=== PATIENT | female | born 1970 | race Caucasian/White ===

== ENCOUNTER → 2019-09-22 10:37 | Outpatient (BNVA) | payer MEDICARE, MEDICAID, SELFPAY | PROVIDERS: Family Provider Nurse Practitioner Family; Visit Provider Psychiatry & Neurology Psychiatry | DX: F33.42 Major depressive disorder, recurrent, in full remission (principal); F71 Moderate intellectual disabilities | CPT/HCPCS: 99213 ==

== ENCOUNTER → 2020-01-30 09:30 | Outpatient (BNVA) | payer MEDICARE, MEDICAID, SELFPAY | PROVIDERS: Visit Provider Nurse Practitioner Family | DX: Z00.00 Encounter for general adult medical examination without abnormal findings (principal); F33.42 Major depressive disorder, recurrent, in full remission; Z11.3 Encounter for screening for infections with a predominantly sexual mode of transmission; R19.7 Diarrhea, unspecified; F71 Moderate intellectual disabilities; Z11.1 Encounter for screening for respiratory tuberculosis; Z12.39 Encounter for other screening for malignant neoplasm of breast; Z13.220 Encounter for screening for lipoid disorders; Z23 Encounter for immunization | CPT/HCPCS: 80053; 80061; 81000; 85025; 86580; 86592; 87491; 87591; 87661 ==

== ENCOUNTER → 2020-02-02 10:46 | Outpatient (BNVA) | payer MEDICARE, MEDICAID, SELFPAY | PROVIDERS: Visit Provider Nurse Practitioner Family | DX: Z11.3 Encounter for screening for infections with a predominantly sexual mode of transmission (principal) | CPT/HCPCS: 87491; 87591; 87661 ==

== ENCOUNTER 2020-02-12 13:39 | Outpatient (CLI) | payer MEDICARE, MEDICAID, SELFPAY ==
--- NOTE | 2020-02-12 13:59 | MM_ITS ---
WS: [id number] BILATERAL DIGITAL SCREENING MAMMOGRAPHY WITH CAD CLINICAL INFORMATION: SCREENING HISTORY: Screening mammogram. No current complaints. COMPARISON: November 04, 2018 TECHNIQUE: Bilateral CC and MLO views. FINDINGS: The breasts are composed of heterogeneous fibroglandular density tissue, which can limit the detectio n of small underlying mass lesions. No suspicious mass, asymmetry, calcifications, or architectural d istortion. No evidence of malignancy. MM/[place] [id number] IMPRESSION: BI-RADS: 2-Benign FOLLOW UP: 1 Year Follow-up Recommend return to annual screening mammography.
== END 2020-02-12 13:40 | disposition home or self-care (01) ==
LOC: RADSHAW 13:55
PROVIDERS: PCP Nurse Practitioner Family; Visit Provider Nurse Practitioner Family
DX: Z12.31 Encounter for screening mammogram for malignant neoplasm of breast (principal)
CPT/HCPCS: 77067; 99213

== ENCOUNTER → 2020-02-23 11:45 | Outpatient (BNVA) | payer MEDICARE, MEDICAID, SELFPAY | PROVIDERS: PCP Nurse Practitioner Family; Visit Provider Nurse Practitioner Family | DX: R79.89 Other specified abnormal findings of blood chemistry (principal) | CPT/HCPCS: 80076 ==

== ENCOUNTER → 2020-03-05 10:49 | Outpatient (BNVA) | payer MEDICARE, MEDICAID, SELFPAY | PROVIDERS: PCP Nurse Practitioner Family; Visit Provider Nurse Practitioner Family | DX: R74.8 Abnormal levels of other serum enzymes (principal) | CPT/HCPCS: 80076; 86803 ==

== ENCOUNTER → 2020-03-06 07:28 | Outpatient (BNVA) | payer MEDICARE, MEDICAID, SELFPAY | PROVIDERS: PCP Nurse Practitioner Family; Visit Provider Psychiatry & Neurology Psychiatry | DX: F33.42 Major depressive disorder, recurrent, in full remission (principal); F71 Moderate intellectual disabilities | CPT/HCPCS: 99213 ==

== ENCOUNTER 2020-03-22 07:53 | Outpatient (CLI) | payer MEDICARE, MEDICAID, SELFPAY ==
--- NOTE | 2020-03-22 08:00 | US_ITS ---
WS: [id number] RIGHT UPPER QUADRANT ULTRASOUND HISTORY: elevated liver enzymes COMPARISON: CT 09/08/2018 Liver: 14.7 cm in length. Normal size and echogenicity with no intrahepatic dilatation. No mass. Port al vein is top normal size. Gallbladder: Prior cholecystectomy. CBD: 0.7 cm Pancreas: Normal size and echogenicity. Right kidney: 9.2 cm in length. Normal size kidney. There are multiple cysts within the kidney. The l argest in the mid kidney measures 2.2 x 1.9 x 2.0 cm. No solid mass. Cysts have been present on multi ple prior examinations with only mild increase in size. Aorta and IVC: Unremarkable. No ascites. US/US liver [id number] IMPRESSION: 1. Prior cholecystectomy. 2. Multiple simple RIGHT renal cysts. 3. No intrahepatic duct dilatation.
== END 2020-03-22 07:54 | disposition home or self-care (01) ==
LOC: RAD 07:57
PROVIDERS: PCP Nurse Practitioner Family; Visit Provider Nurse Practitioner Family
DX: R74.8 Abnormal levels of other serum enzymes (principal); N28.1 Cyst of kidney, acquired
CPT/HCPCS: 76705

== ENCOUNTER → 2020-05-20 16:43 | Outpatient (BNVA) | payer MEDICARE, MEDICAID, SELFPAY | PROVIDERS: PCP Nurse Practitioner Family; Visit Provider Nurse Practitioner Family | DX: Z11.59 Encounter for screening for other viral diseases (principal); J06.9 Acute upper respiratory infection, unspecified | CPT/HCPCS: 87635 ==

== ENCOUNTER → 2020-07-22 08:35 | Outpatient (BNVA) | payer MEDICARE, MEDICAID, SELFPAY | PROVIDERS: PCP Nurse Practitioner Family; Visit Provider Nurse Practitioner | DX: I10 Essential (primary) hypertension (principal); Z00.00 Encounter for general adult medical examination without abnormal findings | CPT/HCPCS: 80053; 80061 ==

== ENCOUNTER → 2020-08-06 07:28 | Outpatient (BNVA) | payer MEDICARE, MEDICAID, SELFPAY | PROVIDERS: PCP Nurse Practitioner Family; Visit Provider Psychiatry & Neurology Psychiatry | DX: F33.42 Major depressive disorder, recurrent, in full remission (principal); F71 Moderate intellectual disabilities | CPT/HCPCS: 99213 ==

== ENCOUNTER → 2020-09-10 09:18 | Outpatient (BNVA) | payer MEDICARE, MEDICAID, SELFPAY | PROVIDERS: PCP Nurse Practitioner Family; Visit Provider Nurse Practitioner Family | DX: E83.51 Hypocalcemia (principal) | CPT/HCPCS: 80048 ==

== ENCOUNTER → 2021-01-28 07:22 | Outpatient (BNVA) | payer MEDICARE, MEDICAID, SELFPAY | PROVIDERS: PCP Nurse Practitioner Family; Visit Provider Psychiatry & Neurology Psychiatry | DX: F33.42 Major depressive disorder, recurrent, in full remission (principal); F71 Moderate intellectual disabilities; G47.00 Insomnia, unspecified | CPT/HCPCS: 99214 ==

== ENCOUNTER → 2021-02-04 09:28 | Outpatient (BNVA) | payer MEDICARE, MEDICAID, SELFPAY | PROVIDERS: PCP Nurse Practitioner Family; Visit Provider Nurse Practitioner Family | DX: Z00.00 Encounter for general adult medical examination without abnormal findings (principal); F33.42 Major depressive disorder, recurrent, in full remission; I10 Essential (primary) hypertension; Z11.1 Encounter for screening for respiratory tuberculosis; Z68.32 Body mass index [BMI] 32.0-32.9, adult; Z71.82 Exercise counseling; Z12.31 Encounter for screening mammogram for malignant neoplasm of breast; F71 Moderate intellectual disabilities; Z71.3 Dietary counseling and surveillance | CPT/HCPCS: 80053; 80061; 81003; 84443; 85025 ==

== ENCOUNTER → 2021-02-06 09:53 | Outpatient (BNVA) | payer MEDICARE, MEDICAID, SELFPAY | PROVIDERS: PCP Nurse Practitioner Family; Visit Provider Nurse Practitioner Family | DX: N39.0 Urinary tract infection, site not specified (principal); E83.51 Hypocalcemia | CPT/HCPCS: 81000 ==

== ENCOUNTER → 2021-02-12 14:21 | Outpatient (BNVA) | payer MEDICARE, MEDICAID, SELFPAY | PROVIDERS: PCP Nurse Practitioner Family; Visit Provider Nurse Practitioner Family | DX: N39.0 Urinary tract infection, site not specified (principal) | CPT/HCPCS: 81000 ==

== ENCOUNTER 2021-02-18 14:43 | Emergency (ER) | payer MEDICARE, MEDICAID, SELFPAY ==
[2021-02-18 14:49] VITALS: BMI 31.8
[2021-02-18 15:01] VITALS: BP 156/71; PULSE 70; RESP 18; TEMP 36.9; O2SAT 98
--- NOTE | 2021-02-18 15:20 | ECG_ITS ---
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
--- NOTE | 2021-02-18 15:27 | W.ED.PSYCH ---
HPI - Psych General: Chief Complaint: Psychiatric Symptoms Stated Complaint: PSYCH EVAL Time Seen by Provider: 02/18/21 15:12 History of Present Illness: HPI Narrative: This patient is a 50-year-old female who presents to the emergency department for agitation. Patient has a history of mental retardation and mood disorder. Lives in a local care facility. Patient has had issues with aggression increasing over the past several weeks. Recently had an increase in her Seroquel to 300 mg a day with the patient's aggression still continues. Patient does have as needed Ativan ordered and did take Ativan about 2 hours ago but the medications only for short caregivers brought to the emergency department. Will do medical evaluation treat as needed Associated symptoms: Deny depression Review of Systems General: Reports: 10 or more systems reviewed and unremarkable except in HPI and below Const: Denies: fever(s), chills, body aches or fatigue Eyes: Denies: change in vision or blurry vision ENMT: Denies: throat pain, hoarseness or mouth pain Card: Denies: chest pain, palpitations, irregular heart rhythm, edema, swelling of feet/ankles or lightheadedness Resp: Denies: dyspnea, productive cough, non-productive cough, wheezing or pain on inspiration GI: Denies: abdominal pain, nausea or vomiting : Denies: flank pain, difficulty voiding, dysuria, urinary frequency, urinary urgency or urinary hesitancy Musc: Denies: neck pain, back pain, extremity pain, extremity swelling, joint pain, joint swelling, joint redness, joint warmth or limited range of motion Skin/Breast: Denies: rash, pruritus, erythema or skin tenderness Neuro: Denies: headache(s), numbness in extremities or weakness in extremities Psych: Reports: irritability; Denies: anxiety or depression [facility] ED PFSH: Medical History CKD (chronic kidney disease) Depression, major, recurrent, in complete remission Drug induced akathisia Hypertension Moderate intellectual disabilities PTTD (posterior tibial tendon dysfunction) Social History Second hand smoke exposure: No Alcohol intake: never Lives independently: No Housing: Other Details: skilled nursing Marital status: Single Current occupational status: disabled History of recent travel: No Current gender identity: Female Physical Exam Const: COMMON NORMALS: no acute distress, average body habitus, patient oriented x3, no limitations, healthy appearing, alert and well nourished HENMT: COMMON NORMALS: normocephalic, atraumatic, hearing grossly normal bilaterally, external ears normal, EAC's normal, TM's normal bilaterally, Normal external nose present, Normal nasal mucous membranes and turbinates present, moist oral mucous membranes, oropharynx normal, dentition normal and gingiva normal HEAD & SCALP: normocephalic and atraumatic NOSE: Normal external nose present and Normal nasal mucous membranes and turbinates present EXTERNAL EAR: Yes external ears normal EXTERNAL AUDITORY CANAL: EAC's normal TYMPANIC MEMBRANE: TM's normal bilaterally Neck/C-Spine: COMMON NORMALS: full ROM, no lymphadenopathy, supple, no meningeal signs, no JVD, Thyroid normal and No carotid bruits THYROID: Thyroid normal Chest: COMMONS NORMALS: normal inspection of the chest, normal palpation of entire chest wall, normal inspection of the breasts and normal palpation of the breasts Breast/axilla inspection: Yes normal inspection of the breasts BREAST/AXILLA PALPATION: Yes normal palpation of the breasts Resp: COMMON NORMALS: normal respiratory effort, No retractions, No use of accessory muscles, clear to auscultation bilaterally and percussion normal AUSCULTATION: clear to auscultation bilaterally PERCUSSION: percussion normal Cardio: COMMON NORMALS: no JVD, regular rate, regular rhythm, S1 normal heart sound present, S2 normal heart sound present, No gallops present (Cardio), No clicks present (Cardio), No murmurs present (Cardio), No rub (Cardio) and Peripheral pulses 2+ throughout RATE: regular rate RHYTHM: regular rhythm HEART SOUNDS: S1 normal heart sound present and S2 normal heart sound present PERIPHERAL PULSES: Peripheral pulses 2+ throughout GI: COMMON NORMALS: Normal to inspection, nondistended, normoactive bowel sounds present, Soft to palpation, non-tender, No hepatosplenomegaly present, no masses and no bruits PALPATION: Yes Soft to palpation and Yes No hepatosplenomegaly present : COMMON NORMALS: Yes no CVA tenderness, Yes normal external appearance, Yes normal appearance of the vagina, Yes normal appearance of the cervix, Yes normal bimanual exam, Yes No adnexal tenderness and Yes no masses BLADDER/KIDNEY EXAM: Yes no CVA tenderness BIMANUAL EXAM - VAGINA & UTERUS: Yes normal bimanual exam Back/Pelvis: COMMON NORMALS: no CVA tenderness, thoracic and lumbar spine normal to inspection, no thoracic nor lumbar tenderness, thoraco-lumbar ROM normal and straight leg raise negative bilaterally Extremity: COMMON NORMALS: normal to inspection, full ROM, capillary refill normal, no joint enlargement, no clubbing, cyanosis or edema, no calf tenderness and no pedal edema Neuro: COMMON NORMALS: patient oriented x3 SENSORIUM/ORIENTATION: Yes alert MENINGEAL SIGNS: Yes no meningeal signs Course Reevaluation(s): Reevaluation #1: Patient is at her mental baseline. Has a history of MR. Patient be stable for discharge. Advised nursing staff from her facility to do redirection and follow-up with Dr. Perez for any further medication adjustments. Time: 16:43 Consultations: Consultation #1: I did discuss at length with Dr. Narvaez psychiatry. We did review the patient's history and medications. He is agreeable for patient given Zyprexa in the emergency department and then discharged home recommends nursing staff at the facility to redirection exercises and protocols. And follow-up with Dr. Kemp for any further medication adjustments. States it is okay to go back to 300 of Seroquel for the time being. Until Dr. Perez evaluates Time: 16:44 Vital Signs: Vital signs: Vital Signs Temperature 98.4 F 02/18/21 15:01 Pulse Rate 70 02/18/21 15:01 Respiratory Rate 18 02/18/21 15:01 Blood Pressure 156/71 02/18/21 15:01 Pulse Oximetry 98 02/18/21 15:01 MDM - Psych MDM Narrative: Medical decision making narrative: This patient is a 50-year-old female who presents to the emergency department for agitation. Patient has a history of mental retardation and mood disorder. Lives in a local care facility. Patient has had issues with aggression increasing over the past several weeks. Recently had an increase in her Seroquel to 300 mg a day with the patient's aggression still continues. Patient does have as needed Ativan ordered and did take Ativan about 2 hours ago but the medications only for short caregivers brought to the emergency department. Patient is at her mental baseline. Has a history of MR. Patient be stable for discharge. Advised nursing staff from her facility to do redirection and follow-up with Dr. Perez for any further medication adjustments. I did discuss at length with Dr. Narvaez psychiatry. We did review the patient's history and medications. He is agreeable for patient given Zyprexa in the emergency department and then discharged home recommends nursing staff at the facility to redirection exercises and protocols. And follow-up with Dr. Kemp for any further medication adjustments. States it is okay to go back to 300 of Seroquel for the time being. Until Dr. Perez evaluates Lab Data: Labs: Lab Results 02/18/21 02/18/21 Range/Units 15:30 15:30 WBC 10.1 H (4.0-10.0) 10^3/ uL RBC 4.12 (4.1-5.3) 10^6/u L Hgb 12.8 (11.5-15.3) g/dL Hct 40.1 (37.0-47.0) % MCV 97.3 (81-99) fL MCH 31.1 (28.0-34.0) pg MCHC 31.9 (30.0-36.0) g/dL RDW 13.6 (12.1-15.1) % Plt Count 227 (130-400) 10^3/c mm MPV 11.4 H (7.4-10.4) fL Neut % (Auto) 75.5 % Lymph % (Auto) 17.2 % Maries % (Auto) 5.6 % Eos % (Auto) 0.7 % Baso % (Auto) 0.6 % Neut # (Auto) 7.61 (1.8-7.7) 10^3/u L Lymph # (Auto) 1.7 (0.8-4.8) 10^3/u L Maries # (Auto) 0.6 (0.2-0.9) 10^3/u L Eos # (Auto) 0.1 (0.0-0.8) 10^3/u L Baso # (Auto) 0.1 (0.0-0.1) 10^3/u L Nucleated RBC % (a uto) 0 % Nucleated RBCs # 0.0 /100WBC Sodium 137 (136-145) mmol/L Potassium 4.1 (3.5-5.1) mmol/L Chloride 103 (98-107) mmol/L Carbon Dioxide 23 (22-29) mmol/L Anion Gap 15.1 (5-19) BUN 12 (6-20) mg/dL Creatinine 0.8 (0.5-0.9) mg/dL GFR Calculation 76.6 L (90-130) mL/min Glucose 95 (65-115) mg/dL Calculated Osmolal ity 284 L (285-295) mOsm/k g Calcium 8.9 (8.5-10.5) mg/dL Total Bilirubin 0.2 (0.15-1.2) mg/dL AST 17 (0-32) U/L ALT 14 (0-33) U/L Alkaline Phosphata se 73 (35-105) IU/L Total Protein 6.9 (6.6-8.7) g/dL Albumin 3.9 (3.5-5.2) g/dL Globulin 3.0 (1.3-4.6) g/dL Salicylates < 0.3 L (3-10) mg/dL Acetaminophen < 5.0 L (10-30) ug/mL EKG Data^: EKG 1: Attestation: I personally reviewed and interpreted this EKG as follows: EKG interpretation date: 02/18/21 EKG interpretation time: 15:36 Prior EKG tracings: not available for review Interpretation: Sinus rhythm heart rate 65 normal EKG Discharge Plan Discharge Patient Disposition: Home Clinical Impression: Moderate intellectual disabilities, Aggression aggravated Condition: Stable Prescriptions: No Action polyethylene glycol 3350 [Miralax] 17 gram/dose powder 17 g PO DAILY PRN (Reason: constipation) 30 Days Qty: 119 RF: 5 Dimetapp Cold-Allergy (PE) 1-2.5 mg/5 mL solution 5 ml PO Q6H PRN (Reason: cough) 30 Days Qty: 237 RF: 0 Mylanta Maximum Strength 400-400-40 mg/5 mL suspension 30 ml PO TID PRN (Reason: indigestion) 30 Days Qty: 355 RF: 11 magnesium hydroxide [Milk of Magnesia] 400 mg/5 mL suspension 30 ml PO BID PRN (Reason: indigestion) 30 Days Qty: 3000 RF: 11 L norgest/e.estradiol-e.estrad [Daysee] 0.15 mg-30 mcg (84)/10 mcg (7) tablets,dose pack,3 month See Rx Instructions .ROUTE .COMPLEX 84 Days Qty: 84 RF: 11 acetaminophen [Tylenol] 325 mg tablet 650 mg PO Q6H PRN (Reason: fever of 100.4F or pain) 30 Days Qty: 120 RF: 11 olopatadine 0.2 % drops 1 drp ophthalmic (eye) DAILY@1900 RF: 0 Fish Oil Concentrate 1,000 mg capsule 1,000 mg PO BID@0800,1900 RF: 0 Zoloft 100 mg tablet 200 mg PO DAILY@1900 RF: 0 Seroquel 200 mg tablet 200 mg PO BEDTIME@0700 RF: 0 calcium carbonate-vitamin D3 600 mg(1,500mg) -200 unit tablet 1 tab PO DAILY@0800 RF: 0 Fiber Laxative (ca polycarbo) 625 mg tablet 625 mg PO DAILY@0800 RF: 0 Colace 100 mg capsule 100 mg PO BID@0800,1900 RF: 0 mirtazapine 45 mg tablet 45 mg PO DAILY@1900 RF: 0 lorazepam 1 mg tablet 1 mg PO TID@08,13,19 RF: 0 Flonase Allergy Relief 50 mcg/actuation spray,suspension 2 spray intranasal DAILY@0800 RF: 0 metoprolol tartrate 25 mg tablet 25 mg PO BID@0800,1900 RF: 0 Seroquel 50 mg tablet 50 mg PO BEDTIME@0700 RF: 0 levocetirizine 5 mg tablet 5 mg PO DAILY@1900 RF: 0 Discharge Orders: Discharge ED (Routine); Ordered 02/18/21 Ordered By: Usman Acuña Referrals: Tameka Saucedo FNP-C [Primary Care Provider] - Discharge Diet: Advance as tolerated Patient Instructions: Opioid Safety Activity Restrictions/Additional Instructions: Continue all home medications. May increase back to 300 of Seroquel. Follow-up with Dr. Perez as instructed for any medication adjustments for your chronic conditions Coding Level of Care Code ED Manager Location for Elder Fwd Exam Comprehensive
[2021-02-18 15:52] LABS: Basophils # 0.1 10^3/uL (0.0-0.1); Basophils % 0.6 %; Eosinophils # 0.1 10^3/uL (0.0-0.8); Eosinophils % 0.7 %; Hematocrit 40.1 % (37.0-47.0); Hemoglobin 12.8 g/dL (11.5-15.3); Lymphocytes # 1.7 10^3/uL (0.8-4.8); Lymphocytes % 17.2 %; Mean Corpuscular HGB Conc 31.9 g/dL (30.0-36.0); Mean Corpuscular Hemoglobin 31.1 pg (28.0-34.0); Mean Corpuscular Volume 97.3 fL (81-99); Mean Platelet Volume 11.4 fL (7.4-10.4); Monocytes # 0.6 10^3/uL (0.2-0.9); Monocytes % 5.6 %; Neutrophils # 7.61 10^3/uL (1.8-7.7); Neutrophils % 75.5 %; Nucleated Red Blood Cells % 0 %; Platelet Count 227 10^3/cmm (130-400); Red Blood Count 4.12 10^6/uL (4.1-5.3); Red Cell Distribution Width 13.6 % (12.1-15.1); White Blood Count 10.1 10^3/uL (4.0-10.0)
--- NOTE | 2021-02-18 16:07 | PC.NURSE ---
pt refusing to give urine specimen at this time. offered drink, popcicle, tv... pt states she wants to go home and she will walk out the door.
[2021-02-18 16:09] LABS: Alanine Aminotransferase 14 U/L (0-33); Albumin Level 3.9 g/dL (3.5-5.2); Alkaline Phosphatase 73 IU/L (35-105); Anion Gap 15.1 (5-19); Aspartate Amino Transferase 17 U/L (0-32); Blood Urea Nitrogen 12 mg/dL (6-20); Calcium 8.9 mg/dL (8.5-10.5); Carbon Dioxide 23 mmol/L (22-29); Chloride 103 mmol/L (98-107); Glomerular Filtration Rate 76.6 mL/min (90-130); Glucose 95 mg/dL (65-115); Osmolality Calculated 284 mOsm/kg (285-295); Potassium 4.1 mmol/L (3.5-5.1); Sodium 137 mmol/L (136-145); Total Bilirubin 0.2 mg/dL (0.15-1.2); Total Protein 6.9 g/dL (6.6-8.7)
[2021-02-18 16:12] LABS: Acetaminophen < 5.0 ug/mL (10-30); Salicylate < 0.3 mg/dL (3-10)
[2021-02-18] MEDS: OLANZapine 10 mg TABLET PO (16:54)
== END 2021-02-18 17:01 | disposition home or self-care (01) ==
PROVIDERS: Emergency Provider Emergency Medicine; PCP Nurse Practitioner Family
DX: R45.1 Restlessness and agitation (principal); F71 Moderate intellectual disabilities; I10 Essential (primary) hypertension; Z79.899 Other long term (current) drug therapy
CPT/HCPCS: 80053; 80307; 85025; 93005; 99284

== ENCOUNTER 2021-03-07 13:51 | Outpatient (CLI) | payer MEDICARE, MEDICAID, SELFPAY ==
--- NOTE | 2021-03-07 14:04 | MM_ITS ---
WS: [id number] BILATERAL DIGITAL SCREENING MAMMOGRAPHY WITH CAD CLINICAL INFORMATION: SCREENING HISTORY: Screening mammogram. No current complaints. COMPARISON: February 12, 2020 TECHNIQUE: Bilateral CC and MLO views. FINDINGS: The breasts are composed of heterogeneous fibroglandular density tissue, which can limit the detectio n of small underlying mass lesions. No suspicious mass, asymmetry, calcifications, or architectural d istortion. No evidence of malignancy. MM/[place] [id number] IMPRESSION: BI-RADS: 1-Negative FOLLOW UP: 1 Year Follow-up Recommend return to annual screening mammography.
== END 2021-03-07 13:52 | disposition home or self-care (01) ==
PROVIDERS: PCP Nurse Practitioner Family; Visit Provider Nurse Practitioner Family
DX: F33.42 Major depressive disorder, recurrent, in full remission (principal); Z12.31 Encounter for screening mammogram for malignant neoplasm of breast; G47.00 Insomnia, unspecified; F71 Moderate intellectual disabilities
CPT/HCPCS: 77067; 99214

== ENCOUNTER → 2021-03-13 13:18 | Outpatient (BNVA) | payer MEDICARE, MEDICAID, SELFPAY | PROVIDERS: PCP Nurse Practitioner Family; Visit Provider Nurse Practitioner Family | DX: N39.0 Urinary tract infection, site not specified (principal) | CPT/HCPCS: 81000 ==

== ENCOUNTER → 2021-05-27 13:32 | Outpatient (BNVA) | payer MEDICARE, MEDICAID, SELFPAY | PROVIDERS: PCP Nurse Practitioner Family; Visit Provider Nurse Practitioner Family | DX: N39.0 Urinary tract infection, site not specified (principal); R31.21 Asymptomatic microscopic hematuria | CPT/HCPCS: 81000 ==

== ENCOUNTER → 2021-06-09 08:19 | Outpatient (BNVA) | payer MEDICARE, MEDICAID, SELFPAY | PROVIDERS: PCP Nurse Practitioner Family; Visit Provider Psychiatry & Neurology Psychiatry | DX: F33.42 Major depressive disorder, recurrent, in full remission (principal); F71 Moderate intellectual disabilities; G47.00 Insomnia, unspecified | CPT/HCPCS: 99213 ==

== ENCOUNTER → 2021-06-24 14:23 | Outpatient (BNVA) | payer MEDICARE, MEDICAID, SELFPAY | PROVIDERS: PCP Nurse Practitioner Family; Visit Provider Nurse Practitioner Family | DX: N39.0 Urinary tract infection, site not specified (principal) | CPT/HCPCS: 81000 ==

== ENCOUNTER → 2021-07-22 08:23 | Outpatient (BNVA) | payer MEDICARE, MEDICAID, SELFPAY | PROVIDERS: PCP Nurse Practitioner Family; Visit Provider Nurse Practitioner Family | DX: Z00.00 Encounter for general adult medical examination without abnormal findings (principal); I10 Essential (primary) hypertension | CPT/HCPCS: 80053; 80061; 81000; 85025 ==

== ENCOUNTER 2021-08-27 13:43 | Outpatient (CLI) | payer MEDICARE, MEDICAID, SELFPAY ==
--- NOTE | 2021-08-27 14:15 | US_ITS ---
WS: [id number] ULTRASOUND RENAL TECHNIQUE: Ultrasound examination of both kidneys. CLINICAL INFORMATION: R31.9 - Hematuria, unspecified COMPARISON: None. FINDINGS: Bilateral renal cysts measuring 2.1 x 1.9 x 2.3 cm right mid kidney with one or 2 septation s 1.4 x 1.3 x 1.5 cm left mid kidney with a simple appearance. RIGHT: Right kidney is normal in size and appearance. Echogenicity: Normal. Cortical thickness: 1.3 cm; Normal. Hydronephrosis: None. Perinephric fluid: None. Right kidney measures: 9.1 cm x 4.2 cm x 4.0 cm. LEFT: Left kidney is normal in size and appearance. Echogenicity: Normal. Cortical thickness: 1.3 cm; Normal. Hydronephrosis: None. Perinephric fluid: None. Left kidney measures: 10.1 cm x 4.8 cm x 5.2 cm. Normal visualized aorta. US/US renal BI* [id number] IMPRESSION: 1. Bilateral renal cysts measuring 2.1 x 1.9 x 2.3 cm right mid kidney with on e or 2 septations and 1.4 x 1.3 x 1.5 cm left mid kidney with a simple appearan ce. 2. No hydronephrosis in either kidney. 3. Normal bladder.
== END 2021-08-27 13:44 | disposition home or self-care (01) ==
LOC: RAD 13:50
PROVIDERS: PCP Nurse Practitioner Family; Visit Provider Nurse Practitioner Family
DX: R31.9 Hematuria, unspecified (principal); Q61.02 Congenital multiple renal cysts
CPT/HCPCS: 76770

== ENCOUNTER → 2021-09-16 14:28 | Outpatient (BNVA) | payer MEDICARE, MEDICAID, SELFPAY | PROVIDERS: PCP Nurse Practitioner Family; Visit Provider Nurse Practitioner Family | DX: R39.9 Unspecified symptoms and signs involving the genitourinary system (principal) | CPT/HCPCS: 81000 ==

== ENCOUNTER → 2021-09-22 07:27 | Outpatient (BNVA) | payer MEDICARE, MEDICAID, SELFPAY | PROVIDERS: PCP Nurse Practitioner Family; Visit Provider Psychiatry & Neurology Psychiatry | DX: F33.42 Major depressive disorder, recurrent, in full remission (principal); F71 Moderate intellectual disabilities; G47.00 Insomnia, unspecified | CPT/HCPCS: 99214 ==

== ENCOUNTER → 2021-09-30 13:14 | Outpatient (BNVA) | payer MEDICARE, MEDICAID, SELFPAY | PROVIDERS: PCP Nurse Practitioner Family; Visit Provider Nurse Practitioner Family | DX: N39.0 Urinary tract infection, site not specified (principal); N28.1 Cyst of kidney, acquired | CPT/HCPCS: 81000 ==

== ENCOUNTER → 2021-10-22 10:49 | Outpatient (BNVA) | payer MEDICARE, MEDICAID, SELFPAY | PROVIDERS: PCP Nurse Practitioner Family; Visit Provider Nurse Practitioner Family | DX: N39.0 Urinary tract infection, site not specified (principal); N28.1 Cyst of kidney, acquired | CPT/HCPCS: 81003 ==

== ENCOUNTER 2021-11-14 08:58 | Outpatient (CLI) | payer MEDICARE, MEDICAID, SELFPAY ==
--- NOTE | 2021-11-14 11:00 | CT_ITS ---
WS: [id number] Exam: CT abdomen pelvis wo/w [id number] Date/Time of Exam: 11/14/2021 9:24 AM Reason For Exam: BILATERAL RENAL CYST DLP: 3320.[address] scans at [facility] use at least one of these dose optimization techniques: automated e xposure control; mA and/or kV adjustment per patient size (includes targeted exams where dose is matc hed to clinical indication); or iterative reconstruction. Comparison 09/08/2018. Lower lung zones are clear. The liver, stomach, spleen and pancreas appear normal. Normal adrenal gla nds. The gallbladder surgically absent. Abdominal aorta and IVC are unremarkable in appearance. Multi ple bilateral renal cysts are noted. No sign of renal obstruction. No lymphadenopathy. No free air. S mall bowel loops are normal in caliber. No significant large bowel abnormality seen. No sign of acute appendix. 10 mm cyst in the right ovary, 12 mm cyst in the left ovary. No pelvic lymphadenopathy or free fluid. The uterus is unremarkable as visualized. Intact urinary bladder. The abdominal wall is i ntact. No destructive bone lesions are seen. CT/CT abdomen pelvis wo/w [id number] IMPRESSION: 1. Multiple bilateral renal cysts are noted. No renal obstruction. 2. 10 mm cyst in the right ovary, 12 mm cyst in the left ovary. 3. No mass, lymphadenopathy or acute process in the abdomen or pelvis.
== END 2021-11-14 08:59 | disposition home or self-care (01) ==
LOC: RAD 09:08
PROVIDERS: PCP Nurse Practitioner Family; Visit Provider Urology
DX: N28.1 Cyst of kidney, acquired (principal); N83.201 Unspecified ovarian cyst, right side; N83.202 Unspecified ovarian cyst, left side
CPT/HCPCS: 74178

== ENCOUNTER → 2021-11-17 14:30 | Outpatient (BNVA) | payer MEDICARE, MEDICAID, SELFPAY | PROVIDERS: PCP Nurse Practitioner Family; Visit Provider Urology | DX: N28.1 Cyst of kidney, acquired (principal) | CPT/HCPCS: 81003 ==

== ENCOUNTER → 2021-12-08 11:06 | Outpatient (BNVA) | payer MEDICARE, MEDICAID, SELFPAY | PROVIDERS: PCP Nurse Practitioner Family; Visit Provider Nurse Practitioner Family | DX: I10 Essential (primary) hypertension (principal); E55.9 Vitamin D deficiency, unspecified; N18.9 Chronic kidney disease, unspecified; H61.23 Impacted cerumen, bilateral; K59.00 Constipation, unspecified; F71 Moderate intellectual disabilities | CPT/HCPCS: 80053; 80061; 81000; 82306; 82607; 83735; 84443; 85025 ==

== ENCOUNTER → 2021-12-19 07:02 | Outpatient (BNVA) | payer MEDICARE, MEDICAID, SELFPAY | PROVIDERS: PCP Nurse Practitioner Family; Visit Provider Psychiatry & Neurology Psychiatry | DX: F33.42 Major depressive disorder, recurrent, in full remission (principal); F71 Moderate intellectual disabilities; G47.00 Insomnia, unspecified | CPT/HCPCS: 81000; 99213 ==

== ENCOUNTER → 2022-02-02 11:52 | Outpatient (BNVA) | payer MEDICARE, MEDICAID, SELFPAY | PROVIDERS: PCP Nurse Practitioner Family; Visit Provider Family Medicine | DX: N18.9 Chronic kidney disease, unspecified (principal); I10 Essential (primary) hypertension; E53.8 Deficiency of other specified B group vitamins; G47.00 Insomnia, unspecified; R87.619 Unspecified abnormal cytological findings in specimens from cervix uteri; Z12.31 Encounter for screening mammogram for malignant neoplasm of breast; Z01.419 Encounter for gynecological examination (general) (routine) without abnormal findings | CPT/HCPCS: 80053; 80061; 82607; 84443; 85025; 87624 ==

== ENCOUNTER 2022-02-06 09:25 | Emergency (ER) | payer MEDICARE, MEDICAID, SELFPAY ==
[2022-02-06 10:44] VITALS: BP 156/96; PULSE 67; RESP 15; TEMP 36.2; O2SAT 98; BMI 32.1
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
--- NOTE | 2022-02-06 11:17 | XR_ITS ---
WS: [id number] Exam: XR femur LT min 2V* [id number] Date/Time of Exam: 02/06/2022 11:21 AM Reason For Exam: pain No fractures, soft tissue swelling, or calcifications are noted. The femur is in adequate position. No periosteal reaction is noted. XR/XR femur LT min 2V* [id number] IMPRESSION: Negative left femur.
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
[2022-02-06] MEDS: acetaminophen 500 mg Tablet PO (12:19)
[2022-02-06 13:24] VITALS: BP 146/89; PULSE 96; RESP 18; O2SAT 99
== END 2022-02-06 13:29 ==
PROVIDERS: Emergency Provider Emergency Medicine; PCP Nurse Practitioner Family
DX: S02.609A Fracture of mandible, unspecified, initial encounter for closed fracture (principal); S06.5X9A Traumatic subdural hemorrhage with loss of consciousness of unspecified duration, initial encounter; M25.511 Pain in right shoulder; M79.652 Pain in left thigh; S40.011A Contusion of right shoulder, initial encounter; S70.12XA Contusion of left thigh, initial encounter; Y04.2XXA Assault by strike against or bumped into by another person, initial encounter; I10 Essential (primary) hypertension
CPT/HCPCS: 70450; 70486; 73030; 73552; 99285

== ENCOUNTER 2022-03-27 10:21 | Outpatient (CLI) | payer MEDICARE, OTHER, SELFPAY ==
--- NOTE | 2022-03-27 10:28 | MM_ITS ---
WS: [id number] BILATERAL SCREENING DIGITAL TOMOSYNTHESIS MAMMOGRAM WITH CAD HISTORY: SCREENING COMPARISON: 03/07/2021, 11/04/2018 Bilateral CC and MLO views with tomosynthesis and synthetic mammography submitted. Computer aided det ection analyzed. Breast composition: The breasts are heterogeneously dense, which may obscure small masses. No suspici ous masses, microcalcifications or architectural distortion. MM/[place] [id number] IMPRESSION: BI-RADS: 1-Negative FOLLOW UP: 1 Year Follow-up
== END 2022-03-27 10:22 | disposition home or self-care (01) ==
LOC: RAD 10:21
PROVIDERS: PCP Nurse Practitioner Family; Visit Provider Nurse Practitioner Family
DX: Z12.31 Encounter for screening mammogram for malignant neoplasm of breast (principal)
CPT/HCPCS: 77063; 77067

== ENCOUNTER → 2022-04-22 10:36 | Outpatient (BNVA) | payer MEDICARE, OTHER, SELFPAY | PROVIDERS: PCP Nurse Practitioner Family; Visit Provider Nurse Practitioner Family | DX: N39.0 Urinary tract infection, site not specified (principal) | CPT/HCPCS: 81000 ==

== ENCOUNTER → 2022-06-05 10:15 | Outpatient (BNVA) | payer MEDICARE, MEDICAID, SELFPAY | PROVIDERS: PCP Nurse Practitioner Family; Visit Provider Family Medicine | DX: E53.8 Deficiency of other specified B group vitamins (principal) | CPT/HCPCS: 82607 ==

== ENCOUNTER → 2022-07-17 09:21 | Outpatient (BNVA) | payer MEDICARE, MEDICAID, SELFPAY | PROVIDERS: PCP Nurse Practitioner Family; Visit Provider Nurse Practitioner Family | DX: R30.9 Painful micturition, unspecified (principal); K30 Functional dyspepsia; N39.0 Urinary tract infection, site not specified; K21.9 Gastro-esophageal reflux disease without esophagitis | CPT/HCPCS: 81003; 87077; 87086; 87184 ==

== ENCOUNTER → 2022-07-21 10:41 | Outpatient (BNVA) | payer MEDICARE, MEDICAID, SELFPAY | PROVIDERS: PCP Nurse Practitioner Family; Visit Provider Nurse Practitioner Family | DX: I10 Essential (primary) hypertension (principal); E53.8 Deficiency of other specified B group vitamins | CPT/HCPCS: 80053; 80061; 85025 ==

== ENCOUNTER 2022-09-28 13:20 | Emergency (ER) | payer MEDICARE, MEDICAID, SELFPAY ==
[2022-09-28] VITALS (37 sets, daily range): BP systolic 126–150; BP diastolic 84–95; PULSE 75–94; RESP 10–31; TEMP 36.8; O2SAT 95–99; BMI 32.1
--- NOTE | 2022-09-28 13:53 | ED_ITS ---
HPI - Seizure General: Chief Complaint: Seizure Stated Complaint: SEIZURE Time Seen by Provider: 09/28/22 13:26 History of Present Illness: HPI Narrative: Patient is brought in by EMS after having 2 seizures today. Per the caregiver the patient had 2 seizures within about 10 minutes. States that each 1 lasted a couple of minutes. States that after the second seizure she is back to her baseline mental status. They deny any cold symptoms including no fever, cough, congestion, vomiting, or diarrhea in the last few days. They state that a year ago she suffered a head injury after which she developed seizures. She was on Keppra and doing well until about a month ago when they elected to take her off the Keppra secondary to aggressive behavior. Caregiver states that she has been doing well until today. She is on Ativan 1 mg 3 times a day until a few days ago when they changed it to 2 mg twice a day. Seizure History: Yes Place: Home Associated symptoms: Deny chest pain or fever(s) Review of Systems Const: Reports: body aches; Denies: fever(s) Eyes: Reports: blurry vision; Denies: change in vision ENMT: Denies: throat pain or odynophagia Card: Reports: palpitations; Denies: chest pain Resp: Denies: dyspnea or productive cough GI: Denies: abdominal pain, nausea or vomiting : Denies: flank pain or dysuria Musc: Denies: neck pain or back pain Skin/Breast: Denies: rash or pruritus Neuro: Denies: headache(s) or numbness in extremities Endo: Reports: excessive sweating; Denies: polyuria PFSH ED PFSH: Medical History Bilateral renal cysts CKD (chronic kidney disease) Depression, major, recurrent, in complete remission Drug induced akathisia Hypertension Moderate intellectual disabilities Psychiatric care PTTD (posterior tibial tendon dysfunction) Social History Smoking and tobacco status: never smoked Second hand smoke exposure: No Alcohol intake: never Lives independently: No Housing: Other Details: nursing home Marital status: Single Current occupational status: disabled History of recent travel: No Current gender identity: Female Physical Exam Const: COMMON NORMALS: no acute distress, healthy appearing and alert HENMT: COMMON NORMALS: normocephalic and atraumatic HEAD & SCALP: normocephalic and atraumatic Eye: COMMON NORMALS: Equal, round and reactive pupils present and EOMs intact bilaterally PUPIL: Yes Equal, round and reactive pupils present Neck/C-Spine: COMMON NORMALS: full ROM and supple Resp: COMMON NORMALS: normal respiratory effort, No retractions and No use of accessory muscles Cardio: COMMON NORMALS: regular rate and regular rhythm RATE: regular rate RHYTHM: regular rhythm GI: COMMON NORMALS: Normal to inspection, nondistended, normoactive bowel sounds present, Soft to palpation and non-tender PALPATION: Yes Soft to palpation Back/Pelvis: COMMON NORMALS: thoracic and lumbar spine normal to inspection and no thoracic nor lumbar tenderness Extremity: COMMON NORMALS: normal to inspection and full ROM Neuro: SENSORIUM/ORIENTATION: Yes alert Psych: COMMON NORMALS: mental status grossly normal and cooperative Skin: COMMON NORMALS: no rashes or lesions noted and no wounds GENERAL SKIN EXAM: no rashes or lesions noted Course Vital Signs: Vital signs: Vital Signs Temperature 98.3 F 09/28/22 13:21 Pulse Rate 89 09/28/22 14:55 Respiratory Rate 23 H 09/28/22 14:55 Blood Pressure 140/84 09/28/22 14:55 Pulse Oximetry 97 09/28/22 14:55 Oxygen Delivery Me thod 09/28/22 13:35 MDM - Seizure MDM Narrative Medical decision making narrative: Patient is brought in by EMS after having 2 seizures today. Per the caregiver the patient had 2 seizures within about 10 minutes. States that each 1 lasted a couple of minutes. States that after the second seizure she is back to her baseline mental status. They deny any cold symptoms including no fever, cough, congestion, vomiting, or diarrhea in the last few days. They state that a year ago she suffered a head injury after which she developed seizures. She was on Keppra and doing well until about a month ago when they elected to take her off the Keppra secondary to aggressive behavior. Caregiver states that she has been doing well until today. She is on Ativan 1 mg 3 times a day until a few days ago when they changed it to 2 mg twice a day. Physical exam is unremarkable. Will check labs, and reassess. On reassessment I talked to the patient and caregiver about the test results. Will discharge home at this time with precautions to return for worsening or changing symptoms. Lab Data 09/28/22 14:37 09/28/22 14:37 Labs: Laboratory Results WBC 9.2 10^3/uL (4.0-10.0) 09/28/22 14:37 RBC 4.16 10^6/uL (4.1-5.3) 09/28/22 14:37 Hgb 12.9 g/dL (11.5-15.3) 09/28/22 14:37 Hct 39.9 % (37.0-47.0) 09/28/22 14:37 MCV 95.9 fl (81-99) 09/28/22 14:37 MCH 31.0 pg (28.0-34.0) 09/28/22 14:37 MCHC 32.3 g/dL (30.0-36.0) 09/28/22 14:37 RDW 13.2 % (12.1-15.1) 09/28/22 14:37 Plt Count 218 10^3/cmm (130-400) 09/28/22 14:37 MPV 10.7 fL (7.4-10.4) H 09/28/22 14:37 Neut % (Auto) 73.3 % 09/28/22 14:37 Lymph % (Auto) 18.0 % 09/28/22 14:37 [place] % (Auto) 6.6 % 09/28/22 14:37 Eos % (Auto) 1.3 % 09/28/22 14:37 Baso % (Auto) 0.5 % 09/28/22 14:37 Neut # (Auto) 6.71 10^3/uL (1.8-7.7) 09/28/22 14:37 Lymph # (Auto) 1.7 10^3/uL (0.8-4.8) 09/28/22 14:37 [place] # (Auto) 0.6 10^3/uL (0.2-0.9) 09/28/22 14:37 Eos # (Auto) 0.1 10^3/uL (0.0-0.8) 09/28/22 14:37 Baso # (Auto) 0.1 10^3/uL (0.0-0.1) 09/28/22 14:37 Nucleated RBC % (auto) 0 % 09/28/22 14:37 Nucleated RBCs # 0.0 /100WBC 09/28/22 14:37 Sodium 140 mmol/L (136-145) 09/28/22 14:37 Potassium 4.1 mmol/L (3.5-5.1) 09/28/22 14:37 Chloride 105 mmol/L (98-107) 09/28/22 14:37 Carbon Dioxide 25 mmol/L (22-29) 09/28/22 14:37 Anion Gap 14.1 (5-19) 09/28/22 14:37 BUN 20 mg/dL (6-20) 09/28/22 14:37 Creatinine 0.8 mg/dL (0.5-0.9) 09/28/22 14:37 GFR Calculation 75.9 mL/min (90-130) L 09/28/22 14:37 Glucose 104 mg/dL (65-115) 09/28/22 14:37 Calculated Osmolality 293 mOsm/kg (285-295) 09/28/22 14:37 Calcium 9.2 mg/dL (8.5-10.5) 09/28/22 14:37 Total Bilirubin 0.2 mg/dL (0.15-1.2) 09/28/22 14:37 AST 15 U/L (0-32) 09/28/22 14:37 ALT 18 U/L (0-33) 09/28/22 14:37 Alkaline Phosphatase 67 U/L (35-105) 09/28/22 14:37 Total Protein 6.7 g/dL (6.6-8.7) 09/28/22 14:37 Albumin 4.0 g/dL (3.5-5.2) 09/28/22 14:37 Globulin 2.7 g/dL (1.3-4.6) 09/28/22 14:37 Urine Color Light yellow (Yellow) 09/28/22 15:03 Urine Appearance Hazy (CLEAR) A 09/28/22 15:03 Urine pH 6.5 (5-7) 09/28/22 15:03 Ur Specific [place] 1.010 (1.005-1.030) 09/28/22 15:03 Urine Protein Neg (Negative) 09/28/22 15:03 Urine Glucose (UA) Norm (Normal) 09/28/22 15:03 Urine Ketones Negative (Negative) 09/28/22 15:03 Urine Blood Neg (Negative) 09/28/22 15:03 Urine Nitrate Negative (Negative) 09/28/22 15:03 Urine Bilirubin Neg (Negative) 09/28/22 15:03 Prot Sulfosalicylic Acd Negative (Negative) 09/28/22 15:03 Urine Urobilinogen Norm mg/dL (Negative) 09/28/22 15:03 Ur Leukocyte Esterase Negative (Negative) 09/28/22 15:03 Urine RBC 0-4 /hpf (0-2) H 09/28/22 15:03 Urine WBC 5-10 /hpf (0-5) H 09/28/22 15:03 Ur Squamous Epith Cells 0-4 /hpf (0-5) H 09/28/22 15:03 Amorphous Sediment 2+ /hpf 09/28/22 15:03 Urine Bacteria 3+ /hpf (NONE) H 09/28/22 15:03 Discharge Plan Discharge Patient Disposition: Home Clinical Impression: Seizure Condition: Stable Prescriptions: No Action Mylanta Maximum Strength 400-400-40 mg/5 mL suspension 30 ml PO TID PRN (Reason: indigestion) 30 Days Qty: 355 11RF calcium carbonate-vitamin D3 600 mg-5 mcg (200 unit) tablet 1 tab PO DAILY@0800 Qty: 100 4RF Fish Oil Concentrate 1,000 mg capsule 1,000 mg PO BID@0800,1900 Qty: 180 4RF L norgest/e.estradiol-e.estrad [Daysee] 0.15 mg-30 mcg (84)/10 mcg (7) tablets,dose pack,3 month 1 tab PO DAILY Qty: 182 3RF Rx Instructions: skip placebo week sertraline [Zoloft] 100 mg tablet 200 mg PO DAILY@1900 Qty: 60 11RF cyanocobalamin (vitamin B-12) 1,000 mcg capsule 1,000 mcg PO DAILY Qty: 90 1RF levocetirizine 5 mg tablet 5 mg PO DAILY Qty: 30 11RF Fiber Laxative (ca polycarbo) 625 mg tablet 625 mg PO DAILY Qty: 30 11RF acetaminophen [Tylenol] 325 mg tablet 650 mg PO Q6H PRN (Reason: fever of 100.4F or pain) 30 Days Qty: 120 11RF Rx Instructions: not to exceed 8 tabs in 24 hours melatonin 10 mg tablet extended release 10 mg PO .qhs Qty: 30 11RF Dimetapp DM Cold-Cough (PE) 1-2.5-5 mg/5 mL solution 20 ml PO Q4H PRN (Reason: cough) 30 Days Qty: 118 5RF metoprolol tartrate 25 mg tablet See Rx Instructions .ROUTE .COMPLEX Qty: 180 3RF Dose Instruction: TAKE ONE TABLET BY MOUTH TWICE DAILY AT 8:00AM AND AT 7:00PM - CALL CLINIC WITH BLOOD PRESSURE GREATER THAN 160 / 100 OR LOWER THAN 100/60 Rx Instructions: TAKE ONE TABLET BY MOUTH TWICE DAILY AT 8:00AM AND AT 7:00PM - CALL CLINIC WITH BLOOD PRESSURE GREATER THAN 160 / 100 OR LOWER THAN 100/60 magnesium hydroxide [Milk of Magnesia] 400 mg/5 mL suspension See Rx Instructions .ROUTE .COMPLEX Qty: 3000 5RF Dose Instruction: TAKE 2 TABLESPOONFULS ( 30 ML'S ) BY MOUTH TWICE DAILY NEEDED FOR INDIGESTION Rx Instructions: TAKE 2 TABLESPOONFULS ( 30 ML'S ) BY MOUTH TWICE DAILY NEEDED FOR INDIGESTION polyethylene glycol 3350 [Miralax] 17 gram/dose powder 17 g PO DAILY PRN (Reason: constipation) 30 Days Qty: 119 5RF olopatadine 0.2 % drops 1 drp ophthalmic (eye) DAILY@1900 quetiapine 300 mg tablet 300 mg PO QPM lorazepam 2 mg tablet 2 mg PO BID Colace 100 mg capsule 100 mg PO BID@0800,1900 mirtazapine 45 mg tablet 45 mg PO QPM fluticasone propionate 50 mcg/actuation spray,suspension 2 spray intranasal DAILY Discharge Orders: Discharge ED (Routine); Ordered 09/28/22 Ordered By: Deejay Coffey Referrals: Petty Brewer FNP [Primary Care Provider] - Patient Instructions: Seizures Coding Level of Care Code ED [facility] for [facility]
--- NOTE | 2022-09-28 14:24 | PC.PHAR ---
Addendum entered by Tri Wilson 09/28/22 14:27: PTS LAST DOSE OF KEPPRA 09/16/22 Original Note: PT HERE FROM [facility] - MEDS VERIFIED USING MAR FROM FACILITY AND TALKING TO PTS [employer] INTERN FROM [facility]
[2022-09-28 14:44] LABS: Basophils # 0.1 10^3/uL (0.0-0.1); Basophils % 0.5 %; Eosinophils # 0.1 10^3/uL (0.0-0.8); Eosinophils % 1.3 %; Hematocrit 39.9 % (37.0-47.0); Hemoglobin 12.9 g/dL (11.5-15.3); Lymphocytes # 1.7 10^3/uL (0.8-4.8); Mean Corpuscular HGB Conc 32.3 g/dL (30.0-36.0); Mean Corpuscular Volume 95.9 fl (81-99); Mean Platelet Volume 10.7 fL (7.4-10.4); Monocytes # 0.6 10^3/uL (0.2-0.9); Monocytes % 6.6 %; Neutrophils # 6.71 10^3/uL (1.8-7.7); Neutrophils % 73.3 %; Nucleated Red Blood Cells % 0 %; Platelet Count 218 10^3/cmm (130-400); Red Blood Count 4.16 10^6/uL (4.1-5.3); Red Cell Distribution Width 13.2 % (12.1-15.1); White Blood Count 9.2 10^3/uL (4.0-10.0)
[2022-09-28 15:05] LABS: Alanine Aminotransferase 18 U/L (0-33); Alkaline Phosphatase 67 U/L (35-105); Anion Gap 14.1 (5-19); Aspartate Amino Transferase 15 U/L (0-32); Blood Urea Nitrogen 20 mg/dL (6-20); Calcium 9.2 mg/dL (8.5-10.5); Carbon Dioxide 25 mmol/L (22-29); Chloride 105 mmol/L (98-107); Creatinine Clr Calc Pharmacy 85.3719; Globulin 2.7 g/dL (1.3-4.6); Glomerular Filtration Rate 75.9 mL/min (90-130); Glucose 104 mg/dL (65-115); Osmolality Calculated 293 mOsm/kg (285-295); Potassium 4.1 mmol/L (3.5-5.1); Sodium 140 mmol/L (136-145); Total Bilirubin 0.2 mg/dL (0.15-1.2); Total Protein 6.7 g/dL (6.6-8.7)
[2022-09-28 15:59] LABS: Urine Color Light yellow (Yellow)
[2022-09-28 16:00] LABS: Add Urine Microscopic? YES; Bacteria Urine 3+ /hpf; Bilirubin Urine Neg (Negative); Blood Urine Neg (Negative); Glucose Urine UA Norm (Normal); Ketones Urine Negative (Negative); Leukocyte Esterase Urine Negative (Negative); Nitrate Urine Negative (Negative); Protein Urine Neg (Negative); RBC Urine 0-4 /hpf (0-2); Squamous Epithelial Cell Urine 0-4 /hpf (0-5); Sulfosalicylic Acid Urine Negative (Negative); Urine Appearance Hazy (CLEAR); Urobilinogen Urine Norm (Negative); pH Urine 6.5 (5-7)
[2022-09-28 16:01] LABS: Add Urine Culture? Yes; Amorphous Sediment Urine 2+ /hpf
== END 2022-09-28 16:39 | disposition home or self-care (01) ==
PROVIDERS: Emergency Provider Emergency Medicine; PCP Nurse Practitioner Family
DX: R56.9 Unspecified convulsions (principal); I12.9 Hypertensive chronic kidney disease with stage 1 through stage 4 chronic kidney disease, or unspecified chronic kidney disease; N18.9 Chronic kidney disease, unspecified
CPT/HCPCS: 36415; 80053; 81001; 85025; 87086; 99283

== ENCOUNTER → 2022-11-04 11:53 | Outpatient (BNVA) | payer MEDICARE, MEDICAID, SELFPAY | PROVIDERS: PCP Nurse Practitioner Family; Visit Provider Nurse Practitioner Family | DX: N39.0 Urinary tract infection, site not specified (principal) | CPT/HCPCS: 81000 ==

== ENCOUNTER 2022-12-01 17:17 | Emergency (ER) | payer MEDICARE, MEDICAID, SELFPAY ==
[2022-12-01 17:34] VITALS: BP 142/98; PULSE 86; RESP 18; TEMP 36.8; O2SAT 98; BMI 29.7
--- NOTE | 2022-12-01 19:39 | W.ED.PSYCHS ---
Documented by User: Cody Martínez DO 12/01/22 20:25 HPI - Psych General: Chief Complaint: Psychiatric Symptoms Stated Complaint: PSYCH ISSUES/ KNEE PAIN Time Seen by Provider: 12/01/22 17:36 History of Present Illness: Patient with a history of moderate MR, depression, PTSD who follows with Dr. Perez presents the emergency department by EMS from her [facility] due to escalating aggressive and destructive behavior for the last 2 weeks. History from the patient is severely limited, however the caregiver states that the patient has become increasingly aggressive over the last 2 weeks. She states that the patient cut off her hair with scissors, and tore apart the house. She states that the patient has eloped twice, and repeatedly states that she wants to hurt someone but refuses to say who. She also states that she wants to hurt herself, but refuses to elaborate on a plan. The patient has an extensive history of multiple brief inpatient psychiatric admissions, however per the caregiver per Dr. Perez he is concerned that she needs a longer inpatient psychiatric stay due to her behavior deteriorating. Patient does state that she wants to hurt someone but refuses to elaborate on who or how. She also endorses wanting to hurt herself but refuses to elaborate as well. She denies any medical complaints with the exception of a splinter on the bottom of her right foot. History is limited due to patient's MR. Review of Systems General: Reports: ROS unobtainable due to mental status [facility] ED PFSH: Medical History Bilateral renal cysts CKD (chronic kidney disease) Depression, major, recurrent, in complete remission Drug induced akathisia Hypertension Moderate intellectual disabilities Psychiatric care PTTD (posterior tibial tendon dysfunction) Social History Smoking and tobacco status: never smoked Second hand smoke exposure: No Alcohol intake: never Lives independently: No Housing: Other Details: [facility]p Marital status: Single Current occupational status: disabled Current gender identity: Female Physical Exam Const: COMMON NORMALS: no acute distress, alert and well nourished EXAM LIMITATIONS: behavioral limitations GENERAL APPEARANCE: disheveled and other (Unkempt) ORIENTATION/CONSCIOUSNESS: Yes awake HENMT: COMMON NORMALS: atraumatic, hearing grossly normal bilaterally, external ears normal and Normal external nose present HEAD & SCALP: atraumatic and other (Syndromic facies) FACE & SINUS: normal facial exam NOSE: Normal external nose present EXTERNAL EAR: Yes external ears normal MOUTH: Normal oral and palatal mucosa present THROAT: posterior oropharynx normal Eye: COMMON NORMALS: Equal, round and reactive pupils present and EOMs intact bilaterally PUPIL: Yes Equal, round and reactive pupils present Neck/C-Spine: COMMON NORMALS: supple GENERAL: Yes normal visual inspection CERVICAL SPINE: No Cervical spine tenderness and No step off deformity Chest: COMMONS NORMALS: normal inspection of the chest Resp: COMMON NORMALS: normal respiratory effort, No retractions, No use of accessory muscles and clear to auscultation bilaterally AUSCULTATION: clear to auscultation bilaterally Cardio: COMMON NORMALS: regular rate and Peripheral pulses 2+ throughout RATE: regular rate PERIPHERAL PULSES: Peripheral pulses 2+ throughout GI: COMMON NORMALS: Normal to inspection, nondistended, normoactive bowel sounds present, Soft to palpation and non-tender PALPATION: Yes Soft to palpation : COMMON NORMALS: Yes no CVA tenderness BLADDER/KIDNEY EXAM: Yes no CVA tenderness Back/Pelvis: COMMON NORMALS: no CVA tenderness and thoracic and lumbar spine normal to inspection THORACIC SPINE/UPPER BACK: Yes normal to inspection LUMBAR SPINE/LOWER BACK: Yes normal to inspection Extremity: COMMON NORMALS: normal to inspection and full ROM GENERAL: No clubbing and No cyanosis Neuro: COMMON NORMALS: moves all extremities, no focal motor deficits and no sensory deficits noted SENSORIUM/ORIENTATION: Yes alert Psych: COMMON NORMALS: activity/motor behavior normal; negative for cooperative and negative for normal affect APPEARANCE: Yes unkempt, Yes disheveled and Yes bizarre ATTITUDE: Yes Withdrawn affect present, Yes uncooperative, Yes evasive and Yes Guarded attititude/behavior present ACTIVITY/MOTOR BEHAVIOR: No appropriate eye contact and Yes Avoids eye contact (attititude/behavior) SPEECH: Yes minimal and Yes soft MOOD & AFFECT: Yes depressed mood and Yes Flat affect present THOUGHT PROCESS: Impoverished thought process present THOUGHT CONTENT: Yes Suicidality present and Yes Homicidality present Skin: COMMON NORMALS: no rashes or lesions noted GENERAL SKIN EXAM: no rashes or lesions noted TRAUMA: other (Superficial splinter noted to the plantar surface of the right foot) Course Consultations: Consultation #1: Spoke with psychiatry Dr. Henry who will talk to Dr. Barahona and call me back about admitting the patient. Request that I confirm with the patient's caregiver that she has been admitted to our facility in the past. Time: 19:30 Consultation #2: Spoke with caregiver who stated that the patient has always been admitted to our facility, she request that I call her back with the final plan. Time: 19:35 Consultation #3: Call back from dr. Henry who states that patient is not a good fit for our facility, request that we attempt to find a facility that is better equipped to handle a patient with moderate MR, if we are unable to find placement within a certain number of hours he will come down and further evaluate the patient. Time: 20:25 Vital Signs: Vital signs: Vital Signs Temperature 98.2 F 12/01/22 17:34 Pulse Rate 87 12/02/22 06:50 Respiratory Rate 16 12/02/22 06:50 Blood Pressure 142/98 12/01/22 17:34 Pulse Oximetry 100 12/02/22 06:50 Oxygen Delivery Me thod Room Air 12/02/22 06:50 MDM - Psych Medical Decision Making This patient is likely experiencing acute exacerbation of her chronic mental health issues, given report that Dr. Perez as well as the patient's guardian have recommended inpatient psychiatric admission, will plan for admission. Screening psychiatric laboratory studies have been obtained, will consult psychiatry on-call for admission. Lab Data 12/01/22 19:59 12/01/22 19:59 Laboratory Results WBC 9.0 10^3/uL (4.0-10.0) 12/01/22 19:59 RBC 4.25 10^6/uL (4.1-5.3) 12/01/22 19:59 Hgb 13.2 g/dL (11.5-15.3) 12/01/22 19:59 Hct 40.8 % (37.0-47.0) 12/01/22 19:59 MCV 96.0 fl (81-99) 12/01/22 19:59 MCH 31.1 pg (28.0-34.0) 12/01/22 19:59 MCHC 32.4 g/dL (30.0-36.0) 12/01/22 19:59 RDW 13.2 % (12.1-15.1) 12/01/22 19:59 Plt Count 213 10^3/cmm (130-400) 12/01/22 19:59 MPV 11.1 fL (7.4-10.4) H 12/01/22 19:59 Neut % (Auto) 71.5 % 12/01/22 19:59 Lymph % (Auto) 21.2 % 12/01/22 19:59 [place] % (Auto) 5.8 % 12/01/22 19:59 Eos % (Auto) 0.6 % 12/01/22 19:59 Baso % (Auto) 0.6 % 12/01/22 19:59 Neut # (Auto) 6.44 10^3/uL (1.8-7.7) 12/01/22 19:59 Lymph # (Auto) 1.9 10^3/uL (0.8-4.8) 12/01/22 19:59 [place] # (Auto) 0.5 10^3/uL (0.2-0.9) 12/01/22 19:59 Eos # (Auto) 0.1 10^3/uL (0.0-0.8) 12/01/22 19:59 Baso # (Auto) 0.1 10^3/uL (0.0-0.1) 12/01/22 19:59 Nucleated RBC % (auto) 0 % 12/01/22 19:59 Nucleated RBCs # 0.0 /100WBC 12/01/22 19:59 Sodium 139 mmol/L (136-145) 12/01/22 19:59 Potassium 4.1 mmol/L (3.5-5.1) 12/01/22 19:59 Chloride 104 mmol/L (98-107) 12/01/22 19:59 Carbon Dioxide 25 mmol/L (22-29) 12/01/22 19:59 Anion Gap 14.1 (5-19) 12/01/22 19:59 BUN 14 mg/dL (6-20) 12/01/22 19:59 Creatinine 1.0 mg/dL (0.5-0.9) H 12/01/22 19:59 GFR Calculation 58.7 mL/min (90-130) L 12/01/22 19:59 Glucose 91 mg/dL (65-115) 12/01/22 19:59 Calculated Osmolality 288 mOsm/kg (285-295) 12/01/22 19:59 Calcium 8.7 mg/dL (8.5-10.5) 12/01/22 19:59 Total Bilirubin 0.2 mg/dL (0.15-1.2) 12/01/22 19:59 AST 31 U/L (0-32) 12/01/22 19:59 ALT 50 U/L (0-33) H 12/01/22 19:59 Alkaline Phosphatase 66 U/L (35-105) 12/01/22 19:59 Total Protein 7.3 g/dL (6.6-8.7) 12/01/22 19:59 Albumin 4.3 g/dL (3.5-5.2) 12/01/22 19:59 Globulin 3.0 g/dL (1.3-4.6) 12/01/22 19:59 HCG, Qual Negative (Negative) 12/01/22 21:38 Urine Color Yellow (Yellow) 12/01/22 21:38 Urine Appearance Clear (CLEAR) 12/01/22 21:38 Urine pH 7 (5-7) 12/01/22 21:38 Ur Specific [place] 1.005 (1.005-1.030) 12/01/22 21:38 Urine Protein Neg (Negative) 12/01/22 21:38 Urine Glucose (UA) Norm (Normal) 12/01/22 21:38 Urine Ketones 1+ (Negative) H 12/01/22 21:38 Urine Blood Neg (Negative) 12/01/22 21:38 Urine Nitrate Negative (Negative) 12/01/22 21:38 Urine Bilirubin Neg (Negative) 12/01/22 21:38 Urine Urobilinogen Norm mg/dL (Negative) 12/01/22 21:38 Ur Leukocyte Esterase Negative (Negative) 12/01/22 21:38 Salicylates < 0.3 mg/dL (3-10) L 12/01/22 19:59 Urine Opiates Screen Negative ng/mL (Negative) 12/01/22 21:38 Acetaminophen < 5.0 ug/mL (10-30) L 12/01/22 19:59 Ur Barbiturates Screen Negative ng/mL (Negative) 12/01/22 21:38 Ur Phencyclidine Scrn Negative ng/mL (Negative) 12/01/22 21:38 Ur Amphetamines Screen Negative ng/mL (Negative) 12/01/22 21:38 U Benzodiazepines Scrn Positive ng/mL (Negative) H 12/01/22 21:38 Urine Cocaine Screen Negative ng/mL (Negative) 12/01/22 21:38 U Marijuana (THC) Screen Negative ng/mL (Negative) 12/01/22 21:38 Ethyl Alcohol < 10 mg/dL (0-10) 12/01/22 19:59 SARS-CoV-2 Ag (Rapid) negative (Negative) 12/01/22 20:51 Discharge Plan Discharge Patient Disposition: Home Clinical Impression: Outbursts of explosive behavior, Post traumatic stress disorder Condition: Stable Prescriptions: New prazosin 2 mg capsule 2 mg PO QPM Qty: 30 0RF No Action Mylanta Maximum Strength 400-400-40 mg/5 mL suspension 30 ml PO TID PRN (Reason: indigestion) 30 Days Qty: 355 11RF levetiracetam 500 mg tablet 500 mg PO BID calcium carbonate-vitamin D3 600 mg-5 mcg (200 unit) tablet 1 tab PO DAILY@0800 Qty: 100 4RF Fish Oil Concentrate 1,000 mg capsule 1,000 mg PO BID@0800,1900 Qty: 180 4RF L norgest/e.estradiol-e.estrad [Daysee] 0.15 mg-30 mcg (84)/10 mcg (7) tablets,dose pack,3 month 1 tab PO DAILY Qty: 182 3RF Rx Instructions: skip placebo week sertraline [Zoloft] 100 mg tablet 200 mg PO DAILY@1900 Qty: 60 11RF cyanocobalamin (vitamin B-12) 1,000 mcg capsule 1,000 mcg PO DAILY Qty: 90 1RF acetaminophen [Tylenol] 325 mg tablet 650 mg PO Q6H PRN (Reason: fever of 100.4F or pain) 30 Days Qty: 120 11RF Rx Instructions: not to exceed 8 tabs in 24 hours melatonin 10 mg tablet extended release 10 mg PO .qhs Qty: 30 11RF Dimetapp DM Cold-Cough (PE) 1-2.5-5 mg/5 mL solution 20 ml PO Q4H PRN (Reason: cough) 30 Days Qty: 118 5RF metoprolol tartrate 25 mg tablet See Rx Instructions .ROUTE .COMPLEX Qty: 180 3RF Dose Instruction: TAKE ONE TABLET BY MOUTH TWICE DAILY AT 8:00AM AND AT 7:00PM - CALL CLINIC WITH BLOOD PRESSURE GREATER THAN 160 / 100 OR LOWER THAN 100/60 Rx Instructions: TAKE ONE TABLET BY MOUTH TWICE DAILY AT 8:00AM AND AT 7:00PM - CALL CLINIC WITH BLOOD PRESSURE GREATER THAN 160 / 100 OR LOWER THAN 100/60 magnesium hydroxide [Milk of Magnesia] 400 mg/5 mL suspension See Rx Instructions .ROUTE .COMPLEX Qty: 3000 5RF Dose Instruction: TAKE 2 TABLESPOONFULS ( 30 ML'S ) BY MOUTH TWICE DAILY NEEDED FOR INDIGESTION Rx Instructions: TAKE 2 TABLESPOONFULS ( 30 ML'S ) BY MOUTH TWICE DAILY NEEDED FOR INDIGESTION polyethylene glycol 3350 [Miralax] 17 gram/dose powder 17 g PO DAILY PRN (Reason: constipation) 30 Days Qty: 119 5RF calcium polycarbophil [Fiber-Lax] 625 mg tablet See Rx Instructions .ROUTE .COMPLEX Qty: 30 4RF Dose Instruction: TAKE ONE TABLET BY MOUTH EVERY DAY Rx Instructions: TAKE ONE TABLET BY MOUTH EVERY DAY levocetirizine 5 mg tablet See Rx Instructions .ROUTE .COMPLEX Qty: 30 4RF Dose Instruction: TAKE ONE TABLET BY MOUTH DAILY Rx Instructions: TAKE ONE TABLET BY MOUTH DAILY docusate sodium 100 mg capsule See Rx Instructions .ROUTE .COMPLEX Qty: 180 4RF Dose Instruction: TAKE ONE CAPSULE BY MOUTH TWICE DAILY AT 8:00AM AND 7:00PM FOR CONSTIPATION Rx Instructions: TAKE ONE CAPSULE BY MOUTH TWICE DAILY AT 8:00AM AND 7:00PM FOR CONSTIPATION olopatadine 0.2 % drops 1 drp ophthalmic (eye) DAILY@1900 quetiapine 300 mg tablet 300 mg PO QPM lorazepam 2 mg tablet 2 mg PO BID mirtazapine 45 mg tablet 45 mg PO QPM fluticasone propionate 50 mcg/actuation spray,suspension 2 spray intranasal DAILY Discharge Orders: Discharge ED (Routine); Ordered 12/02/22 Ordered By: David Skelton Referrals: Petty Brewer, [employer] [Primary Care Provider] - Discharge Diet: Usual diet Discharge Activity: Resume usual activity Patient Instructions: Opioid Safety, Pain Management Activity Restrictions/Additional Instructions: You are seen today after a behavioral outburst. Psychiatry seen and evaluated you they are recommending you start on prazosin 2 mg at at bedtime and follow-up on Wednesday with Dr. Perez as scheduled. You can return to the emergency room if further problems. Sign Out Sign Out Data: Patient Sign Out occurred on 12/02/22 at 06:01. Patient's care was discussed, and care was transferred from to David Skelton DO. Coding Level of Care Code ED Coremaker Machine for Chg Fwd Documented by User: David Skelton DO 12/02/22 09:21 HPI - Psych General: Chief Complaint: Psychiatric Symptoms Stated Complaint: PSYCH ISSUES/ KNEE PAIN Time Seen by Provider: 12/01/22 17:36 PFSH ED PFSH: Medical History Bilateral renal cysts CKD (chronic kidney disease) Depression, major, recurrent, in complete remission Drug induced akathisia Hypertension Moderate intellectual disabilities Psychiatric care PTTD (posterior tibial tendon dysfunction) Social History Smoking and tobacco status: never smoked Second hand smoke exposure: No Alcohol intake: never Lives independently: No Housing: Other Details: [facility] Marital status: Single Current occupational status: disabled Current gender identity: Female Course Vital Signs: Vital signs: Vital Signs Temperature 98.2 F 12/01/22 17:34 Pulse Rate 87 12/02/22 06:50 Respiratory Rate 16 12/02/22 06:50 Blood Pressure 142/98 12/01/22 17:34 Pulse Oximetry 100 12/02/22 06:50 Oxygen Delivery Me thod Room Air 12/02/22 06:50 MDM - Psych Medical Decision Making This patient is likely experiencing acute exacerbation of her chronic mental health issues, given report that Dr. Perez as well as the patient's guardian have recommended inpatient psychiatric admission, will plan for admission. Screening psychiatric laboratory studies have been obtained, will consult psychiatry on-call for admission. Discussed with Dr. Hendrix. He reviewed the chart and talked to Dr. Perez. Patient has been well behaved since she arrived. No further outburst. He feels that she has more PTSD. He recommends prazosin 2 at at bedtime she has a follow-up upcoming with Dr. Perez. They concur that she can be discharged home at this time with the prazosin and that he follow-up at [facility] [place] return if she has further problems. Medical Records I reviewed the patient's medical records. Lab Data I reviewed the patient's lab results. 12/01/22 19:59 12/01/22 19:59 Laboratory Results WBC 9.0 10^3/uL (4.0-10.0) 12/01/22 19:59 RBC 4.25 10^6/uL (4.1-5.3) 12/01/22 19:59 Hgb 13.2 g/dL (11.5-15.3) 12/01/22 19:59 Hct 40.8 % (37.0-47.0) 12/01/22 19:59 MCV 96.0 fl (81-99) 12/01/22 19:59 MCH 31.1 pg (28.0-34.0) 12/01/22 19:59 MCHC 32.4 g/dL (30.0-36.0) 12/01/22 19:59 RDW 13.2 % (12.1-15.1) 12/01/22 19:59 Plt Count 213 10^3/cmm (130-400) 12/01/22 19:59 MPV 11.1 fL (7.4-10.4) H 12/01/22 19:59 Neut % (Auto) 71.5 % 12/01/22 19:59 Lymph % (Auto) 21.2 % 12/01/22 19:59 [place] % (Auto) 5.8 % 12/01/22 19:59 Eos % (Auto) 0.6 % 12/01/22 19:59 Baso % (Auto) 0.6 % 12/01/22 19:59 Neut # (Auto) 6.44 10^3/uL (1.8-7.7) 12/01/22 19:59 Lymph # (Auto) 1.9 10^3/uL (0.8-4.8) 12/01/22 19:59 [place] # (Auto) 0.5 10^3/uL (0.2-0.9) 12/01/22 19:59 Eos # (Auto) 0.1 10^3/uL (0.0-0.8) 12/01/22 19:59 Baso # (Auto) 0.1 10^3/uL (0.0-0.1) 12/01/22 19:59 Nucleated RBC % (auto) 0 % 12/01/22 19:59 Nucleated RBCs # 0.0 /100WBC 12/01/22 19:59 Sodium 139 mmol/L (136-145) 12/01/22 19:59 Potassium 4.1 mmol/L (3.5-5.1) 12/01/22 19:59 Chloride 104 mmol/L (98-107) 12/01/22 19:59 Carbon Dioxide 25 mmol/L (22-29) 12/01/22 19:59 Anion Gap 14.1 (5-19) 12/01/22 19:59 BUN 14 mg/dL (6-20) 12/01/22 19:59 Creatinine 1.0 mg/dL (0.5-0.9) H 12/01/22 19:59 GFR Calculation 58.7 mL/min (90-130) L 12/01/22 19:59 Glucose 91 mg/dL (65-115) 12/01/22 19:59 Calculated Osmolality 288 mOsm/kg (285-295) 12/01/22 19:59 Calcium 8.7 mg/dL (8.5-10.5) 12/01/22 19:59 Total Bilirubin 0.2 mg/dL (0.15-1.2) 12/01/22 19:59 AST 31 U/L (0-32) 12/01/22 19:59 ALT 50 U/L (0-33) H 12/01/22 19:59 Alkaline Phosphatase 66 U/L (35-105) 12/01/22 19:59 Total Protein 7.3 g/dL (6.6-8.7) 12/01/22 19:59 Albumin 4.3 g/dL (3.5-5.2) 12/01/22 19:59 Globulin 3.0 g/dL (1.3-4.6) 12/01/22 19:59 HCG, Qual Negative (Negative) 12/01/22 21:38 Urine Color Yellow (Yellow) 12/01/22 21:38 Urine Appearance Clear (CLEAR) 12/01/22 21:38 Urine pH 7 (5-7) 12/01/22 21:38 Ur Specific [place] 1.005 (1.005-1.030) 12/01/22 21:38 Urine Protein Neg (Negative) 12/01/22 21:38 Urine Glucose (UA) Norm (Normal) 12/01/22 21:38 Urine Ketones 1+ (Negative) H 12/01/22 21:38 Urine Blood Neg (Negative) 12/01/22 21:38 Urine Nitrate Negative (Negative) 12/01/22 21:38 Urine Bilirubin Neg (Negative) 12/01/22 21:38 Urine Urobilinogen Norm mg/dL (Negative) 12/01/22 21:38 Ur Leukocyte Esterase Negative (Negative) 12/01/22 21:38 Salicylates < 0.3 mg/dL (3-10) L 12/01/22 19:59 Urine Opiates Screen Negative ng/mL (Negative) 12/01/22 21:38 Acetaminophen < 5.0 ug/mL (10-30) L 12/01/22 19:59 Ur Barbiturates Screen Negative ng/mL (Negative) 12/01/22 21:38 Ur Phencyclidine Scrn Negative ng/mL (Negative) 12/01/22 21:38 Ur Amphetamines Screen Negative ng/mL (Negative) 12/01/22 21:38 U Benzodiazepines Scrn Positive ng/mL (Negative) H 12/01/22 21:38 Urine Cocaine Screen Negative ng/mL (Negative) 12/01/22 21:38 U Marijuana (THC) Screen Negative ng/mL (Negative) 12/01/22 21:38 Ethyl Alcohol < 10 mg/dL (0-10) 12/01/22 19:59 SARS-CoV-2 Ag (Rapid) negative (Negative) 12/01/22 20:51 Discharge Plan Discharge Patient Disposition: Home Clinical Impression: Outbursts of explosive behavior, Post traumatic stress disorder Condition: Stable Prescriptions: New prazosin 2 mg capsule 2 mg PO QPM Qty: 30 0RF No Action Mylanta Maximum Strength 400-400-40 mg/5 mL suspension 30 ml PO TID PRN (Reason: indigestion) 30 Days Qty: 355 11RF levetiracetam 500 mg tablet 500 mg PO BID calcium carbonate-vitamin D3 600 mg-5 mcg (200 unit) tablet 1 tab PO DAILY@0800 Qty: 100 4RF Fish Oil Concentrate 1,000 mg capsule 1,000 mg PO BID@0800,1900 Qty: 180 4RF L norgest/e.estradiol-e.estrad [Daysee] 0.15 mg-30 mcg (84)/10 mcg (7) tablets,dose pack,3 month 1 tab PO DAILY Qty: 182 3RF Rx Instructions: skip placebo week sertraline [Zoloft] 100 mg tablet 200 mg PO DAILY@1900 Qty: 60 11RF cyanocobalamin (vitamin B-12) 1,000 mcg capsule 1,000 mcg PO DAILY Qty: 90 1RF acetaminophen [Tylenol] 325 mg tablet 650 mg PO Q6H PRN (Reason: fever of 100.4F or pain) 30 Days Qty: 120 11RF Rx Instructions: not to exceed 8 tabs in 24 hours melatonin 10 mg tablet extended release 10 mg PO .qhs Qty: 30 11RF Dimetapp DM Cold-Cough (PE) 1-2.5-5 mg/5 mL solution 20 ml PO Q4H PRN (Reason: cough) 30 Days Qty: 118 5RF metoprolol tartrate 25 mg tablet See Rx Instructions .ROUTE .COMPLEX Qty: 180 3RF Dose Instruction: TAKE ONE TABLET BY MOUTH TWICE DAILY AT 8:00AM AND AT 7:00PM - CALL CLINIC WITH BLOOD PRESSURE GREATER THAN 160 / 100 OR LOWER THAN 100/60 Rx Instructions: TAKE ONE TABLET BY MOUTH TWICE DAILY AT 8:00AM AND AT 7:00PM - CALL CLINIC WITH BLOOD PRESSURE GREATER THAN 160 / 100 OR LOWER THAN 100/60 magnesium hydroxide [Milk of Magnesia] 400 mg/5 mL suspension See Rx Instructions .ROUTE .COMPLEX Qty: 3000 5RF Dose Instruction: TAKE 2 TABLESPOONFULS ( 30 ML'S ) BY MOUTH TWICE DAILY NEEDED FOR INDIGESTION Rx Instructions: TAKE 2 TABLESPOONFULS ( 30 ML'S ) BY MOUTH TWICE DAILY NEEDED FOR INDIGESTION polyethylene glycol 3350 [Miralax] 17 gram/dose powder 17 g PO DAILY PRN (Reason: constipation) 30 Days Qty: 119 5RF calcium polycarbophil [Fiber-Lax] 625 mg tablet See Rx Instructions .ROUTE .COMPLEX Qty: 30 4RF Dose Instruction: TAKE ONE TABLET BY MOUTH EVERY DAY Rx Instructions: TAKE ONE TABLET BY MOUTH EVERY DAY levocetirizine 5 mg tablet See Rx Instructions .ROUTE .COMPLEX Qty: 30 4RF Dose Instruction: TAKE ONE TABLET BY MOUTH DAILY Rx Instructions: TAKE ONE TABLET BY MOUTH DAILY docusate sodium 100 mg capsule See Rx Instructions .ROUTE .COMPLEX Qty: 180 4RF Dose Instruction: TAKE ONE CAPSULE BY MOUTH TWICE DAILY AT 8:00AM AND 7:00PM FOR CONSTIPATION Rx Instructions: TAKE ONE CAPSULE BY MOUTH TWICE DAILY AT 8:00AM AND 7:00PM FOR CONSTIPATION olopatadine 0.2 % drops 1 drp ophthalmic (eye) DAILY@1900 quetiapine 300 mg tablet 300 mg PO QPM lorazepam 2 mg tablet 2 mg PO BID mirtazapine 45 mg tablet 45 mg PO QPM fluticasone propionate 50 mcg/actuation spray,suspension 2 spray intranasal DAILY Discharge Orders: Discharge ED (Routine); Ordered 12/02/22 Ordered By: David Skelton Referrals: Petty Brewer FNP [Primary Care Provider] - Discharge Diet: Usual diet Discharge Activity: Resume usual activity Patient Instructions: Opioid Safety, Pain Management Activity Restrictions/Additional Instructions: You are seen today after a behavioral outburst. Psychiatry seen and evaluated you they are recommending you start on prazosin 2 mg at at bedtime and follow-up on Wednesday with Dr. Perez as scheduled. You can return to the emergency room if further problems. Sign Out Sign Out Data: Patient Sign Out occurred on 12/02/22 at 06:01. Patient's care was discussed, and care was transferred from to David Skelton DO. Coding Level of Care Code ED Coremaker Machine for Elder Luna
[2022-12-01 20:11] LABS: Basophils # 0.1 10^3/uL (0.0-0.1); Basophils % 0.6 %; Eosinophils # 0.1 10^3/uL (0.0-0.8); Eosinophils % 0.6 %; Hematocrit 40.8 % (37.0-47.0); Hemoglobin 13.2 g/dL (11.5-15.3); Lymphocytes # 1.9 10^3/uL (0.8-4.8); Lymphocytes % 21.2 %; Mean Corpuscular HGB Conc 32.4 g/dL (30.0-36.0); Mean Corpuscular Hemoglobin 31.1 pg (28.0-34.0); Mean Platelet Volume 11.1 fL (7.4-10.4); Monocytes # 0.5 10^3/uL (0.2-0.9); Monocytes % 5.8 %; Neutrophils # 6.44 10^3/uL (1.8-7.7); Neutrophils % 71.5 %; Nucleated Red Blood Cells % 0 %; Platelet Count 213 10^3/cmm (130-400); Red Blood Count 4.25 10^6/uL (4.1-5.3); Red Cell Distribution Width 13.2 % (12.1-15.1)
[2022-12-01 20:25] LABS: Alanine Aminotransferase 50 U/L (0-33); Albumin Level 4.3 g/dL (3.5-5.2); Alkaline Phosphatase 66 U/L (35-105); Anion Gap 14.1 (5-19); Aspartate Amino Transferase 31 U/L (0-32); Blood Urea Nitrogen 14 mg/dL (6-20); Calcium 8.7 mg/dL (8.5-10.5); Carbon Dioxide 25 mmol/L (22-29); Chloride 104 mmol/L (98-107); Glomerular Filtration Rate 58.7 mL/min (90-130); Glucose 91 mg/dL (65-115); Osmolality Calculated 288 mOsm/kg (285-295); Potassium 4.1 mmol/L (3.5-5.1); Sodium 139 mmol/L (136-145); Total Bilirubin 0.2 mg/dL (0.15-1.2); Total Protein 7.3 g/dL (6.6-8.7)
[2022-12-01 20:26] LABS: Acetaminophen < 5.0 ug/mL (10-30); Alcohol Level < 10 mg/dL (0-10); Salicylate < 0.3 mg/dL (3-10)
[2022-12-01 21:19] LABS: SARS Covid-2 Antigen negative (Negative)
[2022-12-01 21:52] LABS: HCG Qualitative Urine. Negative (Negative)
[2022-12-01 22:00] VITALS: PULSE 84; RESP 16; O2SAT 98
[2022-12-01 22:03] LABS: Add Urine Microscopic? NO; Charge for UA Resulting for Rev
[2022-12-01 22:11] LABS: Bilirubin Urine Neg (Negative); Blood Urine Neg (Negative); Glucose Urine UA Norm (Normal); Ketones Urine 1+ (Negative); Leukocyte Esterase Urine Negative (Negative); Nitrate Urine Negative (Negative); Protein Urine Neg (Negative); Specific Gravity, Urine 1.005 (1.005-1.030); Urine Appearance Clear (CLEAR); Urine Color Yellow (Yellow); Urobilinogen Urine Norm (Negative); pH Urine 7 (5-7)
[2022-12-01 22:19] LABS: Amphetamines Screen Urine Negative (Negative); Barbiturates Screen Urine Negative (Negative); Benzodiazepines Screen Urine Positive (Negative); Cocaine Screen Urine Negative (Negative); Opiate Screen Urine Negative (Negative); PCP Screen Urine Negative (Negative); THC Screen Urine Negative (Negative)
[2022-12-02 03:00] VITALS: PULSE 83; RESP 18; O2SAT 99
[2022-12-02] MEDS: acetaminophen 500 mg Tablet 1000 MG PO (03:31)
[2022-12-02] MEDS: lidocaine 2% viscous 15 ML, aluminum-mag hydrox-simethicon 30 ML, sucralfate oral liq 1 GM PO (06:30)
[2022-12-02] MEDS: ondansetron 2 mg/ML SDV 2 mL 4 MG IVP (06:48)
[2022-12-02 06:50] VITALS: PULSE 87; RESP 16; O2SAT 100
[2022-12-02] MEDS: LORazepam 2 mg Tablet PO (07:59)
[2022-12-02] MEDS: levETIRAcetam 500 mg Tablet PO (07:59)
[2022-12-02] MEDS: quetiapine 300 mg Tablet 150 MG PO (07:59)
[2022-12-02] MEDS: sertraline 100 mg Tablet 200 MG PO (08:00)
--- NOTE | 2022-12-02 09:03 | P.NPUCON_ITS ---
Providers/Reason for Consult Consulting Physican/Specialty*: Khanh Henry MD/Psychiatry Reason for Consult*: aggression/suicidal ideation. Primary Psychiatrist/Therapist: Rajesh CHANEY Primary Care Provider: NICK [facility] Psych Consult HPI History of Present Illness Catrina Whitney is a 52 year old female followed by Dr. Mena with a history of aggression and irritability arrived to EMS from half-way with reports of increased aggression and destruction of property in the half-way over the last two weeks. She had reportedly eloped 2x from the location and had made statements to ER staff that she wanted to hurt herself and someone else. The patient was evaluated after 10 hours of being in the Emergency department where she was evaluated by the medical underwriter. She had repeatedly stated that she did not have any thoughts of hurting herself or anyone else. She had reported that she was scared of seeing Corky again with reports that she was worried about having bad dreams. Patient reports that she has been seeing Corky wherever she goes. She reports that she sees him when she closes her eyes. She reports that she is sorry about being bad. Patient reported on interview that she needed to go home. She reported no thoughts of hurting herself and asked to return to her half-way. Relevant hx was reviewed including medical history and previous outpatient records of Dr. Mena. Med Hx: seizure disorder Meds: remeron 45mg at night, omega fa, seroquel 300qhs, zoloft 200mg in am, ativan 2mg bid Meds Home Medications and Allergies Home Medications Medication Instructions Recorded Confirmed Last Taken Type olopatadine 0.2 % eye drops 1 drp ophthalmic (eye) DAILY@1900 02/18/21 10/14/22 09/27/22 History L norgest/E estradiol-E estrad 1 tab PO DAILY #182 ea 12/08/21 10/14/22 09/28/22 Rx 0.15 mg-30 mcg (84)/10 mcg(7) tabs,3mos (Daysee) calcium carbonate 600 mg-vitamin 1 tab PO DAILY@0800 #100 tabs 12/08/21 10/14/22 09/28/22 Rx D3 5 mcg (200 unit) tablet omega-3 fatty acids 1,000 mg 1,000 mg PO BID@0800,1900 #180 caps 12/08/21 10/14/22 09/28/22 Rx capsule acetaminophen 325 mg tablet 650 mg PO Q6H PRN fever of 100.4F 12/26/21 10/14/22 Unknown Rx (Tylenol) or pain 30 days #120 tabs sertraline 100 mg tablet (Zoloft) 200 mg PO DAILY@1900 #60 tabs 06/10/22 10/14/22 09/27/22 Rx cyanocobalamin (vitamin B-12) 1,000 mcg PO DAILY #90 caps 06/19/22 10/14/22 09/28/22 Rx 1,000 mcg capsule aluminum-mag hydroxide-simethicone 30 ml PO TID PRN indigestion 30 07/17/22 10/14/22 Unknown Rx 400 mg-400 mg-40 mg/5 mL oral susp days #355 mL (Mylanta Maximum Strength) melatonin 10 mg tablet,extended 10 mg PO .qhs #30 tabs 08/14/22 10/14/22 09/27/22 Rx release oudfbmxpwrutsmf-xeyrfrmwkkuoj-QJ 1 20 ml PO Q4H PRN cough 30 days 08/18/22 10/14/22 Unknown Rx mg-2.5 mg-5 mg/5 mL oral solution #118 mL (Dimetapp DM Cold-Cough (PE)) metoprolol tartrate 25 mg tablet See Rx Instructions .Route 09/03/22 10/14/22 09/28/22 Rx .COMPLEX #180 tabs magnesium hydroxide 400 mg/5 mL See Rx Instructions .Route 09/17/22 10/14/22 Unknown Rx oral suspension (Milk of Magnesia) .COMPLEX #3,000 mL polyethylene glycol 3350 17 17 g PO DAILY PRN constipation 30 09/17/22 10/14/22 09/28/22 Rx gram/dose oral powder (Miralax) days #119 grams fluticasone propionate 50 2 spray intranasal DAILY 09/28/22 10/14/22 09/28/22 History mcg/actuation nasal spray,suspension lorazepam 2 mg tablet 2 mg PO BID 09/28/22 10/14/22 09/28/22 History mirtazapine 45 mg tablet 45 mg PO QPM 09/28/22 10/14/22 09/27/22 History quetiapine 300 mg tablet 300 mg PO QPM 09/28/22 10/14/22 09/27/22 History levetiracetam 500 mg tablet 500 mg PO BID 10/14/22 10/14/22 Unknown History calcium polycarbophil 625 mg See Rx Instructions .Route 10/27/22 Unknown Rx tablet (Fiber-Lax) .COMPLEX #30 tabs levocetirizine 5 mg tablet See Rx Instructions .Route 10/27/22 Unknown Rx .COMPLEX #30 tabs docusate sodium 100 mg capsule See Rx Instructions .Route 11/27/22 Unknown Rx .COMPLEX #180 caps prazosin 2 mg capsule 2 mg PO QPM #30 caps 12/02/22 Unknown Rx Allergies Allergy/AdvReac Type Severity Reaction Status Date / Time nystatin Allergy Unknown Verified 10/14/22 10:22 PFSH NPU 2 PFSH: Medical History Bilateral renal cysts CKD (chronic kidney disease) Depression, major, recurrent, in complete remission Drug induced akathisia Hypertension Moderate intellectual disabilities Psychiatric care PTTD (posterior tibial tendon dysfunction) Social History Smoking and tobacco status: never smoked Second hand smoke exposure: No Alcohol intake: never Substance/Drug Use: never Lives independently: No Housing: Other Details: half-way Marital status: Single Current occupational status: disabled Current gender identity: Female Mental Status Exam MSE Comments: Appeared younger than stated age. She was a poor historian. Speech was dysarthric, normal in volume and slow in rate. She was difficult to understand and appeared to recognize the medical underwriter of this note from having seen her earlier the day prior on video screen. She denied suicidal or homicidal ideation. She reported her mood as scared of Corky. Affect: tearful. She endorsed nightmares and flashbacks about a traumatic event involving corky. She was difficult to console and stated she needed a hug. She acknowledged having problems with anger. Her impulse control is poor. She did not appear to be responding to internal stimuli, She was perseverating about a mosquito that had bit her earlier but was able to calm herself and expressed desire to go home. Her intelligence was commensurate with moderate cognitive impairment. Vitals/I&O/Wt Last Vital Signs Temp 98.2 F 12/01/22 17:34 Pulse 87 12/02/22 06:50 Resp 16 12/02/22 06:50 BP 142/98 12/01/22 17:34 Pulse Ox 100 12/02/22 06:50 O2 Del Method Room Air 12/02/22 06:50 Weight last 48 hrs Weight 86.183 kg Data NPU 12/01/22 19:59 12/01/22 19:59 A&P Assessment and plan (1) Post traumatic stress disorder: (2) Outbursts of explosive behavior: (3) Depression, unspecified: Plan 52 year old white female with hx of impulse control disorder nos, depression and possibly ptsd. 1. Patient under guardianship, recommend return home, discussed with patients provider Dr. Mena about medication change with discharge back to the patient's half-way with follow up in [address] Mena, added Prazosin 2mg at night to target PTSD related nightmares. Attestations NPU Medical Necessity Statement*: no inpatient hospitalization necessary. Coding Level of Care Code Acute Code for g Fwd Diagnoses Post traumatic stress disorder F43.10 Outbursts of explosive behavior R46.89 Depression, unspecified F32.A
[2022-12-02 12:19] VITALS: PULSE 87; RESP 16; O2SAT 100
== END 2022-12-02 09:20 | disposition home or self-care (01) ==
PROVIDERS: Emergency Medicine; Emergency Provider Family Medicine; PCP Nurse Practitioner Family
DX: R46.89 Other symptoms and signs involving appearance and behavior (principal); F43.10 Post-traumatic stress disorder, unspecified; Z20.822 Contact with and (suspected) exposure to COVID-19; I12.9 Hypertensive chronic kidney disease with stage 1 through stage 4 chronic kidney disease, or unspecified chronic kidney disease; N18.9 Chronic kidney disease, unspecified
CPT/HCPCS: 36415; 80053; 80306; 80307; 81003; 81025; 85025; 87426; 96374; 99285; J2405

== ENCOUNTER → 2023-02-01 16:44 | Outpatient (BNVA) | payer MEDICARE, MEDICAID, SELFPAY | PROVIDERS: PCP Nurse Practitioner Family; Visit Provider Nurse Practitioner Family | DX: I10 Essential (primary) hypertension (principal) | CPT/HCPCS: 80053; 80061; 82607; 84443; 85025 ==

== ENCOUNTER 2023-03-01 16:32 | Emergency (ER) | payer MEDICARE, MEDICAID, SELFPAY ==
[2023-03-01 16:33] VITALS: BP 154/94; PULSE 88; RESP 18; TEMP 36.6; O2SAT 97; BMI 33.3
--- NOTE | 2023-03-01 16:39 | ECG_ITS ---
[facility] Test Date: 2023-03-01 Pat Name: Catrina Whitney Department: Room: Gender: Female Technical Planner: : 1970 Requested By: Daivd Carnes Order Number: [id number] Sony MD: Althea Henson M.D. Measurements Intervals [place] Rate: 84 P: 43 NH: 148 QRS: -6 QRSD: 89 T: 32 QT: 349 QTc: 414 Interpretive Statements SINUS RHYTHM MODERATE VOLTAGE CRITERIA FOR LVH, CONSIDER NORMAL VARIANT [MEETS CRITERIA IN ONE OF: R(aVL), S(V1), R(V5), R(V5/V6)+S(V1)] Compared to ECG 02/18/2021 15:36:11 Sinus arrhythmia no longer present Electronically Signed On 03-01-2023 21:39:18 CDT by Althea Henson M.D. [id number]
[2023-03-01 17:22] LABS: Basophils # 0.1 10^3/uL (0.0-0.1); Basophils % 0.8 %; Eosinophils # 0.3 10^3/uL (0.0-0.8); Hematocrit 38.7 % (37.0-47.0); Hemoglobin 12.2 g/dL (11.5-15.3); Lymphocytes # 2.3 10^3/uL (0.8-4.8); Mean Corpuscular HGB Conc 31.5 g/dL (30.0-36.0); Mean Corpuscular Hemoglobin 30.7 pg (28.0-34.0); Mean Corpuscular Volume 97.5 fl (81-99); Mean Platelet Volume 11.1 fL (7.4-10.4); Monocytes # 0.8 10^3/uL (0.2-0.9); Monocytes % 8.9 %; Neutrophils # 5.72 10^3/uL (1.8-7.7); Neutrophils % 61.2 %; Nucleated Red Blood Cells % 0 %; Platelet Count 203 10^3/cmm (130-400); Red Blood Count 3.97 10^6/uL (4.1-5.3); Red Cell Distribution Width 14.4 % (12.1-15.1); White Blood Count 9.3 10^3/uL (4.0-10.0)
[2023-03-01] MEDS: FUROsemide 10 mg/mL SDV 4mL 40 MG IVP (17:22)
[2023-03-01 17:24] VITALS: BP 171/92; PULSE 84; RESP 14; O2SAT 97
[2023-03-01 17:43] LABS: Blood Urea Nitrogen 23 mg/dL (6-20); Calcium 8.9 mg/dL (8.5-10.5); Carbon Dioxide 23 mmol/L (22-29); Chloride 102 mmol/L (98-107); Glomerular Filtration Rate 66.3 mL/min (90-130); Glucose 109 mg/dL (65-115); Osmolality Calculated 282 mOsm/kg (285-295); Sodium 134 mmol/L (136-145)
[2023-03-01 17:46] LABS: Anion Gap 13.4 (5-19); Potassium 4.4 mmol/L (3.5-5.1)
--- NOTE | 2023-03-01 17:46 | ED_ITS ---
HPI - Extremity Problem General: Chief complaint: Extremity Injury, Lower Stated complaint: foot swelling Time Seen by Provider: 03/01/23 16:33 Source: patient Mode of arrival: EMS History of Present Illness: 52-year-old female presents to the emergency room via EMS complaining of foot and leg swelling. She denies any pain in her legs. She has not had any chest pain or shortness of breath. She was seen a few days ago and [facility]. No injury no fall. MD Complaint: extremity pain Onset (ago): day(s) Location: left, right and lower extremity Relieving factors: nothing Exacerbating factors: nothing Associated symptoms: Deny arthralgias, chest pain, fever(s), myalgias, rash or short of breath Review of Systems Const: Denies: fever(s), chills, fatigue or malaise ENMT: Denies: throat pain, ear or mastoid pain, nasal discharge or nasal congestion Card: Reports: swelling of feet/ankles; Denies: chest pain, palpitations or irregular heart rhythm Resp: Denies: dyspnea, productive cough or non-productive cough GI: Denies: abdominal pain, nausea, vomiting, hematemesis, coffee ground emesis, diarrhea, constipation, bloating, hematochezia or melena : Denies: flank pain, difficulty voiding, dysuria, urinary frequency or urinary urgency Skin/Breast: Denies: rash PFSH ED PFSH: Medical History Bilateral renal cysts CKD (chronic kidney disease) Depression, major, recurrent, in complete remission Drug induced akathisia Hypertension Moderate intellectual disabilities Psychiatric care PTTD (posterior tibial tendon dysfunction) Social History Smoking and tobacco status: never smoked Second hand smoke exposure: No Alcohol intake: never Substance/Drug Use: never Lives independently: No Housing: Other Details: senior living Marital status: Single Current occupational status: disabled Current gender identity: Female Physical Exam Const: GENERAL APPEARANCE: cooperative and comfortable ORIENTATION/CONSCIOUSNESS: Yes awake, Yes oriented to person, Yes oriented to place and Yes oriented to time HENMT: COMMON NORMALS: normocephalic, atraumatic and hearing grossly normal bilaterally HEAD & SCALP: normocephalic and atraumatic Resp: COMMON NORMALS: normal respiratory effort, No retractions, No use of accessory muscles and clear to auscultation bilaterally AUSCULTATION: clear to auscultation bilaterally Cardio: COMMON NORMALS: regular rate, regular rhythm and No murmurs present (Cardio) RATE: regular rate RHYTHM: regular rhythm GI: COMMON NORMALS: Soft to palpation and No hepatosplenomegaly present AUSCULTATION: Yes normoactive bowel sounds PALPATION: Yes Soft to palpation, No Tenderness to palpation present (GI), No Guarding due to palpation present (GI) and Yes No hepatosplenomegaly present Extremity: COMMON NORMALS: normal to inspection, capillary refill normal and no calf tenderness OTHER: Trace edema and swelling lower extremities no indurated pitting edema. No evidence cellulitis negative Homans Neuro: SENSORIUM/ORIENTATION: Yes oriented to person, Yes oriented to place and Yes oriented to time Skin: COMMON NORMALS: no rashes or lesions noted GENERAL SKIN EXAM: no rashes or lesions noted Course Vital Signs: Vital signs: Vital Signs Temperature 97.9 F 03/01/23 16:33 Pulse Rate 84 03/01/23 17:24 Respiratory Rate 14 03/01/23 17:24 Blood Pressure 152/85 03/01/23 19:08 Pulse Oximetry 97 03/01/23 17:24 Oxygen Delivery Me thod Room Air 03/01/23 17:24 MDM - Extremity (Nontraumatic) Medical Decision Making Labs and imaging reviewed. Increase Lasix to 80 mg daily for the next 3 to 4 days. Follow-up with primary care doctor at the end of the week reevaluate BMP and need for continued aggressive diuresis. Medical Records I reviewed the patient's medical records. Lab Data I reviewed the patient's lab results. 03/01/23 16:52 03/01/23 16:52 Laboratory Results WBC 9.3 10^3/uL (4.0-10.0) 03/01/23 16:52 RBC 3.97 10^6/uL (4.1-5.3) L 03/01/23 16:52 Hgb 12.2 g/dL (11.5-15.3) 03/01/23 16:52 Hct 38.7 % (37.0-47.0) 03/01/23 16:52 MCV 97.5 fl (81-99) 03/01/23 16:52 MCH 30.7 pg (28.0-34.0) 03/01/23 16:52 MCHC 31.5 g/dL (30.0-36.0) 03/01/23 16:52 RDW 14.4 % (12.1-15.1) 03/01/23 16:52 Plt Count 203 10^3/cmm (130-400) 03/01/23 16:52 MPV 11.1 fL (7.4-10.4) H 03/01/23 16:52 Neut % (Auto) 61.2 % 03/01/23 16:52 Lymph % (Auto) 25.0 % 03/01/23 16:52 Martin % (Auto) 8.9 % 03/01/23 16:52 Eos % (Auto) 3.0 % 03/01/23 16:52 Baso % (Auto) 0.8 % 03/01/23 16:52 Neut # (Auto) 5.72 10^3/uL (1.8-7.7) 03/01/23 16:52 Lymph # (Auto) 2.3 10^3/uL (0.8-4.8) 03/01/23 16:52 Martin # (Auto) 0.8 10^3/uL (0.2-0.9) 03/01/23 16:52 Eos # (Auto) 0.3 10^3/uL (0.0-0.8) 03/01/23 16:52 Baso # (Auto) 0.1 10^3/uL (0.0-0.1) 03/01/23 16:52 Nucleated RBC % (auto) 0 % 03/01/23 16:52 Nucleated RBCs # 0.0 /100WBC 03/01/23 16:52 Sodium 134 mmol/L (136-145) L 03/01/23 16:52 Potassium 4.4 mmol/L (3.5-5.1) 03/01/23 16:52 Chloride 102 mmol/L (98-107) 03/01/23 16:52 Carbon Dioxide 23 mmol/L (22-29) 03/01/23 16:52 Anion Gap 13.4 (5-19) 03/01/23 16:52 BUN 23 mg/dL (6-20) H 03/01/23 16:52 Creatinine 0.9 mg/dL (0.5-0.9) 03/01/23 16:52 GFR Calculation 66.3 mL/min (90-130) L 03/01/23 16:52 Glucose 109 mg/dL (65-115) 03/01/23 16:52 Calculated Osmolality 282 mOsm/kg (285-295) L 03/01/23 16:52 Calcium 8.9 mg/dL (8.5-10.5) 03/01/23 16:52 Discharge Plan Discharge Patient Disposition: Home Clinical Impression: Edema of lower extremity Condition: Stable Prescriptions: New Lasix 40 mg tablet 40 mg PO DAILY Qty: 30 0RF No Action Mylanta Maximum Strength 400-400-40 mg/5 mL suspension 30 ml PO TID PRN (Reason: indigestion) 30 Days Qty: 355 11RF levetiracetam 500 mg tablet 500 mg PO BID lorazepam 1 mg tablet 1 mg PO TID Qty: 90 5RF quetiapine [Seroquel] 100 mg tablet 100 mg PO QAM Qty: 30 5RF sertraline [Zoloft] 100 mg tablet 200 mg PO DAILY@1900 Qty: 60 11RF L norgest/e.estradiol-e.estrad [Daysee] 0.15 mg-30 mcg (84)/10 mcg (7) tablets,dose pack,3 month 1 tab PO DAILY Qty: 182 3RF Rx Instructions: skip placebo week meloxicam 15 mg tablet 15 mg PO DAILY PRN (Reason: pain) Qty: 30 0RF Rx Instructions: No ibuprofen when taking meloxicam triamterene-hydrochlorothiazid 37.5-25 mg tablet 1 tab PO DAILY PRN (Reason: swelling) Qty: 7 0RF acetaminophen [Tylenol] 325 mg tablet 650 mg PO Q6H PRN (Reason: fever of 100.4F or pain) 30 Days Qty: 120 11RF Rx Instructions: not to exceed 8 tabs in 24 hours melatonin 10 mg tablet extended release 10 mg PO .qhs Qty: 30 11RF Dimetapp DM Cold-Cough (PE) 1-2.5-5 mg/5 mL solution 20 ml PO Q4H PRN (Reason: cough) 30 Days Qty: 118 5RF metoprolol tartrate 25 mg tablet See Rx Instructions .ROUTE .COMPLEX Qty: 180 3RF Dose Instruction: TAKE ONE TABLET BY MOUTH TWICE DAILY AT 8:00AM AND AT 7:00PM - CALL CLINIC WITH BLOOD PRESSURE GREATER THAN 160 / 100 OR LOWER THAN 100/60 Rx Instructions: TAKE ONE TABLET BY MOUTH TWICE DAILY AT 8:00AM AND AT 7:00PM - CALL CLINIC WITH BLOOD PRESSURE GREATER THAN 160 / 100 OR LOWER THAN 100/60 magnesium hydroxide [Milk of Magnesia] 400 mg/5 mL suspension See Rx Instructions .ROUTE .COMPLEX Qty: 3000 5RF Dose Instruction: TAKE 2 TABLESPOONFULS ( 30 ML'S ) BY MOUTH TWICE DAILY NEEDED FOR INDIGESTION Rx Instructions: TAKE 2 TABLESPOONFULS ( 30 ML'S ) BY MOUTH TWICE DAILY NEEDED FOR INDIGESTION polyethylene glycol 3350 [Miralax] 17 gram/dose powder 17 g PO DAILY PRN (Reason: constipation) 30 Days Qty: 119 5RF docusate sodium 100 mg capsule See Rx Instructions .ROUTE .COMPLEX Qty: 180 4RF Dose Instruction: TAKE ONE CAPSULE BY MOUTH TWICE DAILY AT 8:00AM AND 7:00PM FOR CONSTIPATION Rx Instructions: TAKE ONE CAPSULE BY MOUTH TWICE DAILY AT 8:00AM AND 7:00PM FOR CONSTIPATION cyanocobalamin (vitamin B-12) 1,000 mcg capsule 1,000 mcg PO DAILY Qty: 90 1RF omega-3 fatty acids 1,000 mg capsule 1,000 mg PO BID@0800,1900 Qty: 180 4RF calcium carbonate-vitamin D3 600 mg-5 mcg (200 unit) tablet See Rx Instructions .ROUTE .COMPLEX Qty: 100 4RF Dose Instruction: TAKE ONE TABLET BY MOUTH EVERY DAY AT 8:00AM Rx Instructions: TAKE ONE TABLET BY MOUTH EVERY DAY AT 8:00AM levocetirizine 5 mg tablet See Rx Instructions .ROUTE .COMPLEX Qty: 30 12RF Dose Instruction: TAKE ONE TABLET BY MOUTH DAILY Rx Instructions: TAKE ONE TABLET BY MOUTH DAILY calcium polycarbophil [Fiber-Lax] 625 mg tablet See Rx Instructions .ROUTE .COMPLEX Qty: 30 12RF Dose Instruction: TAKE ONE TABLET BY MOUTH EVERY DAY Rx Instructions: TAKE ONE TABLET BY MOUTH EVERY DAY fluticasone propionate 50 mcg/actuation spray,suspension See Rx Instructions .ROUTE .COMPLEX Qty: 16 12RF Dose Instruction: USE 2 SPRAYS IN EACH NOSTRIL EVERY DAY Rx Instructions: USE 2 SPRAYS IN EACH NOSTRIL EVERY DAY olopatadine 0.2 % drops 1 drp ophthalmic (eye) DAILY@1900 quetiapine 300 mg tablet 300 mg PO QPM mirtazapine 45 mg tablet 45 mg PO QPM Discharge Orders: Discharge ED (Routine); Ordered 03/01/23 Ordered By: David Skelton Referrals: Petty Brewer FNP [Primary Care Provider] - Patient Instructions: Opioid Safety, Pain Management Activity Restrictions/Additional Instructions: You are seen today for swelling in her legs recommend to take Lasix 40 mg daily check with your primary care doctor towards the end of the week to recheck a BMP return if you have further problems. Coding Level of Care Code ED Deputy Director Of Finance for Elder Luna
[2023-03-01] MEDS: hyDRALAzine 20 mg/mL INJ 1 mL 10 MG IVP (18:36)
[2023-03-01 19:08] VITALS: BP 152/85
== END 2023-03-01 19:08 | disposition home or self-care (01) ==
PROVIDERS: Emergency Provider Family Medicine; PCP Nurse Practitioner Family
DX: R60.0 Localized edema (principal); I12.9 Hypertensive chronic kidney disease with stage 1 through stage 4 chronic kidney disease, or unspecified chronic kidney disease; N18.9 Chronic kidney disease, unspecified
CPT/HCPCS: 36415; 80048; 85025; 93005; 96374; 96375; 99284; J0360; J1940

== ENCOUNTER → 2023-03-15 11:26 | Outpatient (BNVA) | payer MEDICARE, MEDICAID, SELFPAY | PROVIDERS: PCP Nurse Practitioner Family; Visit Provider Nurse Practitioner Family | DX: R56.9 Unspecified convulsions (principal) | CPT/HCPCS: 80053 ==

== ENCOUNTER → 2023-03-30 10:05 | Outpatient (BNVA) | payer MEDICARE, MEDICAID, SELFPAY | PROVIDERS: PCP Nurse Practitioner Family; Visit Provider Nurse Practitioner Family | DX: R10.9 Unspecified abdominal pain (principal) | CPT/HCPCS: 81000 ==

== ENCOUNTER → 2023-04-23 09:41 | Outpatient (BNVA) | payer MEDICARE, MEDICAID, SELFPAY | PROVIDERS: PCP Nurse Practitioner Family; Visit Provider Nurse Practitioner Family | DX: K59.09 Other constipation (principal) | CPT/HCPCS: 74018; 80053; 85025 ==

== ENCOUNTER 2023-05-21 10:14 | Outpatient (CLI) | payer MEDICARE, MEDICAID, SELFPAY ==
--- NOTE | 2023-05-21 10:15 | MM_ITS ---
WS: [id number] BILATERAL SCREENING DIGITAL TOMOSYNTHESIS MAMMOGRAM WITH CAD HISTORY: SCREENING COMPARISON: 03/27/2022 and 03/07/2021 Bilateral CC and MLO views with tomosynthesis and synthetic mammography submitted. Computer aided det ection analyzed. Breast composition: The breasts are extremely dense, which lowers the sensitivity of mammography. No suspicious masses, microcalcifications or architectural distortion. IMPRESSION: MM/[place] [id number] BI-RADS: 1-Negative FOLLOW UP: 1 Year Follow-up
== END 2023-05-21 10:15 | disposition home or self-care (01) ==
LOC: MOBLMAM 10:18
PROVIDERS: PCP Nurse Practitioner Family; Visit Provider Nurse Practitioner Family
DX: Z12.31 Encounter for screening mammogram for malignant neoplasm of breast (principal)
CPT/HCPCS: 77063; 77067

== ENCOUNTER → 2023-08-18 11:38 | Outpatient (BNVA) | payer MEDICARE, MEDICAID, OTHER, SELFPAY | PROVIDERS: PCP Nurse Practitioner Family; Visit Provider Nurse Practitioner Family | DX: N39.0 Urinary tract infection, site not specified (principal) | CPT/HCPCS: 81000 ==

== ENCOUNTER → 2023-08-20 10:52 | Outpatient (BNVA) | payer MEDICARE, SELFPAY | PROVIDERS: PCP Nurse Practitioner Family; Visit Provider Nurse Practitioner Family | DX: E53.8 Deficiency of other specified B group vitamins (principal); Z00.00 Encounter for general adult medical examination without abnormal findings; K59.00 Constipation, unspecified; G47.00 Insomnia, unspecified; I10 Essential (primary) hypertension | CPT/HCPCS: 80053; 80061; 82607; 84443; 85025 ==

== ENCOUNTER 2023-08-26 11:25 | Inpatient (IN) | payer MEDICARE, MEDICAID, SELFPAY ==
[2023-08-26 11:26] VITALS: BP 144/115; PULSE 89; RESP 18; TEMP 36.9; O2SAT 97; BMI 29.2
[2023-08-26 11:28] VITALS: BP 144/115; PULSE 93; RESP 18; TEMP 36.9; O2SAT 97; BMI 29.9
--- NOTE | 2023-08-26 11:32 | CT_ITS ---
WS: [id number] CT CERVICAL TRAUMA TECHNIQUE: Noncontrast CT of the cervical spine with coronal and sagittal reformatted images. CLINICAL INFORMATION: trauma COMPARISON: None. DLP: 1438.[address] scans at [facility] use at least one of these dose optimization techniques: automated e xposure control; mA and/or kV adjustment per patient size (includes targeted exams where dose is matc hed to clinical indication); or iterative reconstruction. FINDINGS: Cervical curve convex RIGHT. Straightening with slight reversal of the normal cervical lordosis. Disc space narrowing worse at C5-6 and C6-7. Normal craniocervical junction. Normal C1-C2 articulation. D ens is normal in appearance. Normal occipital condyles. No high-grade spinal canal narrowing. Inciden madeline congenital incomplete dorsal C1 ring. No evidence of acute fracture or dislocation. Normal prevertebral soft tissues. Mastoids air cells are well aerated. IMPRESSION: Cervical curve convex RIGHT. No acute fractures.
--- NOTE | 2023-08-26 11:36 | CT_ITS ---
WS: [id number] CT HEAD TECHNIQUE: Noncontrast CT of the head obtained from the skullbase to the vertex. CLINICAL INFORMATION: fall COMPARISON: CT 02/06/2022 DLP: 1438.[address] scans at [facility] use at least one of these dose optimization techniques: automated e xposure control; mA and/or kV adjustment per patient size (includes targeted exams where dose is matc hed to clinical indication); or iterative reconstruction. 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 Encephalomalacia in the RIGHT parasag ittal frontal lobe unchanged since the prior study. Atrophic vermis. No evidence of intracranial hemo rrhage or mass effect. Paranasal sinuses and mastoid air cells are well aerated. .Normal visualized soft tissues. IMPRESSION: 1. No evidence of intracranial hemorrhage or mass effect. 2. 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 Vermian atrophy. 3. No acute intracranial findings.
--- NOTE | 2023-08-26 11:37 | XRR_ITS ---
PROCEDURE INFORMATION: Exam: XR Right Ankle Exam date and time: 08/26/2023 12:00 PM Age: 53 years old Clinical indication: Pain; Ankle; Right; Additional info: Trauma TECHNIQUE: Imaging protocol: Radiologic exam of the right ankle. 3image(s) are provided. Views: 3 or more views. COMPARISON: No relevant prior studies available. FINDINGS: Bones/joints: There is some bulky Achilles level spurring demonstrated. Ankle mortise alignment is maintained. There appears to be some degenerative spurring of the tarsal level. This can also be seen with sequela of previous injury as well as some osseous bridging. Osseous alignment is maintained. No displaced fracture or dislocation is appreciated. Soft tissues: No radiopaque foreign body or subcutaneous emphysema is appreciated. There is some slight prominence of the soft tissues overall. XR/XR ankle RT min 3V* [id number] IMPRESSION: 1. Osseous alignment is maintained with some soft tissue swelling overall. No ankle fracture or dislocation is appreciated. 2. There appears to be some bulky spurring including at the tarsal level although incompletely included. Consider dedicated foot series.
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
--- NOTE | 2023-08-26 12:12 | PC.PHAR ---
caregiver states pt took all am meds except nasal spray and would not allow vitals to be taken. 08/26/23
[2023-08-26 12:17] LABS: Basophils % 0.3 %; Eosinophils # 0.1 10^3/uL (0.0-0.8); Eosinophils % 1.5 %; Hematocrit 37.1 % (36-47); Lymphocytes # 1.6 10^3/uL (0.8-4.8); Lymphocytes % 18.6 %; Mean Corpuscular HGB Conc 32.9 g/dL (30-55); Mean Corpuscular Hemoglobin 31.5 pg (27-33); Mean Corpuscular Volume 95.9 fl (85-98); Mean Platelet Volume 10.4 fL (7.4-10.4); Monocytes # 0.5 10^3/uL (0.2-0.9); Monocytes % 5.5 %; Neutrophils # 6.49 10^3/uL (1.8-7.7); Neutrophils % 73.5 %; Nucleated Red Blood Cells % 0 %; Platelet Count 237 10^3/cmm (157-399); Red Blood Count 3.87 10^6/uL (3.85-5.65); Red Cell Distribution Width 13.7 % (12.1-15.1); White Blood Count 8.83 10^3/uL (3.29-11.43)
[2023-08-26 12:18] VITALS: BP 149/96; PULSE 76; RESP 15; O2SAT 97
[2023-08-26 12:37] LABS: HCG, Serum Qual Negative (Negative)
[2023-08-26 12:41] LABS: Alanine Aminotransferase 56 U/L (0-33); Albumin Level 3.7 g/dL (3.5-5.2); Alkaline Phosphatase 67 U/L (35-105); Anion Gap 13.5 (5-19); Aspartate Amino Transferase 26 U/L (0-32); Blood Urea Nitrogen 14 mg/dL (6-20); Carbon Dioxide 26 mmol/L (22-29); Chloride 106 mmol/L (98-107); Creatinine Clr Calc Pharmacy 78.0535; Globulin 3.2 g/dL (1.3-4.6); Glucose 117 mg/dL (65-115); Osmolality Calculated 296 mOsm/kg (285-295); Potassium 3.5 mmol/L (3.5-5.1); Sodium 142 mmol/L (136-145); Total Bilirubin 0.2 mg/dL (0.15-1.2); Total Protein 6.9 g/dL (6.6-8.7)
--- NOTE | 2023-08-26 13:55 | PC.NURSE ---
pt guardian called at this time to be made aware of admission.
[2023-08-26 14:02] VITALS: BP 167/99; PULSE 83; RESP 16; TEMP 36.3; O2SAT 98
[2023-08-26] MEDS: acetaminophen 325 mg Tablet 650 MG PO (14:31)
[2023-08-26] MEDS: ibuprofen 600 mg Tablet PO ×2 (15:52→23:47)
[2023-08-26] MEDS: ondansetron 4 MG Tablet PO (16:41)
[2023-08-26 16:58] LABS: Bilirubin Urine Neg (Negative); Blood Urine Neg (Negative); Glucose Urine UA Norm (Normal); Ketones Urine Negative (Negative); Leukocyte Esterase Urine Negative (Negative); Nitrate Urine Negative (Negative); Protein Urine Neg (Negative); Urine Appearance Cloudy (CLEAR); Urine Color Yellow (Yellow); Urobilinogen Urine Norm (Negative); pH Urine 6 (5-7)
[2023-08-26 17:01] LABS: Add Urine Culture? No; Amorphous Sediment Urine TRACE /hpf; Bacteria Urine 1+ /hpf; Mucus Urine TRACE /hpf; RBC Urine 0-4 /hpf (0-2); Squamous Epithelial Cell Urine 0-4 /hpf (0-5); WBC Urine 0-4 /hpf (0-5)
[2023-08-26] MEDS: OLANZapine 5 mg ODT PO (17:38)
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
--- NOTE | 2023-08-26 18:38 | PC.NURSE ---
patient reports vomiting a couple of times. swabbed for covid and flu. patient given zofran, which didn't help. patient reports that she is home sick . temp 98.2
[2023-08-26 20:21] LABS: Influenza A by IFA negative (Negative); Influenza B by IFA negative (Negative)
[2023-08-26 20:22] VITALS: BP 152/88; PULSE 90; RESP 16; TEMP 36.8; O2SAT 98
[2023-08-26 20:22] LABS: SARS Covid-2 Antigen negative (Negative)
[2023-08-26] MEDS: trazodone 50 mg Tablet PO (23:48)
[2023-08-26] MEDS: metoclopramide 10 mg Tablet PO (23:48)
[2023-08-27 06:00] VITALS: RESP 18
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
[2023-08-27] MEDS: OLANZapine 5 mg ODT PO ×2 (10:35→15:42)
[2023-08-27] MEDS: hyDROXYzine 25 mg Capsule 50 MG PO (11:20)
[2023-08-27] MEDS: acetaminophen 325 mg Tablet 650 MG PO ×2 (11:21→19:43)
[2023-08-27 14:00] VITALS: BP 166/85; PULSE 111; RESP 14; O2SAT 98
[2023-08-27] MEDS: metoclopramide 10 mg Tablet PO (14:57)
[2023-08-27] MEDS: quetiapine 100 mg Tablet PO (14:57)
[2023-08-27] MEDS: ibuprofen 600 mg Tablet PO (15:52)
--- NOTE | 2023-08-27 15:56 | XRR_ITS ---
PROCEDURE INFORMATION: Exam: XR Right Ankle Exam date and time: 08/27/2023 5:38 PM Age: 53 years old Clinical indication: Ankle and knee; Right; Patient HX: RT ankle/knee pain; No known injury TECHNIQUE: Imaging protocol: Radiologic exam of the right ankle. Views: 3 or more views. COMPARISON: CR (LOW EXM, ) 08/26/2023 12:00 PM FINDINGS: Bones/joints: Normal. Small Achilles spur. Soft tissues: Normal. XR/XR ankle RT min 3V* [id number] IMPRESSION: No acute bony abnormality.
--- NOTE | 2023-08-27 15:57 | XRR_ITS ---
PROCEDURE INFORMATION: Exam: XR Right Knee Exam date and time: 08/27/2023 5:38 PM Age: 53 years old Clinical indication: Ankle and knee; Right; Patient HX: RT ankle/knee pain; No known injury TECHNIQUE: Imaging protocol: Radiologic exam of the right knee. Views: 3 views. COMPARISON: CR (LOW EXM, ) 08/27/2023 5:38 PM FINDINGS: Bones/joints: Normal. Soft tissues: Normal. XR/XR knee RT 3V* [id number] IMPRESSION: No acute bony abnormality.
--- NOTE | 2023-08-27 15:58 | CTR_ITS ---
PROCEDURE INFORMATION: Exam: CT Head Without Contrast Exam date and time: 08/27/2023 4:11 PM Age: 53 years old Clinical indication: Injury or trauma; Fall; Blunt trauma (contusions or hematomas); Additional info: Unwitnessed fall, C/O pain TECHNIQUE: Imaging protocol: Computed tomography of the head without contrast. Radiation optimization: All CT scans at this facility use at least one of these dose optimization techniques: automated exposure control; mA and/or kV adjustment per patient size (includes targeted exams where dose is matched to clinical indication); or iterative reconstruction. COMPARISON: CT head wo con* [id number] 08/26/2023 11:49 AM RADIATION DOSE METRICS: Total DLP (mGy-cm): 980.18 FINDINGS: Brain: No intracranial hemorrhage. There is global parenchymal volume loss. Periventricular white matter hypoattenuation is nonspecific but most likely due to small vessel disease. No evidence of acute territorial infarct or cerebral edema. No mass effect or midline shift. Focal encephalomalacia right frontal pole. 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 Vermian atrophy. Cerebral ventricles: Prominent ventricles likely secondary to volume loss. Paranasal sinuses: Visualized sinuses are unremarkable. No fluid levels. Mastoid air cells: Visualized mastoid air cells are well aerated. Bones/joints: Unremarkable. No acute fracture. Soft tissues: Unremarkable. CT/CT head wo con* [id number] IMPRESSION: No acute intracranial findings.
--- NOTE | 2023-08-27 16:38 | PC.NURSE ---
Patient was anxious. Patient was visiting with OT. OT notified this nurse of patient's anxiety. This nurse talked with patient, attempting to verbally deesculate. Attempts were unsuccessful. Administered Zyprexa 5mg ODT to patient. Patient shaking her hands, stated that she couldn't breathe. Within a few minutes of Zyprexa administration, patient's shaking hands calmed. Patient's breathing deepened. Patient tearful. Patient states that her head hurt because she fell earlier in the bathroom. Patient also stated that her right ankle and right knee were hurting. Patient did not notify staff of fall after it occurred. When asked if she slipped, patient stated that she slipped while in the bathroom, hitting her head and injuring her right knee and ankle. Notified Dr. Barahona who verbally ordered CT of head, XR of ankle and knee. This nurse administered 600mg Ibuprofen. Patient was not left alone during the entire episode.
[2023-08-27] MEDS: levETIRAcetam 500 mg Tablet PO (18:30)
[2023-08-27] MEDS: LORazepam 2 mg Tablet PO (18:30)
[2023-08-27] MEDS: omega-3 fatty acids 1,000 mg Capsule 1000 MG PO (18:30)
[2023-08-27] MEDS: metoprolol tartrate 25 mg Tablet PO (18:30)
[2023-08-27] MEDS: docusate sodium 100 mg Capsule PO (18:30)
[2023-08-27] MEDS: sertraline 100 mg Tablet 250 MG PO (18:30)
[2023-08-27] MEDS: trazodone 50 mg Tablet PO (19:43)
[2023-08-27] MEDS: mirtazapine 15 mg Tablet 45 MG PO (19:44)
[2023-08-27] MEDS: quetiapine 300 mg Tablet PO (19:44)
[2023-08-27 21:14] VITALS: BP 149/74; PULSE 62; RESP 16; TEMP 36.3; O2SAT 97
[2023-08-28] MEDS: ibuprofen 600 mg Tablet PO ×2 (00:05→15:51)
[2023-08-28 06:00] VITALS: BP 138/78; PULSE 92; RESP 16; O2SAT 95
[2023-08-28] MEDS: LORazepam 2 mg Tablet PO ×2 (09:33→17:57)
[2023-08-28] MEDS: calcium carb-vit d 600mg/400unit 1 Tablet 1 EACH PO (09:33)
[2023-08-28] MEDS: levETIRAcetam 500 mg Tablet PO ×2 (09:33→17:58)
[2023-08-28] MEDS: metoprolol tartrate 25 mg Tablet PO ×2 (09:33→17:57)
[2023-08-28] MEDS: docusate sodium 100 mg Capsule PO ×2 (09:33→17:58)
[2023-08-28] MEDS: omega-3 fatty acids 1,000 mg Capsule 1000 MG PO ×2 (09:35→17:58)
[2023-08-28] MEDS: quetiapine 300 mg Tablet PO ×2 (09:36→21:00)
--- NOTE | 2023-08-28 10:52 | P.NPUPN_ITS ---
Subjective NPU 2 Subjective: Patient presented today seeming to be able to appreciate the plan that we will likely keep her here till Wednesday at the earliest. She was able to except that in the conversation without tears and reported that she is tolerating the medication changes without any problems. Mental Status Exam 2 MSE Comments: This is an obese white female in hospital scrubs with limited grooming and eye contact. Dysmorphic facies. No abnormal movements except for mild psychomotor retardation. Cooperative with exam in mild distress. Speech was decreased rate and volume and childlike with dysarthria. Very hard to understand. Mood described as better affect subdued, but less tearful. Thought process linear. Thought content: Patient denied suicidal or homicidal ideation, there were no delusions reported noted, she denied any auditory visual hallucinations. Attention and concentration were limited and memory was unreliable but none were formally tested. She was alert and oriented to person and place. Insight judgment and impulse control were impaired. Intellectual ability impaired. Vitals/I&O/Wt Last Vital Signs Temp 97.3 F L 08/27/23 21:14 Pulse 92 08/28/23 06:00 Resp 16 08/28/23 06:00 BP 138/78 08/28/23 06:00 Pulse Ox 95 08/28/23 06:00 O2 Del Method Room Air 08/26/23 20:22 Weight last 48 hrs Weight 81.647 kg Weight 77.111 kg Data NPU 08/26/23 12:09 08/26/23 12:09 A&P Assessment and plan (1) Post traumatic stress disorder: (2) Outbursts of explosive behavior: (3) Depression, unspecified: (4) Moderate intellectual disabilities: Plan 53 year old white female with hx of impulse control disorder nos, depression, possibly ptsd and moderate intellectual disability who had a moment of extreme impulsivity admitted to observe and consider medication changes. . 1.? Continue current medication. Increased Seroquel by continuing 300 mg p.o. twice daily but giving an additional dose of 100 mg in the afternoon. Zoloft was increased from 200 mg to 250 mg p.o. daily evening. 2.? Consult with social work team on plans after discharge. 3.? Encourage individual, group, and milieu therapy. 4.? Continue q-15-minute checks for safety. 5.? Patient with intellectual disability and will likely always have impulse control issues. Given extreme behaviors we will observe and consider medication changes. Involuntary Hold Information 2 96 Hour Hold: 96 Hour Involuntary Admission: No Attestations NPU 2 Medical Necessity Statement*: Inpatient hospitalization is medically necessary and the clinically appropriate intervention, at this time. We will monitor medications and make changes as indicated. Likely length of stay is 2-4 days. Coding Level of Care Code Acute Code for [facility] Fwd Diagnoses Post traumatic stress disorder F43.10 Outbursts of explosive behavior R46.89 Depression, unspecified F32.A Moderate intellectual disabilities F71
[2023-08-28] MEDS: acetaminophen 325 mg Tablet 650 MG PO (12:14)
[2023-08-28 14:00] VITALS: BP 123/85; PULSE 81; RESP 14; O2SAT 96
[2023-08-28] MEDS: quetiapine 100 mg Tablet PO (14:06)
[2023-08-28] MEDS: hydrocortisone 1% cream 28 gm 1 APPLIC TOPICAL (14:09)
[2023-08-28] MEDS: sertraline 100 mg Tablet 250 MG PO (17:57)
[2023-08-28] MEDS: mirtazapine 15 mg Tablet 45 MG PO (20:59)
[2023-08-28 21:04] VITALS: BP 134/85; PULSE 69; RESP 16; O2SAT 97
[2023-08-29 06:00] VITALS: RESP 16
--- NOTE | 2023-08-29 08:01 | P.NPUPN_ITS ---
Subjective NPU 2 Subjective: Patient presented today reporting that she is doing okay. She reported that she is hopeful for discharge tomorrow but we discussed that Dr. Henry would be here tomorrow making his own decisions regarding discharge. We discussed the likelihood of discharge in the next 48 hours with likely discharge tomorrow. She denied any side effects to the medications and reports she is doing fine with the medication changes. Mental Status Exam 2 MSE Comments: This is an obese white female in hospital scrubs with limited grooming and eye contact. Dysmorphic facies. No abnormal movements except for mild psychomotor retardation. Cooperative with exam in no acute distress. Speech was decreased rate and volume and childlike with dysarthria. Very hard to understand. Mood described as better affect congruent. Thought process linear. Thought content: Patient denied suicidal or homicidal ideation, there were no delusions reported noted, she denied any auditory visual hallucinations. Attention and concentration were limited and memory was unreliable but none were formally tested. She was alert and oriented to person and place. Insight judgment and impulse control were impaired. Intellectual ability impaired. Vitals/I&O/Wt Last Vital Signs Temp 97.4 F L 08/29/23 14:00 Pulse 60 08/29/23 20:00 Resp 18 08/29/23 20:00 BP 146/86 08/29/23 20:00 Pulse Ox 97 08/29/23 20:00 O2 Del Method Room Air 08/29/23 20:00 Weight last 48 hrs Weight 86.183 kg Weight 85.899 kg Data NPU 08/26/23 12:09 08/26/23 12:09 A&P Assessment and plan (1) Post traumatic stress disorder: (2) Outbursts of explosive behavior: (3) Depression, unspecified: (4) Moderate intellectual disabilities: Plan 53 year old white female with hx of impulse control disorder nos, depression, possibly ptsd and moderate intellectual disability who had a moment of extreme impulsivity admitted to observe and consider medication changes. . 1.? Continue current medication. Increased Seroquel by continuing 300 mg p.o. twice daily but giving an additional dose of 100 mg in the afternoon. Zoloft was increased from 200 mg to 250 mg p.o. daily evening. 2.? Consult with social work team on plans after discharge. 3.? Encourage individual, group, and milieu therapy. 4.? Continue q-15-minute checks for safety. 5.? Patient with intellectual disability and will likely always have impulse control issues. Given extreme behaviors we will observe and consider medication changes. Involuntary Hold Information 2 96 Hour Hold: 96 Hour Involuntary Admission: No Attestations NPU 2 Medical Necessity Statement*: Inpatient hospitalization is medically necessary and the clinically appropriate intervention, at this time. We will monitor medications and make changes as indicated. Likely length of stay is 1-3 days. Coding Level of Care Code Acute Code for [facility] Fwd Diagnoses Post traumatic stress disorder F43.10 Outbursts of explosive behavior R46.89 Depression, unspecified F32.A Moderate intellectual disabilities F71
[2023-08-29] MEDS: omega-3 fatty acids 1,000 mg Capsule 1000 MG PO ×2 (09:48→21:59)
[2023-08-29] MEDS: calcium carb-vit d 600mg/400unit 1 Tablet 1 EACH PO (09:48)
[2023-08-29] MEDS: docusate sodium 100 mg Capsule PO ×2 (09:48→17:31)
[2023-08-29] MEDS: LORazepam 2 mg Tablet PO ×2 (09:48→17:31)
[2023-08-29] MEDS: metoprolol tartrate 25 mg Tablet PO ×2 (09:48→17:31)
[2023-08-29] MEDS: levETIRAcetam 500 mg Tablet PO ×2 (09:48→17:31)
[2023-08-29] MEDS: calcium polycarbophil 625 mg Tablet PO (09:48)
[2023-08-29] MEDS: quetiapine 300 mg Tablet PO ×2 (09:48→21:58)
[2023-08-29] MEDS: fluticasone nasal spray 16gm Btl 2 SPRAY INTRANASAL (09:50)
[2023-08-29] MEDS: ondansetron 4 MG Tablet PO (12:28)
[2023-08-29] MEDS: ibuprofen 600 mg Tablet PO ×2 (12:43→21:56)
[2023-08-29 14:00] VITALS: BP 160/97; PULSE 66; RESP 15; TEMP 36.3; O2SAT 100
[2023-08-29] MEDS: quetiapine 100 mg Tablet PO (14:59)
[2023-08-29 20:00] VITALS: BP 146/86; PULSE 60; RESP 18; O2SAT 97
[2023-08-29] MEDS: sertraline 100 mg Tablet 250 MG PO (21:57)
[2023-08-29] MEDS: mirtazapine 15 mg Tablet 45 MG PO (21:57)
[2023-08-29] MEDS: trazodone 50 mg Tablet PO (21:58)
[2023-08-30 06:00] VITALS: RESP 16
[2023-08-30] MEDS: calcium carb-vit d 600mg/400unit 1 Tablet 1 EACH PO (08:34)
[2023-08-30] MEDS: quetiapine 300 mg Tablet PO ×2 (08:34→19:59)
[2023-08-30] MEDS: fluticasone nasal spray 16gm Btl 2 SPRAY INTRANASAL (08:34)
[2023-08-30] MEDS: LORazepam 2 mg Tablet PO ×2 (08:34→17:18)
[2023-08-30] MEDS: levETIRAcetam 500 mg Tablet PO ×2 (08:34→17:18)
[2023-08-30] MEDS: calcium polycarbophil 625 mg Tablet PO (08:35)
[2023-08-30] MEDS: metoprolol tartrate 25 mg Tablet PO ×2 (08:35→17:17)
[2023-08-30] MEDS: docusate sodium 100 mg Capsule PO ×2 (08:35→17:17)
[2023-08-30] MEDS: omega-3 fatty acids 1,000 mg Capsule 1000 MG PO ×2 (08:37→19:58)
[2023-08-30] MEDS: ibuprofen 600 mg Tablet PO ×2 (12:12→19:58)
[2023-08-30 14:00] VITALS: BP 144/88; PULSE 94; RESP 17; TEMP 36.7; O2SAT 98
[2023-08-30] MEDS: quetiapine 100 mg Tablet PO (15:58)
[2023-08-30] MEDS: acetaminophen 325 mg Tablet 650 MG PO (17:13)
--- NOTE | 2023-08-30 17:15 | P.NPUPN_ITS ---
Subjective NPU 2 Subjective: 53-year-old with mild to moderate cognit lyndon impairment currently residing in an [facility]L admitted with suicidal ideation. Patient had been compliant on the milieu. She had reported that she would continue to try to behave better at home. She did not report any side effects from her medications. Patient presented today with no behavioral concerns. She reports no thoughts of hurting herself or others. Mental Status Exam 2 MSE Comments: This is an obese white female in hospital scrubs with limited grooming and eye contact with dysmorphic facies. No abnormal movements except for mild psychomotor retardation. Cooperative with exam in no acute distress. Speech was decreased rate and volume and childlike with dysarthria appreciated. Very hard to understand. Mood described as good and her affect was flat and mood incongruent. Thought process was linear. Thought content: Patient denied suicidal or homicidal ideation, there were no delusions reported noted, she denied any auditory visual hallucinations. Attention and concentration were limited and memory was unreliable but none were formally tested. She was alert and oriented to person and place. Insight, judgment and impulse control were all impaired. Intelligence was commensurate to moderate cognitive impairment. Vitals/I&O/Wt Last Vital Signs Temp 98.0 F 08/30/23 14:00 Pulse 94 08/30/23 14:00 Resp 17 08/30/23 14:00 BP 144/88 08/30/23 14:00 Pulse Ox 98 08/30/23 14:00 O2 Del Method Room Air 08/30/23 14:00 Weight last 48 hrs Weight 86.183 kg Weight 85.899 kg Data NPU 08/26/23 12:09 08/26/23 12:09 A&P Assessment and plan (1) Post traumatic stress disorder: (2) Outbursts of explosive behavior: (3) Depression, unspecified: (4) Moderate intellectual disabilities: Plan 53 year old white female with hx of impulse control disorder nos, depression, possibly ptsd and moderate intellectual disability who had a moment of extreme impulsivity admitted to observe and consider medication changes. . 1.? Continue current medication. Continued Seroquel by continuing 300 mg p.o. twice daily but giving an additional dose of 100 mg in the afternoon. Zoloft 250mg daily. 2.? Consult with social work team on plans after discharge. 3.? Encourage individual, group, and milieu therapy. 4.? Continue q-15-minute checks for safety. 5.? Patient with intellectual disability and will likely always have impulse control issues. Given extreme behaviors we will observe and consider medication changes. Involuntary Hold Information 2 96 Hour Hold: 96 Hour Involuntary Admission: No Attestations NPU 2 Medical Necessity Statement*: Inpatient hospitalization is medically necessary and the clinically appropriate intervention, at this time. We will monitor medications and make changes as indicated. Likely length of stay is 1-2 days. Coding Level of Care Code Acute Code for Chg Fwd Diagnoses Post traumatic stress disorder F43.10 Outbursts of explosive behavior R46.89 Depression, unspecified F32.A Moderate intellectual disabilities F71
[2023-08-30] MEDS: sertraline 100 mg Tablet 250 MG PO (19:57)
[2023-08-30] MEDS: trazodone 50 mg Tablet PO (19:58)
[2023-08-30] MEDS: mirtazapine 15 mg Tablet 45 MG PO (19:59)
[2023-08-30 20:04] VITALS: BP 132/85; PULSE 66; RESP 18; TEMP 36.2; O2SAT 97
[2023-08-31 06:00] VITALS: BP 154/92; PULSE 107; RESP 16; O2SAT 95
[2023-08-31] MEDS: calcium polycarbophil 625 mg Tablet PO (08:11)
[2023-08-31] MEDS: metoprolol tartrate 25 mg Tablet PO ×2 (08:11→17:58)
[2023-08-31] MEDS: docusate sodium 100 mg Capsule PO ×2 (08:11→17:57)
[2023-08-31] MEDS: levETIRAcetam 500 mg Tablet PO ×2 (08:12→17:58)
[2023-08-31] MEDS: quetiapine 300 mg Tablet PO ×2 (08:12→20:12)
[2023-08-31] MEDS: omega-3 fatty acids 1,000 mg Capsule 1000 MG PO ×2 (08:12→17:58)
[2023-08-31] MEDS: calcium carb-vit d 600mg/400unit 1 Tablet 1 EACH PO (08:12)
[2023-08-31] MEDS: LORazepam 2 mg Tablet PO ×2 (08:12→17:58)
[2023-08-31] MEDS: fluticasone nasal spray 16gm Btl 2 SPRAY INTRANASAL (08:14)
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
[2023-08-31 12:46] VITALS: BP 154/92; PULSE 107; RESP 16; O2SAT 95
[2023-08-31 14:00] VITALS: BP 134/89; PULSE 75; RESP 16; TEMP 36.6; O2SAT 97
[2023-08-31] MEDS: quetiapine 100 mg Tablet PO (15:24)
--- NOTE | 2023-08-31 16:48 | DCPLANNER ---
IMM was printed and placed in pt's discharge paperwork for staff and they were informed. Copy placed in file.
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
[2023-08-31] MEDS: sertraline 100 mg Tablet 250 MG PO (18:00)
[2023-08-31] MEDS: trazodone 50 mg Tablet PO (20:11)
[2023-08-31] MEDS: ibuprofen 600 mg Tablet PO (20:11)
[2023-08-31] MEDS: mirtazapine 15 mg Tablet 45 MG PO (20:12)
[2023-08-31 20:43] VITALS: BP 132/86; PULSE 98; RESP 18; O2SAT 95
[2023-09-01 06:00] VITALS: BP 125/78; PULSE 72; RESP 17; TEMP 36.5; O2SAT 97
[2023-09-01] MEDS: docusate sodium 100 mg Capsule PO (08:17)
[2023-09-01] MEDS: calcium carb-vit d 600mg/400unit 1 Tablet 1 EACH PO (08:17)
[2023-09-01] MEDS: levETIRAcetam 500 mg Tablet PO (08:17)
[2023-09-01] MEDS: calcium polycarbophil 625 mg Tablet PO (08:17)
[2023-09-01] MEDS: LORazepam 2 mg Tablet PO (08:17)
[2023-09-01] MEDS: metoprolol tartrate 25 mg Tablet PO (08:17)
[2023-09-01] MEDS: omega-3 fatty acids 1,000 mg Capsule 1000 MG PO (08:20)
[2023-09-01] MEDS: quetiapine 300 mg Tablet PO (08:23)
[2023-09-01] MEDS: fluticasone nasal spray 16gm Btl 2 SPRAY INTRANASAL (09:28)
[2023-09-01] MEDS: blistex lip oint 7 gm Tube 1 APPLIC TOPICAL (10:25)
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
== END 2023-09-01 12:59 | disposition home or self-care (01) | DRG 881 ==
LOC: ER 12:21 → NP 12:25
PROVIDERS: Admitting Provider Psychiatry & Neurology Psychiatry; Emergency Provider Family Medicine; PCP Nurse Practitioner Family; Visit Provider Psychiatry & Neurology Psychiatry
DX: F32.A Depression, unspecified (principal); R45.851 Suicidal ideations; F71 Moderate intellectual disabilities; F43.10 Post-traumatic stress disorder, unspecified; M25.571 Pain in right ankle and joints of right foot; S09.90XA Unspecified injury of head, initial encounter; X58.XXXA Exposure to other specified factors, initial encounter; R45.4 Irritability and anger
CPT/HCPCS: 36415; 70450; 72125; 73562; 73610; 80053; 81001; 84703; 85025; 87426; 87804; 97165; 99285; J8597; Q0162

== ENCOUNTER → 2023-09-23 10:16 | Outpatient (BNVA) | payer MEDICARE, OTHER, SELFPAY | PROVIDERS: PCP Nurse Practitioner Family; Visit Provider Nurse Practitioner Family | DX: R79.89 Other specified abnormal findings of blood chemistry (principal) | CPT/HCPCS: 82607; 83036; 86705; 86706; 86709; 86803; 87340 ==

== ENCOUNTER → 2023-10-11 09:00 | Outpatient (BNVA) | payer MEDICARE, MEDICAID, SELFPAY | PROVIDERS: PCP Nurse Practitioner Family; Referring Provider Nurse Practitioner Family; Visit Provider Psychiatry & Neurology Neurology | DX: R56.9 Unspecified convulsions (principal); R29.90 Unspecified symptoms and signs involving the nervous system; S06.5XAA Traumatic subdural hemorrhage with loss of consciousness status unknown, initial encounter; Y99.9 Unspecified external cause status | CPT/HCPCS: 99203 ==

== ENCOUNTER 2023-10-25 14:08 | Emergency (ER) | payer MEDICARE, MEDICAID, SELFPAY ==
[2023-10-25 14:20] VITALS: BMI 30.7
[2023-10-25 14:24] VITALS: BP 163/78; PULSE 85; RESP 16; TEMP 36.9; O2SAT 98
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
--- NOTE | 2023-10-25 14:53 | ECG_ITS ---
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 Measurements Intervals [place] Rate: 77 P: 61 SD: 144 QRS: -6 QRSD: 80 T: 61 QT: 367 QTc: 416 Interpretive Statements SINUS RHYTHM POSSIBLE ANTERIOR MYOCARDIAL INFARCTION , OF INDETERMINATE AGE [30 ms Q WAVE IN V3/V4, OR R < 0.2 mV IN V4] Compared to ECG 03/01/2023 16:43:59 Myocardial infarct finding now present Electronically Signed On 10-26-2023 23:07:00 CDT by Althea Henson M.D. [id number]
[2023-10-25 15:23] LABS: Basophils % 0.5 %; Eosinophils % 0.4 %; Hematocrit 42.2 % (36-47); Lymphocytes # 1.2 10^3/uL (0.8-4.8); Mean Corpuscular HGB Conc 32.5 g/dL (30-55); Mean Corpuscular Hemoglobin 31.6 pg (27-33); Mean Corpuscular Volume 97.5 fl (85-98); Mean Platelet Volume 10.8 fL (7.4-10.4); Monocytes # 0.3 10^3/uL (0.2-0.9); Monocytes % 4.2 %; Neutrophils # 5.79 10^3/uL (1.8-7.7); Neutrophils % 78.5 %; Nucleated Red Blood Cells % 0 %; Platelet Count 243 10^3/cmm (157-399); Red Blood Count 4.33 10^6/uL (3.85-5.65); Red Cell Distribution Width 13.5 % (12.1-15.1); White Blood Count 7.38 10^3/uL (3.29-11.43)
[2023-10-25 15:57] LABS: Amphetamines Screen Urine Negative (Negative); Barbiturates Screen Urine Negative (Negative); Benzodiazepines Screen Urine Positive (Negative); Cocaine Screen Urine Negative (Negative); Opiate Screen Urine Negative (Negative); PCP Screen Urine Negative (Negative); THC Screen Urine Negative (Negative)
[2023-10-25 15:58] LABS: Alanine Aminotransferase 21 U/L (0-33); Alkaline Phosphatase 80 U/L (35-105); Anion Gap 17.3 (5-19); Aspartate Amino Transferase 17 U/L (0-32); Blood Urea Nitrogen 9 mg/dL (6-20); Calcium 8.8 mg/dL (8.5-10.5); Carbon Dioxide 22 mmol/L (22-29); Chloride 104 mmol/L (98-107); Globulin 3.4 g/dL (1.3-4.6); Glomerular Filtration Rate 58.5 mL/min (90-130); Glucose 98 mg/dL (65-115); Osmolality Calculated 287 mOsm/kg (285-295); Potassium 4.3 mmol/L (3.5-5.1); Sodium 139 mmol/L (136-145); Total Bilirubin 0.2 mg/dL (0.15-1.2); Total Protein 7.4 g/dL (6.6-8.7)
[2023-10-25 15:59] LABS: Acetaminophen < 5.0 ug/mL (10-30); Alcohol Level < 10 mg/dL (0-10); Creatinine Clr Calc Pharmacy 71.2014; Salicylate < 0.3 mg/dL (3-10)
[2023-10-25 16:37] LABS: Add Urine Microscopic? YES; Bilirubin Urine Neg (Negative); Blood Urine Neg (Negative); Glucose Urine UA Norm (Normal); Ketones Urine Negative (Negative); Leukocyte Esterase Urine Negative (Negative); Nitrate Urine Negative (Negative); Protein Urine Trace (Negative); Urine Appearance SL Hazy (CLEAR); Urine Color Yellow (Yellow); Urobilinogen Urine Norm (Negative); pH Urine 6 (5-7)
[2023-10-25 16:38] LABS: Add Urine Culture? No; Bacteria Urine 1+ /hpf; RBC Urine 0-4 /hpf (0-2); WBC Urine 0-4 /hpf (0-5)
--- NOTE | 2023-10-25 18:19 | PC.NURSE ---
Pt refused dinner tray, nurse offered sandwich/jello/pudding, pt still refused
[2023-10-25 18:30] LABS: Adenovirus Not Detected (NOT DETECT); Chlamydia Pneumoniae Not Detected (NOT DETECT); Coronavirus 229E,HKU1,NL63,OC4 Not Detected (NOT DETECT); Human Metapneumovirus Not Detected (NOT DETECT); Human Rhinovirus/Enterovirus Not Detected (NOT DETECT); Influenza A Not Detected (NOT DETECT); Influenza A H1 Not Detected (NOT DETECT); Influenza A H1-2009 Not Detected (NOT DETECT); Influenza A H3 Not Detected (NOT DETECT); Influenza B Not Detected (NOT DETECT); Mycoplasma Pneumoniae Not Detected (NOT DETECT); Parainfluenza Virus Type 1 Not Detected (NOT DETECT); Parainfluenza Virus Type 2 Not Detected (NOT DETECT); Parainfluenza Virus Type 3 Not Detected (NOT DETECT); Parainfluenza Virus Type 4 Not Detected (NOT DETECT); Respiratory Syncytial Virus A Not Detected (NOT DETECT); Respiratory Syncytial Virus B Not Detected (NOT DETECT); SARS-COV-2 Not Detected (NOT DETECT)
--- NOTE | 2023-10-25 19:48 | PC.NURSE ---
angie denied d/t acuity
--- NOTE | 2023-10-25 20:23 | PC.NURSE ---
This nurse spoke with a customer service representative teller of [facility] supportive living stating that she would have to call and get approval for the pt to return to her house. This nurse explained that we have been unable to secure placement for the pt and she would be getting discharged.
[2023-10-25] MEDS: mirtazapine 15 mg Tablet 45 MG PO (20:32)
[2023-10-25] MEDS: quetiapine 300 mg Tablet PO (20:33)
[2023-10-25] MEDS: metoprolol tartrate 25 mg Tablet PO (20:34)
[2023-10-25] MEDS: docusate sodium 100 mg Capsule PO (20:34)
[2023-10-25] MEDS: LORazepam 2 mg Tablet PO (20:34)
[2023-10-25] MEDS: levETIRAcetam 500 mg Tablet PO (20:34)
[2023-10-25] MEDS: sertraline 100 mg Tablet PO (20:34)
[2023-10-25 21:42] VITALS: BP 122/79; PULSE 72; RESP 18; O2SAT 95
== END 2023-10-26 00:02 ==
PROVIDERS: Physician Assistant; Emergency Provider Physician Assistant; PCP Nurse Practitioner Family
DX: R45.4 Irritability and anger (principal); I12.9 Hypertensive chronic kidney disease with stage 1 through stage 4 chronic kidney disease, or unspecified chronic kidney disease; N18.9 Chronic kidney disease, unspecified; Z11.52 Encounter for screening for COVID-19
CPT/HCPCS: 36415; 80053; 80306; 80307; 81001; 84443; 85025; 87486; 87581; 87633; 93005; 99284

== ENCOUNTER → 2023-11-25 13:14 | Outpatient (BNVA) | payer MEDICARE, MEDICAID, SELFPAY | PROVIDERS: PCP Nurse Practitioner Family; Visit Provider Nurse Practitioner Family | DX: R39.9 Unspecified symptoms and signs involving the genitourinary system (principal) | CPT/HCPCS: 81000 ==

== ENCOUNTER 2023-12-12 18:46 | Emergency (ER) | payer MEDICARE, MEDICAID, SELFPAY ==
[2023-12-12 18:47] VITALS: BP 172/93; PULSE 76; RESP 18; TEMP 36.8; O2SAT 98; BMI 31.6
--- NOTE | 2023-12-12 18:57 | ED_ITS ---
HPI - Seizure 2 General: Chief Complaint: Seizure Stated Complaint: seizure like activity Time Seen by Provider: 12/12/23 18:48 History of Present Illness: HPI Narrative: Patient was brought in by EMS for concerns of seizure-like activity. Patient has what was described as staring off into space and hard to arouse. Patient has had similar episodes before and is on Keppra 500 mg twice a day for these episodes. Patient appears nontoxic. Patient appears no acute distress. Seizure History: Yes Review of Systems 2 General: Reports: 10 or more systems reviewed and unremarkable except in HPI and below PFSH ED 2 PFSH: Medical History Seizures Psychiatric care Bilateral renal cysts CKD (chronic kidney disease) Hypertension PTTD (posterior tibial tendon dysfunction) Drug induced akathisia Moderate intellectual disabilities Social History Smoking and tobacco/nicotine status: never used tobacco/nicotine Second hand smoke exposure: No Alcohol intake: never Substance/Drug Use: never Lives independently: No Housing: Other Details: nursing home Marital status: Single Current occupational status: disabled Current gender identity: Female Physical Exam 2 Const: COMMON NORMALS: alert HENMT: COMMON NORMALS: normocephalic HEAD & SCALP: normocephalic Neck/C-Spine: COMMON NORMALS: full ROM Resp: COMMON NORMALS: normal respiratory effort Cardio: COMMON NORMALS: regular rate RATE: regular rate GI: COMMON NORMALS: Soft to palpation and non-tender PALPATION: Yes Soft to palpation Back/Pelvis: COMMON NORMALS: thoracic and lumbar spine normal to inspection Extremity: COMMON NORMALS: normal to inspection Neuro: SENSORIUM/ORIENTATION: Yes alert Skin: COMMON NORMALS: turgor normal GENERAL SKIN EXAM: turgor normal Course 2 Vital Signs: Vital signs: Vital Signs Temperature 98.2 F 12/12/23 18:47 Pulse Rate 71 12/12/23 19:48 Respiratory Rate 18 12/12/23 19:48 Blood Pressure 179/99 12/12/23 19:48 Pulse Oximetry 100 12/12/23 19:48 Oxygen Delivery Me thod Room Air 12/12/23 18:47 MDM - Seizure MDM Narrative Medical decision making narrative: Patient was brought in by EMS for concerns of possible seizure-like activity. Patient appears nontoxic. Patient appears in no acute distress. Respirations are even lungs are clear to auscultation. Abdomen soft nontender. Skin is warm and dry. Vital signs are normal except for some elevated blood pressure. Differential diagnosis includes stroke syndrome, seizure episodes, pseudoseizure, anxiety. CT of the head was unremarkable. CBC CMP showed no significant abnormalities. Urinalysis noted no obvious infection. Reviewed exam with patient's family recommended increasing Keppra to 750 twice a day. Patient was given an extra gram here in the ER. [facility] Patient will follow-up with neurology for further recommendations and treatment. Lab Data 12/12/23 18:59 12/12/23 18:59 Labs: Radiology Impressions Head CT 12/12/23 18:58 IMPRESSION: 1. No evidence of acute intracranial pathology. 2. Stable chronic changes. Laboratory Results WBC 6.83 10^3/uL (3.29-11.43) 12/12/23 18:59 RBC 3.97 10^6/uL (3.85-5.65) 12/12/23 18:59 Hgb 12.40 g/dL (11.27-16.99) 12/12/23 18:59 Hct 38.1 % (36-47) 12/12/23 18:59 MCV 96.0 fl (85-98) 12/12/23 18:59 MCH 31.2 pg (27-33) 12/12/23 18:59 MCHC 32.5 g/dL (30-55) 12/12/23 18:59 RDW 13.6 % (12.1-15.1) 12/12/23 18:59 Plt Count 210 10^3/cmm (157-399) 12/12/23 18:59 MPV 11.4 fL (7.4-10.4) H 12/12/23 18:59 Neut % (Auto) 57.8 % 12/12/23 18:59 Lymph % (Auto) 31.3 % 12/12/23 18:59 [place] % (Auto) 8.1 % 12/12/23 18:59 Eos % (Auto) 1.8 % 12/12/23 18:59 Baso % (Auto) 0.6 % 12/12/23 18:59 Neut # (Auto) 3.95 10^3/uL (1.8-7.7) 12/12/23 18:59 Lymph # (Auto) 2.1 10^3/uL (0.8-4.8) 12/12/23 18:59 [place] # (Auto) 0.6 10^3/uL (0.2-0.9) 12/12/23 18:59 Eos # (Auto) 0.1 10^3/uL (0.0-0.8) 12/12/23 18:59 Baso # (Auto) 0.0 10^3/uL (0.0-0.1) 12/12/23 18:59 Nucleated RBC % (auto) 0 % 12/12/23 18:59 Nucleated RBCs # 0.0 /100WBC 12/12/23 18:59 Sodium 144 mmol/L (136-145) 12/12/23 18:59 Potassium 3.8 mmol/L (3.5-5.1) 12/12/23 18:59 Chloride 106 mmol/L (98-107) 12/12/23 18:59 Carbon Dioxide 25 mmol/L (22-29) 12/12/23 18:59 Anion Gap 16.8 (5-19) 12/12/23 18:59 BUN 18 mg/dL (6-20) 12/12/23 18:59 Creatinine 1.1 mg/dL (0.5-0.9) H 12/12/23 18:59 GFR Calculation 52.4 mL/min (90-130) L 12/12/23 18:59 Glucose 131 mg/dL (65-115) H 12/12/23 18:59 Calculated Osmolality 302 mOsm/kg (285-295) H 12/12/23 18:59 Calcium 8.0 mg/dL (8.5-10.5) L 12/12/23 18:59 Total Bilirubin 0.2 mg/dL (0.15-1.2) 12/12/23 18:59 AST 22 U/L (0-32) 12/12/23 18:59 ALT 37 U/L (0-33) H 12/12/23 18:59 Alkaline Phosphatase 66 U/L (35-105) 12/12/23 18:59 Total Protein 7.1 g/dL (6.6-8.7) 12/12/23 18:59 Albumin 4.2 g/dL (3.5-5.2) 12/12/23 18:59 Globulin 2.9 g/dL (1.3-4.6) 12/12/23 18:59 Urine Color Yellow (Yellow) 12/12/23 19:09 Urine Appearance Clear (CLEAR) 12/12/23 19:09 Urine pH 6 (5-7) 12/12/23 19:09 Ur Specific [place] 1.020 (1.005-1.030) 12/12/23 19:09 Urine Protein 1+ (Negative) H 12/12/23 19:09 Urine Glucose (UA) Norm (Normal) 12/12/23 19:09 Urine Ketones Negative (Negative) 12/12/23 19:09 Urine Blood Neg (Negative) 12/12/23 19:09 Urine Nitrate Negative (Negative) 12/12/23 19:09 Urine Bilirubin Neg (Negative) 12/12/23 19:09 Urine Urobilinogen 1 mg/dL (Negative) H 12/12/23 19:09 Ur Leukocyte Esterase Trace (Negative) H 12/12/23 19:09 Urine RBC 0-4 /hpf (0-2) H 12/12/23 19:09 Urine WBC 15-25 /hpf (0-5) H 12/12/23 19:09 Ur Squamous Epith Cells 5-10 /hpf (0-5) H 12/12/23 19:09 Amorphous Sediment 1+ /hpf 12/12/23 19:09 Urine Bacteria 3+ /hpf (NONE) H 12/12/23 19:09 All radiology interpretation(s) finalized by discharge Discharge Plan Discharge Patient Disposition: Home Clinical Impression: Seizures Condition: Stable Prescriptions: New levetiracetam 750 mg tablet 750 mg PO BID Qty: 60 2RF Discontinued levetiracetam 500 mg tablet 500 mg PO BID Qty: 60 5RF No Action sertraline 100 mg tablet 100 mg PO .at bed Qty: 30 11RF mirtazapine 15 mg tablet 15 mg PO .qhs Qty: 30 11RF ketoconazole 2 % cream 1 applic topical BID 14 Days Qty: 15 0RF levocetirizine 5 mg tablet 5 mg PO DAILY PRN (Reason: allergy symptoms) Qty: 60 0RF L norgest/e.estradiol-e.estrad [Daysee] 0.15 mg-30 mcg (84)/10 mcg (7) tablets,dose pack,3 month 1 tab PO DAILY Qty: 182 3RF Rx Instructions: skip placebo week omega-3 fatty acids 1,000 mg capsule 1,000 mg PO BID@0800,1900 Qty: 180 4RF metoprolol tartrate 25 mg tablet 25 mg PO BID Qty: 60 5RF acetaminophen 325 mg tablet 650 mg PO QID PRN (Reason: .COMPLEX) Qty: 90 2RF Rx Instructions: 2 TAB PO Q6H PRN FOR fever > 100.4F OR PAIN polyethylene glycol 3350 17 gram/dose powder See Rx Instructions .ROUTE .COMPLEX Qty: 510 5RF Dose Instruction: MIX AND DRINK 17 GRAMS IN LIQUID DAILY NEEDED FOR CONSTIPATION Rx Instructions: MIX AND DRINK 17 GRAMS IN LIQUID DAILY NEEDED FOR CONSTIPATION lorazepam 2 mg tablet 2 mg PO BID Qty: 60 5RF quetiapine 100 mg tablet 100 mg PO DAILY Qty: 30 5RF quetiapine 300 mg tablet 300 mg PO BID Qty: 60 5RF olopatadine 0.2 % drops 1 drp ophthalmic (eye) DAILY@1900 calcium carbonate-vitamin D3 600 mg-5 mcg (200 unit) tablet 1 tab PO QAM Rx Instructions: AT 8:00AM calcium polycarbophil [Fiber-Lax] 625 mg tablet 625 mg PO DAILY docusate sodium 100 mg capsule 100 mg PO BID fluticasone propionate 50 mcg/actuation spray,suspension 2 spray intranasal DAILY melatonin 10 mg tablet extended release 10 mg PO BEDTIME meloxicam 15 mg tablet 15 mg PO DAILY PRN (Reason: Pain) ondansetron 8 mg tablet,disintegrating 8 mg PO Q8H PRN (Reason: Nausea And Vomiting) Milk of Magnesia 400 mg/5 mL suspension 30 ml PO BID PRN (Reason: Indigestion) Discharge Orders: Discharge ED (Routine); Ordered 12/12/23 Ordered By: Clay Centeno Referrals: Tameka Saucedo FNP-C [Primary Care Provider] - Patient Instructions: Epilepsy (ED) Activity Restrictions/Additional Instructions: Increase Keppra dosing to 750 twice a day. Follow-up with neurologist for further instructions. Return to ED for new concerns. Coding Level of Care Code ED Knot Borer for Elder Luna
--- NOTE | 2023-12-12 18:58 | CTR_ITS ---
PROCEDURE INFORMATION: Exam: CT Head Without Contrast Exam date and time: 12/12/2023 7:16 PM Age: 53 years old Clinical indication: Pain and condition or disease; Convulsions or seizures; Headache; Patient HX: EMS arrival for seizure activity. PT C/O MCALLISTER. History of traumatic subdural hematoma. ; Additional info: Headache, seizure TECHNIQUE: Imaging protocol: Computed tomography of the head without contrast. Radiation optimization: All CT scans at this facility use at least one of these dose optimization techniques: automated exposure control; mA and/or kV adjustment per patient size (includes targeted exams where dose is matched to clinical indication); or iterative reconstruction. COMPARISON: CT head wo con* [id number] 08/27/2023 4:11 PM RADIATION DOSE METRICS: Total DLP (mGy-cm): 931.88 FINDINGS: Brain: Moderate right frontal encephalomalacia is stable. 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 Mild global atrophy. Nonspecific deep white matter hypodensities. Cerebral ventricles: Stable prominence of the ventricles. Paranasal sinuses: The paranasal sinuses are clear. Mastoid air cells: The mastoid air cells are clear. Bones/joints: No acute osseous abnormalities are seen. Soft tissues: Unremarkable. CT/CT head wo con* [id number] IMPRESSION: 1. No evidence of acute intracranial pathology. 2. Stable chronic changes.
[2023-12-12 19:09] LABS: Basophils % 0.6 %; Eosinophils # 0.1 10^3/uL (0.0-0.8); Eosinophils % 1.8 %; Hematocrit 38.1 % (36-47); Lymphocytes # 2.1 10^3/uL (0.8-4.8); Lymphocytes % 31.3 %; Mean Corpuscular HGB Conc 32.5 g/dL (30-55); Mean Corpuscular Hemoglobin 31.2 pg (27-33); Mean Platelet Volume 11.4 fL (7.4-10.4); Monocytes # 0.6 10^3/uL (0.2-0.9); Monocytes % 8.1 %; Neutrophils # 3.95 10^3/uL (1.8-7.7); Neutrophils % 57.8 %; Nucleated Red Blood Cells % 0 %; Platelet Count 210 10^3/cmm (157-399); Red Blood Count 3.97 10^6/uL (3.85-5.65); Red Cell Distribution Width 13.6 % (12.1-15.1); White Blood Count 6.83 10^3/uL (3.29-11.43)
[2023-12-12 19:30] LABS: Alanine Aminotransferase 37 U/L (0-33); Albumin Level 4.2 g/dL (3.5-5.2); Alkaline Phosphatase 66 U/L (35-105); Anion Gap 16.8 (5-19); Aspartate Amino Transferase 22 U/L (0-32); Blood Urea Nitrogen 18 mg/dL (6-20); Carbon Dioxide 25 mmol/L (22-29); Chloride 106 mmol/L (98-107); Globulin 2.9 g/dL (1.3-4.6); Glomerular Filtration Rate 52.4 mL/min (90-130); Glucose 131 mg/dL (65-115); Osmolality Calculated 302 mOsm/kg (285-295); Potassium 3.8 mmol/L (3.5-5.1); Sodium 144 mmol/L (136-145); Total Bilirubin 0.2 mg/dL (0.15-1.2); Total Protein 7.1 g/dL (6.6-8.7)
[2023-12-12] MEDS: levETIRAcetam 1,000 MG/100 ML PREMIX 400 MG IV (19:39)
[2023-12-12 19:48] VITALS: BP 179/99; PULSE 71; RESP 18; O2SAT 100
[2023-12-12 19:50] LABS: Add Urine Microscopic? YES; Amorphous Sediment Urine 1+ /hpf; Bacteria Urine 3+ /hpf; Bilirubin Urine Neg (Negative); Blood Urine Neg (Negative); Glucose Urine UA Norm (Normal); Ketones Urine Negative (Negative); Leukocyte Esterase Urine Trace (Negative); Nitrate Urine Negative (Negative); Protein Urine 1+ (Negative); RBC Urine 0-4 /hpf (0-2); Urine Appearance Clear (CLEAR); Urine Color Yellow (Yellow); Urobilinogen Urine 1 mg/dL (Negative); WBC Urine 15-25 /hpf (0-5); pH Urine 6 (5-7)
[2023-12-12 19:51] LABS: Add Urine Culture? Yes
[2023-12-12 20:44] VITALS: BP 162/100; PULSE 95; RESP 20; O2SAT 97
[2023-12-14 06:45] LABS: Levetiracetam Immunoassy 9.8 mcg/mL (6.0-46.0)
--- NOTE | 2023-12-14 07:40 | DCPLANNER ---
message sent for ER f/u to neurology
== END 2023-12-12 20:44 | disposition home or self-care (01) ==
PROVIDERS: Emergency Provider Nurse Practitioner Family; PCP Nurse Practitioner Family
DX: R56.9 Unspecified convulsions (principal); I12.9 Hypertensive chronic kidney disease with stage 1 through stage 4 chronic kidney disease, or unspecified chronic kidney disease; N18.9 Chronic kidney disease, unspecified
CPT/HCPCS: 70450; 80053; 80177; 81001; 85025; 87086; 96365; 99285; J1953

== ENCOUNTER → 2023-12-21 13:59 | Outpatient (BNVA) | payer MEDICARE, MEDICAID, SELFPAY | PROVIDERS: PCP Nurse Practitioner Family; Visit Provider Psychiatry & Neurology Neurology | DX: R56.9 Unspecified convulsions (principal); R94.01 Abnormal electroencephalogram [EEG] | CPT/HCPCS: 95813 ==

== ENCOUNTER → 2024-01-27 09:40 | Outpatient (BNVA) | payer MEDICARE, MEDICAID, OTHER, SELFPAY | PROVIDERS: PCP Nurse Practitioner Family; Visit Provider Nurse Practitioner Family | DX: E53.8 Deficiency of other specified B group vitamins (principal); I10 Essential (primary) hypertension; R73.03 Prediabetes; K59.00 Constipation, unspecified; N18.9 Chronic kidney disease, unspecified; R56.9 Unspecified convulsions | CPT/HCPCS: 80053; 80061; 82607; 83036; 84443; 85025 ==

== ENCOUNTER 2024-04-13 16:18 | Emergency (ER) | payer MEDICARE, MEDICAID, SELFPAY ==
--- NOTE | 2024-04-13 16:19 | ECG_ITS ---
[facility] Test Date: 2024-04-13 Pat Name: Catrina Whitney Department: Room: Gender: Female Edi Specialist: : 1970 Requested By: Eduard Hines Order Number: [id number] Sony MD: Althea Henson M.D. Measurements Intervals [place] Rate: 90 P: 49 LA: 142 QRS: -3 QRSD: 89 T: 53 QT: 337 QTc: 413 Interpretive Statements SINUS RHYTHM Compared to ECG 10/25/2023 14:53:17 Myocardial infarct finding no longer present Electronically Signed On 04-14-2024 18:09:29 CDT by Althea Henson M.D. [id number]
--- NOTE | 2024-04-13 16:19 | XR_ITS ---
WS: [id number] Exam: XR chest 1V portable [id number] Date/Time of Exam: 04/13/2024 4:26 PM Reason For Exam: cp Comparison 07/05/2012. Lungs are hyperinflated and clear. Normal cardiomediastinal silhouette. No pleural effusions. Mild le voscoliosis of the thoracic spine. XR/XR chest 1V portable [id number] IMPRESSION: 1. No acute finding. Hyperinflation.
[2024-04-13 16:20] VITALS: BP 167/87; PULSE 90; RESP 18; TEMP 36.7; O2SAT 98
--- NOTE | 2024-04-13 16:22 | ED_ITS ---
HPI - Chest Pain 2 General: Chief Complaint: Chest Pain Stated Complaint: cp, n/v Time Seen by Provider: 04/13/24 16:18 Source: patient and EMS Mode of arrival: EMS Limitations: no limitations History of Present Illness: 53-year-old female who presented EMS [facility] she been having some nausea and vomiting since last night had vomiting today and went to a clinic was complaining of a burning pain in her chest. The clinic called EMS for this. Patient received nitro she also received Zofran she states she feels much improved denies any pain currently had some upper abdominal burning pain as well with the vomiting. Denies any diarrhea or fevers Associated symptoms: Reports abdominal pain, nausea and vomiting; Deny dyspnea or fever(s) Related Data Home Medications Medication Instructions Recorded Confirmed olopatadine 0.2 % eye drops 1 drp ophthalmic (eye) DAILY@1900 02/18/21 04/13/24 calcium polycarbophil 625 mg 625 mg PO DAILY 08/26/23 04/13/24 tablet (Fiber-Lax) fluticasone propionate 50 2 spray intranasal DAILY 08/26/23 04/13/24 mcg/actuation nasal spray,suspension magnesium hydroxide 400 mg/5 mL 30 ml PO BID PRN Indigestion 10/25/23 04/13/24 oral suspension (Milk of Magnesia) meloxicam 15 mg tablet 15 mg PO DAILY PRN Pain 10/25/23 04/13/24 ondansetron 8 mg disintegrating 8 mg PO Q8H PRN Nausea And Vomiting 10/25/23 04/13/24 tablet Previous Rx's Medication Instructions Recorded L norgest/E estradiol-E estrad 1 tab PO DAILY #182 ea 02/01/23 0.15 mg-30 mcg (84)/10 mcg(7) tabs,3mos (Daysee) mirtazapine 15 mg tablet 15 mg PO .qhs #30 tabs 11/17/23 sertraline 100 mg tablet 100 mg PO .at bed #30 tabs 11/17/23 acetaminophen 325 mg tablet 650 mg (2 x 325 mg) PO QID PRN 11/25/23 .COMPLEX #90 tabs polyethylene glycol 3350 17 See Rx Instructions .Route 12/09/23 gram/dose oral powder .COMPLEX #510 grams quetiapine 100 mg tablet 100 mg PO DAILY #30 tabs 12/10/23 quetiapine 300 mg tablet 300 mg PO BID agitation and mood 12/10/23 #60 tabs melatonin 10 mg tablet,extended 10 mg PO BEDTIME #30 tabs 12/24/23 release levetiracetam 1,000 mg tablet 1,000 mg PO BID #60 tabs 12/30/23 calcium carbonate 600 mg-vitamin See Rx Instructions .Route 01/06/24 D3 5 mcg (200 unit) tablet .COMPLEX #100 tabs omega 4-pgq-act-fish oil 300 See Rx Instructions .Route 01/06/24 mg-1,000 mg capsule (Fish Oil) .COMPLEX #180 ea docusate sodium 100 mg capsule 100 mg PO BID #60 caps 02/01/24 lorazepam 2 mg tablet 2 mg PO BID #60 tabs 02/16/24 levocetirizine 5 mg tablet 5 mg PO DAILY allergy symptoms #60 03/01/24 tabs benzocaine 20 %-menthol 0.26 1 ea mucous membrane TID #11.9 03/17/24 %-zinc chloride 0.15 % mucosal gel grams (Orajel 3X Toothache-Gum) chlorhexidine gluconate 0.12 % 15 ml buccal BID PRN mouth sores 03/29/24 mouthwash #1,893 mL metoprolol tartrate 25 mg tablet 25 mg PO BID #60 tabs 04/05/24 ondansetron 4 mg disintegrating 4 mg PO Q6H PRN nausea and 04/13/24 tablet vomiting #14 tabs Allergies Allergy/AdvReac Type Severity Reaction Status Date / Time nystatin Allergy Unknown Verified 04/13/24 14:29 Review of Systems 2 Const: Denies: fever(s), chills, body aches or change in appetite ENMT: Denies: throat pain or dental pain Card: Reports: chest pain Resp: Denies: dyspnea GI: Reports: abdominal pain, nausea and vomiting; Denies: diarrhea : Denies: dysuria Musc: Denies: neck pain or back pain Neuro: Denies: headache(s) PFSH ED 2 PFSH: Medical History Seizures Psychiatric care Bilateral renal cysts CKD (chronic kidney disease) Hypertension PTTD (posterior tibial tendon dysfunction) Drug induced akathisia Moderate intellectual disabilities Social History Smoking and tobacco/nicotine status: never used tobacco/nicotine Second hand smoke exposure: No Alcohol intake: never Substance/Drug Use: never Lives independently: No Housing: Other Details: [facility] Marital status: Single Current occupational status: disabled Current gender identity: Female Physical Exam 2 Const: COMMON NORMALS: no acute distress, patient oriented x3 and healthy appearing HENMT: COMMON NORMALS: normocephalic and atraumatic HEAD & SCALP: n ormocephalic and atraumatic Eye: COMMON NORMALS: Equal, round and reactive pupils present and EOMs intact bilaterally PUPIL: Yes Equal, round and reactive pupils present Neck/C-Spine: COMMON NORMALS: full ROM and supple Chest: COMMONS NORMALS: normal inspection of the chest and normal palpation of entire chest wall Resp: COMMON NORMALS: normal respiratory effort, No retractions, No use of accessory muscles and clear to auscultation bilaterally AUSCULTATION: clear to auscultation bilaterally Cardio: COMMON NORMALS: regular rate, regular rhythm and No murmurs present (Cardio) RATE: regular rate RHYTHM: regular rhythm GI: COMMON NORMALS: Normal to inspection, nondistended, normoactive bowel sounds present, Soft to palpation, non-tender and no masses PALPATION: Yes Soft to palpation Extremity: COMMON NORMALS: normal to inspection and full ROM Neuro: COMMON NORMALS: patient oriented x3, moves all extremities and no focal motor deficits Psych: COMMON NORMALS: mental status grossly normal, Normal thought process present and cooperative THOUGHT PROCESS: Normal thought process present Skin: COMMON NORMALS: no rashes or lesions noted and no wounds GENERAL SKIN EXAM: no rashes or lesions noted Course 2 Vital Signs: Vital signs: Vital Signs Temperature 98.1 F 04/13/24 16:20 Pulse Rate 90 04/13/24 17:01 Respiratory Rate 18 04/13/24 17:01 Blood Pressure 155/90 04/13/24 17:01 Pulse Oximetry 95 04/13/24 17:01 Oxygen Delivery Me thod Room Air 04/13/24 16:20 MDM - Chest Pain Medical Decision Making Patient presents here with chest pain is atypical in nature is likely esophageal pain from her vomiting she feels much improved here she has been no pain here blood work imaging here is all normal I will prescribe her Zofran for home she is follow-up with her PCP return if worsening Medical Records I reviewed the patient's medical records. Lab Data I reviewed the patient's lab results. 04/13/24 16:32 04/13/24 16:32 Laboratory Results WBC 7.83 10^3/uL (3.29-11.43) 04/13/24 16:32 RBC 4.05 10^6/uL (3.85-5.65) 04/13/24 16:32 Hgb 12.90 g/dL (11.27-16.99) 04/13/24 16:32 Hct 39.9 % (36-47) 04/13/24 16:32 MCV 98.5 fl (85-98) H 04/13/24 16:32 MCH 31.9 pg (27-33) 04/13/24 16:32 MCHC 32.3 g/dL (30-55) 04/13/24 16:32 RDW 13.2 % (12.1-15.1) 04/13/24 16:32 Plt Count 262 10^3/cmm (157-399) 04/13/24 16:32 MPV 11.1 fL (7.4-10.4) H 04/13/24 16:32 Neut % (Auto) 62.5 % 04/13/24 16:32 Lymph % (Auto) 27.1 % 04/13/24 16:32 [place] % (Auto) 7.5 % 04/13/24 16:32 Eos % (Auto) 1.9 % 04/13/24 16:32 Baso % (Auto) 0.6 % 04/13/24 16:32 Neut # (Auto) 4.89 10^3/uL (1.8-7.7) 04/13/24 16:32 Lymph # (Auto) 2.1 10^3/uL (0.8-4.8) 04/13/24 16:32 [place] # (Auto) 0.6 10^3/uL (0.2-0.9) 04/13/24 16:32 Eos # (Auto) 0.2 10^3/uL (0.0-0.8) 04/13/24 16:32 Baso # (Auto) 0.1 10^3/uL (0.0-0.1) 04/13/24 16:32 Nucleated RBC % (auto) 0 % 04/13/24 16:32 Nucleated RBCs # 0.0 /100WBC 04/13/24 16:32 PT 13.10 SECONDS (12.1-14.9) 04/13/24 16:32 INR 0.96 (0.8-1.2) 04/13/24 16:32 Sodium 139 mmol/L (136-145) 04/13/24 16:32 Potassium 3.7 mmol/L (3.5-5.1) 04/13/24 16:32 Chloride 102 mmol/L (98-107) 04/13/24 16:32 Carbon Dioxide 24 mmol/L (22-29) 04/13/24 16:32 Anion Gap 16.7 (5-19) 04/13/24 16:32 BUN 14 mg/dL (6-20) 04/13/24 16:32 Creatinine 1.0 mg/dL (0.5-0.9) H 04/13/24 16:32 GFR Calculation 58.5 mL/min (90-130) L 04/13/24 16:32 Glucose 106 mg/dL (65-115) 04/13/24 16:32 Calculated Osmolality 289 mOsm/kg (285-295) 04/13/24 16:32 Calcium 8.7 mg/dL (8.5-10.5) 04/13/24 16:32 Total Bilirubin 0.2 mg/dL (0.15-1.2) 04/13/24 16:32 AST 16 U/L (0-32) 04/13/24 16:32 ALT 21 U/L (0-33) 04/13/24 16:32 Alkaline Phosphatase 67 U/L (35-105) 04/13/24 16:32 Troponin T Baseline < 6 ng/L (0-10) 04/13/24 16:32 Total Protein 7.3 g/dL (6.6-8.7) 04/13/24 16:32 Albumin 4.1 g/dL (3.5-5.2) 04/13/24 16:32 Globulin 3.2 g/dL (1.3-4.6) 04/13/24 16:32 Lipase 50 U/L (13-60) 04/13/24 16:32 All radiology interpretation(s) finalized by discharge EKG Data EKG 1: I personally reviewed and interpreted this EKG as follows: EKG interpretation date: 04/13/24 EKG interpretation time: 16:23 Interpretation: nsr hr [address] or t wave abnormalities qrs 89 qtc 385 Discharge Plan Discharge Patient Disposition: Home Clinical Impression: Vomiting, Chest pain Condition: Stable Prescriptions: New ondansetron 4 mg tablet,disintegrating 4 mg PO Q6H PRN (Reason: nausea and vomiting) Qty: 14 0RF No Action sertraline 100 mg tablet 100 mg PO .at bed Qty: 30 11RF mirtazapine 15 mg tablet 15 mg PO .qhs Qty: 30 11RF L norgest/e.estradiol-e.estrad [Daysee] 0.15 mg-30 mcg (84)/10 mcg (7) tablets,dose pack,3 month 1 tab PO DAILY Qty: 182 3RF Rx Instructions: skip placebo week Orajel 3X Toothache-Gum 20-0.26-0.15 % gel 1 ea mucous membrane TID Qty: 11.9 0RF acetaminophen 325 mg tablet 650 mg PO QID PRN (Reason: .COMPLEX) Qty: 90 2RF Rx Instructions: 2 TAB PO Q6H PRN FOR fever > 100.4F OR PAIN polyethylene glycol 3350 17 gram/dose powder See Rx Instructions .ROUTE .COMPLEX Qty: 510 5RF Dose Instruction: MIX AND DRINK 17 GRAMS IN LIQUID DAILY NEEDED FOR CONSTIPATION Rx Instructions: MIX AND DRINK 17 GRAMS IN LIQUID DAILY NEEDED FOR CONSTIPATION quetiapine 100 mg tablet 100 mg PO DAILY Qty: 30 5RF quetiapine 300 mg tablet 300 mg PO BID Qty: 60 5RF melatonin 10 mg tablet extended release 10 mg PO BEDTIME Qty: 30 11RF levetiracetam 1,000 mg tablet 1,000 mg PO BID Qty: 60 5RF calcium carbonate-vitamin D3 600 mg-5 mcg (200 unit) tablet See Rx Instructions .ROUTE .COMPLEX Qty: 100 4RF Dose Instruction: TAKE ONE TABLET BY MOUTH EVERY DAY AT 8:00AM Rx Instructions: TAKE ONE TABLET BY MOUTH EVERY DAY AT 8:00AM omega 7-emq-tvg-fish oil [Fish Oil] 300-1,000 mg capsule See Rx Instructions .ROUTE .COMPLEX Qty: 180 4RF Dose Instruction: TAKE ONE CAPSULE BY MOUTH TWICE DAILY - 8:00AM AND 7:00PM Rx Instructions: TAKE ONE CAPSULE BY MOUTH TWICE DAILY - 8:00AM AND 7:00PM docusate sodium 100 mg capsule 100 mg PO BID Qty: 60 11RF lorazepam 2 mg tablet 2 mg PO BID Qty: 60 5RF levocetirizine 5 mg tablet 5 mg PO DAILY Qty: 60 5RF chlorhexidine gluconate 0.12 % mouthwash 15 ml buccal BID PRN (Reason: mouth sores) Qty: 1893 0RF metoprolol tartrate 25 mg tablet 25 mg PO BID Qty: 60 5RF olopatadine 0.2 % drops 1 drp ophthalmic (eye) DAILY@1900 calcium polycarbophil [Fiber-Lax] 625 mg tablet 625 mg PO DAILY fluticasone propionate 50 mcg/actuation spray,suspension 2 spray intranasal DAILY meloxicam 15 mg tablet 15 mg PO DAILY PRN (Reason: Pain) ondansetron 8 mg tablet,disintegrating 8 mg PO Q8H PRN (Reason: Nausea And Vomiting) Milk of Magnesia 400 mg/5 mL suspension 30 ml PO BID PRN (Reason: Indigestion) Discharge Orders: Discharge ED (Routine); Ordered 04/13/24 Ordered By: Eduard Hines Referrals: Tameka Saucedo FNP-C [Primary Care Provider] - Discharge Diet: Advance as tolerated Discharge Activity: Resume usual activity Patient Instructions: Acute Nausea and Vomiting (ED) Coding Level of Care Code ED Project Management Analyst for Elder Luna
[2024-04-13 16:46] LABS: Basophils # 0.1 10^3/uL (0.0-0.1); Basophils % 0.6 %; Eosinophils # 0.2 10^3/uL (0.0-0.8); Eosinophils % 1.9 %; Hematocrit 39.9 % (36-47); Lymphocytes # 2.1 10^3/uL (0.8-4.8); Lymphocytes % 27.1 %; Mean Corpuscular HGB Conc 32.3 g/dL (30-55); Mean Corpuscular Hemoglobin 31.9 pg (27-33); Mean Corpuscular Volume 98.5 fl (85-98); Mean Platelet Volume 11.1 fL (7.4-10.4); Monocytes # 0.6 10^3/uL (0.2-0.9); Monocytes % 7.5 %; Neutrophils # 4.89 10^3/uL (1.8-7.7); Neutrophils % 62.5 %; Nucleated Red Blood Cells % 0 %; Platelet Count 262 10^3/cmm (157-399); Red Blood Count 4.05 10^6/uL (3.85-5.65); Red Cell Distribution Width 13.2 % (12.1-15.1); White Blood Count 7.83 10^3/uL (3.29-11.43)
[2024-04-13 16:54] LABS: INR 0.96 (0.8-1.2)
[2024-04-13 16:58] LABS: Troponin(5th) Baseline < 6 ng/L (0-10)
[2024-04-13 16:59] LABS: Alanine Aminotransferase 21 U/L (0-33); Albumin Level 4.1 g/dL (3.5-5.2); Alkaline Phosphatase 67 U/L (35-105); Anion Gap 16.7 (5-19); Aspartate Amino Transferase 16 U/L (0-32); Blood Urea Nitrogen 14 mg/dL (6-20); Calcium 8.7 mg/dL (8.5-10.5); Carbon Dioxide 24 mmol/L (22-29); Chloride 102 mmol/L (98-107); Globulin 3.2 g/dL (1.3-4.6); Glomerular Filtration Rate 58.5 mL/min (90-130); Glucose 106 mg/dL (65-115); Lipase 50 U/L (13-60); Osmolality Calculated 289 mOsm/kg (285-295); Potassium 3.7 mmol/L (3.5-5.1); Sodium 139 mmol/L (136-145); Total Bilirubin 0.2 mg/dL (0.15-1.2); Total Protein 7.3 g/dL (6.6-8.7)
[2024-04-13] MEDS: ondansetron 2 mg/ML SDV 2 mL 4 MG IVP (17:00)
[2024-04-13] MEDS: lidocaine 2% viscous 15 ML, aluminum-mag hydrox-simethicon 30 ML, sucralfate oral liq 1 GM PO (17:00)
[2024-04-13 17:01] VITALS: BP 155/90; PULSE 90; RESP 18; O2SAT 95
== END 2024-04-13 17:47 | disposition home or self-care (01) ==
PROVIDERS: Emergency Provider Emergency Medicine; PCP Nurse Practitioner Family
DX: R11.11 Vomiting without nausea (principal); R07.9 Chest pain, unspecified; I12.9 Hypertensive chronic kidney disease with stage 1 through stage 4 chronic kidney disease, or unspecified chronic kidney disease; N18.9 Chronic kidney disease, unspecified
CPT/HCPCS: 36415; 71045; 80053; 83690; 84484; 85025; 85610; 93005; 96374; 99285; J2405

== ENCOUNTER 2024-06-19 21:28 | Emergency (ER) | payer MEDICARE, MEDICAID, SELFPAY ==
--- NOTE | 2024-06-19 21:30 | XRR_ITS ---
PROCEDURE INFORMATION: Exam: XR Chest Exam date and time: 06/19/2024 9:42 PM Age: 54 years old Clinical indication: Pain; Chest pressure; Additional info: Chest pain TECHNIQUE: Imaging protocol: Radiologic exam of the chest. Views: 1 view. COMPARISON: CR XR chest 1V portable [id number] 04/13/2024 4:31 PM FINDINGS: Lungs: No consolidation. Pleural spaces: No pleural effusion. No pneumothorax. Heart/Mediastinum: No cardiomegaly. Bones/joints: No acute findings. XR/XR chest 1V portable [id number] IMPRESSION: No acute chest findings.
--- NOTE | 2024-06-19 21:30 | ECG_ITS ---
[facility]: [facility]24[facility]19 Pat Name: Catrina Whitney Department: Room: Gender: Female Cd Technician: : 1970 Requested By: Suhas Mcfarland Order Number: [id number] Cardoza MD: Althea Henson M.D. Measurements Intervals [place] Rate: 90 P: 51 TN: 142 QRS: 5 QRSD: 86 T: 57 QT: 338 QTc: 416 Interpretive Statements SINUS RHYTHM Compared to ECG 04/13/2024 16:23:47 No significant changes Electronically Signed On 06-22-2024 21:41:07 REFERRAL CLERK by Althea Henson M.D. [id number]
[2024-06-19 21:32] VITALS: BP 174/101; PULSE 87; RESP 18; O2SAT 98; BMI 29.9
--- NOTE | 2024-06-19 21:33 | W.ED.CHESTPA ---
HPI - Chest Pain General: Chief Complaint: Chest Pain Stated Complaint: CHEST PAIN Time Seen by Provider: 06/19/24 21:29 History of Present Illness: Patient presents to the ER by [facility] from home with a chief complaint of chest pain. Patient says she has had it all day long. Patient has had it before. Patient says it feels like heartburn. Patient does not have any cardiac history. Related Data Home Medications Medication Instructions Recorded Confirmed olopatadine 0.2 % eye drops 1 drp ophthalmic (eye) DAILY@1900 02/18/21 05/03/24 fluticasone propionate 50 2 spray intranasal DAILY 08/26/23 05/03/24 mcg/actuation nasal spray,suspension magnesium hydroxide 400 mg/5 mL 30 ml PO BID PRN Indigestion 10/25/23 05/03/24 oral suspension (Milk of Magnesia) meloxicam 15 mg tablet 15 mg PO DAILY PRN Pain 10/25/23 05/03/24 ondansetron 8 mg disintegrating 8 mg PO Q8H PRN Nausea And Vomiting 10/25/23 05/03/24 tablet Previous Rx's Medication Instructions Recorded mirtazapine 15 mg tablet 15 mg PO .qhs #30 tabs 11/17/23 sertraline 100 mg tablet 100 mg PO .at bed #30 tabs 11/17/23 acetaminophen 325 mg tablet 650 mg (2 x 325 mg) PO QID PRN 11/25/23 .COMPLEX #90 tabs polyethylene glycol 3350 17 See Rx Instructions .Route 12/09/23 gram/dose oral powder .COMPLEX #510 grams melatonin 10 mg tablet,extended 10 mg PO BEDTIME #30 tabs 12/24/23 release levetiracetam 1,000 mg tablet 1,000 mg PO BID #60 tabs 12/30/23 calcium 600 mg (as See Rx Instructions .Route 01/06/24 carbonate)-vitamin D3 5 mcg (200 .COMPLEX #100 tabs unit) tablet omega 4-btc-tye-fish oil 300 See Rx Instructions .Route 01/06/24 mg-1,000 mg capsule (Fish Oil) .COMPLEX #180 ea docusate sodium 100 mg capsule 100 mg PO BID #60 caps 02/01/24 lorazepam 2 mg tablet 2 mg PO BID #60 tabs 02/16/24 levocetirizine 5 mg tablet 5 mg PO DAILY allergy symptoms #60 03/01/24 tabs benzocaine 20 %-menthol 0.26 1 ea mucous membrane TID #11.9 03/17/24 %-zinc chloride 0.15 % mucosal gel grams (Orajel 3X Toothache-Gum) chlorhexidine gluconate 0.12 % 15 ml buccal BID PRN mouth sores 03/29/24 mouthwash #1,893 mL metoprolol tartrate 25 mg tablet 25 mg PO BID #60 tabs 04/05/24 ondansetron 4 mg disintegrating 4 mg PO Q6H PRN nausea and 04/13/24 tablet vomiting #14 tabs L norgest/E estradiol-E estrad 1 tab PO DAILY #182 ea 04/20/24 0.15 mg-30 mcg (84)/10 mcg(7) tabs,3mos (Daysee) quetiapine 100 mg tablet See Rx Instructions .Route 04/27/24 .COMPLEX #30 tabs quetiapine 300 mg tablet See Rx Instructions .Route 04/27/24 .COMPLEX #60 tabs calcium polycarbophil 625 mg 625 mg PO DAILY 30 days #30 tabs 05/24/24 tablet (Fiber-Lax) Allergies Allergy/AdvReac Type Severity Reaction Status Date / Time nystatin Allergy Unknown Verified 06/19/24 21:34 Review of Systems General: Reports: 10 or more systems reviewed and unremarkable except in HPI and below PFSH ED PFSH: Medical History Seizures Psychiatric care Bilateral renal cysts CKD (chronic kidney disease) Hypertension PTTD (posterior tibial tendon dysfunction) Drug induced akathisia Moderate intellectual disabilities Social History Smoking and tobacco/nicotine status: never used tobacco/nicotine Second hand smoke exposure: No Alcohol intake: never Substance/Drug Use: never Lives independently: No Housing: Other Details: intermediate Marital status: Single Current occupational status: disabled Current gender identity: Female Physical Exam Const: COMMON NORMALS: no acute distress, average body habitus, patient oriented x3, no limitations, healthy appearing, alert and well nourished HENMT: COMMON NORMALS: normocephalic, atraumatic, hearing grossly normal bilaterally, external ears normal, Normal external nose present and moist oral mucous membranes HEAD & SCALP: normocephalic and atraumatic NOSE: Normal external nose present EXTERNAL EAR: Yes external ears normal Neck/C-Spine: COMMON NORMALS: no JVD Chest: COMMONS NORMALS: normal inspection of the chest and normal palpation of entire chest wall Resp: COMMON NORMALS: normal respiratory effort, No retractions, No use of accessory muscles and clear to auscultation bilaterally AUSCULTATION: clear to auscultation bilaterally Cardio: COMMON NORMALS: no JVD, regular rate, regular rhythm, S1 normal heart sound present, S2 normal heart sound present, No gallops present (Cardio), No clicks present (Cardio), No murmurs present (Cardio) and No rub (Cardio) RATE: regular rate RHYTHM: regular rhythm HEART SOUNDS: S1 normal heart sound present and S2 normal heart sound present GI: COMMON NORMALS: Normal to inspection, nondistended, normoactive bowel sounds present, Soft to palpation, non-tender, No hepatosplenomegaly present and no masses PALPATION: Yes Soft to palpation and Yes No hepatosplenomegaly present Neuro: COMMON NORMALS: patient oriented x3 SENSORIUM/ORIENTATION: Yes alert Course Vital Signs: Vital signs: Vital Signs Pulse Rate 75 06/19/24 23:06 Respiratory Rate 21 H 06/19/24 23:06 Blood Pressure 138/88 06/19/24 23:06 Pulse Oximetry 98 06/19/24 23:06 Oxygen Delivery Me thod Room Air 06/19/24 21:59 MDM - Chest Pain Medical Decision Making Patient present with chest pain was worked up in standard chest pain fashion with serial EKGs, enzymes, chest x-ray all of which was essentially benign. Patient be discharged home Medical Records I reviewed the patient's medical records. Lab Data I reviewed the patient's lab results. 06/19/24 21:51 06/19/24 21:51 Radiology Impressions Chest X-Ray 06/19/24 21:30 IMPRESSION: No acute chest findings. Laboratory Results WBC 7.04 10^3/uL (3.29-11.43) 06/19/24 21:51 RBC 4.03 10^6/uL (3.85-5.65) 06/19/24 21:51 Hgb 12.70 g/dL (11.27-16.99) 06/19/24 21:51 Hct 39.5 % (36-47) 06/19/24 21:51 MCV 98.0 fl (85-98) 06/19/24 21:51 MCH 31.5 pg (27-33) 06/19/24 21:51 MCHC 32.2 g/dL (30-55) 06/19/24 21:51 RDW 13.2 % (12.1-15.1) 06/19/24 21:51 Plt Count 220 10^3/cmm (157-399) 06/19/24 21:51 MPV 10.9 fL (7.4-10.4) H 06/19/24 21:51 Neut % (Auto) 62.8 % 06/19/24 21:51 Lymph % (Auto) 26.0 % 06/19/24 21:51 [place] % (Auto) 7.5 % 06/19/24 21:51 Eos % (Auto) 2.6 % 06/19/24 21:51 Baso % (Auto) 0.7 % 06/19/24 21:51 Neut # (Auto) 4.42 10^3/uL (1.8-7.7) 06/19/24 21:51 Lymph # (Auto) 1.8 10^3/uL (0.8-4.8) 06/19/24 21:51 [place] # (Auto) 0.5 10^3/uL (0.2-0.9) 06/19/24 21:51 Eos # (Auto) 0.2 10^3/uL (0.0-0.8) 06/19/24 21:51 Baso # (Auto) 0.1 10^3/uL (0.0-0.1) 06/19/24 21:51 Nucleated RBC % (auto) 0 % 06/19/24 21:51 Nucleated RBCs # 0.0 /100WBC 06/19/24 21:51 Sodium 140 mmol/L (136-145) 06/19/24 21:51 Potassium 3.9 mmol/L (3.5-5.1) 06/19/24 21:51 Chloride 106 mmol/L (98-107) 06/19/24 21:51 Carbon Dioxide 24 mmol/L (22-29) 06/19/24 21:51 Anion Gap 13.9 (5-19) 06/19/24 21:51 BUN 14 mg/dL (6-20) 06/19/24 21:51 Creatinine 0.9 mg/dL (0.5-0.9) 06/19/24 21:51 GFR Calculation 65.8 mL/min (90-130) L 06/19/24 21:51 Glucose 120 mg/dL (65-115) H 06/19/24 21:51 Calculated Osmolality 292 mOsm/kg (285-295) 06/19/24 21:51 Calcium 8.2 mg/dL (8.5-10.5) L 06/19/24 21:51 Total Bilirubin 0.2 mg/dL (0.15-1.2) 06/19/24 21:51 AST 38 U/L (0-32) H 06/19/24 21:51 ALT 81 U/L (0-33) H 06/19/24 21:51 Alkaline Phosphatase 64 U/L (35-105) 06/19/24 21:51 Troponin T Baseline < 6 ng/L (0-10) 06/19/24 21:51 Troponin T 120 Minute 6.00 ng/L (0-10) 06/20/24 00:00 Delta Troponin T 0.87463 ABS# (0-10) 06/20/24 00:00 Total Protein 6.6 g/dL (6.6-8.7) 06/19/24 21:51 Albumin 4.1 g/dL (3.5-5.2) 06/19/24 21:51 Globulin 2.5 g/dL (1.3-4.6) 06/19/24 21:51 All radiology interpretation(s) finalized by discharge Discharge Plan Discharge Patient Disposition: Home Clinical Impression: Chest pain Qualifiers: Chest pain type: unspecified Qualified Code(s): R07.9 - Chest pain, unspecified Condition: Stable Prescriptions: No Action sertraline 100 mg tablet 100 mg PO .at bed Qty: 30 11RF mirtazapine 15 mg tablet 15 mg PO .qhs Qty: 30 11RF Orajel 3X Toothache-Gum 20-0.26-0.15 % gel 1 ea mucous membrane TID Qty: 11.9 0RF acetaminophen 325 mg tablet 650 mg PO QID PRN (Reason: .COMPLEX) Qty: 90 2RF Rx Instructions: 2 TAB PO Q6H PRN FOR fever > 100.4F OR PAIN polyethylene glycol 3350 17 gram/dose powder See Rx Instructions .ROUTE .COMPLEX Qty: 510 5RF Dose Instruction: MIX AND DRINK 17 GRAMS IN LIQUID DAILY NEEDED FOR CONSTIPATION Rx Instructions: MIX AND DRINK 17 GRAMS IN LIQUID DAILY NEEDED FOR CONSTIPATION melatonin 10 mg tablet extended release 10 mg PO BEDTIME Qty: 30 11RF levetiracetam 1,000 mg tablet 1,000 mg PO BID Qty: 60 5RF calcium carbonate-vitamin D3 600 mg-5 mcg (200 unit) tablet See Rx Instructions .ROUTE .COMPLEX Qty: 100 4RF Dose Instruction: TAKE ONE TABLET BY MOUTH EVERY DAY AT 8:00AM Rx Instructions: TAKE ONE TABLET BY MOUTH EVERY DAY AT 8:00AM omega 7-dkh-zds-fish oil [Fish Oil] 300-1,000 mg capsule See Rx Instructions .ROUTE .COMPLEX Qty: 180 4RF Dose Instruction: TAKE ONE CAPSULE BY MOUTH TWICE DAILY - 8:00AM AND 7:00PM Rx Instructions: TAKE ONE CAPSULE BY MOUTH TWICE DAILY - 8:00AM AND 7:00PM docusate sodium 100 mg capsule 100 mg PO BID Qty: 60 11RF lorazepam 2 mg tablet 2 mg PO BID Qty: 60 5RF levocetirizine 5 mg tablet 5 mg PO DAILY Qty: 60 5RF chlorhexidine gluconate 0.12 % mouthwash 15 ml buccal BID PRN (Reason: mouth sores) Qty: 1893 0RF metoprolol tartrate 25 mg tablet 25 mg PO BID Qty: 60 5RF L norgest/e.estradiol-e.estrad [Daysee] 0.15 mg-30 mcg (84)/10 mcg (7) tablets,dose pack,3 month 1 tab PO DAILY Qty: 182 3RF Rx Instructions: skip placebo week quetiapine 300 mg tablet See Rx Instructions .ROUTE .COMPLEX Qty: 60 5RF Dose Instruction: TAKE ONE TABLET BY MOUTH TWICE DAILY FOR AGITATION AND MOOD Rx Instructions: TAKE ONE TABLET BY MOUTH TWICE DAILY FOR AGITATION AND MOOD quetiapine 100 mg tablet See Rx Instructions .ROUTE .COMPLEX Qty: 30 5RF Dose Instruction: TAKE ONE TABLET BY MOUTH EVERY DAY Rx Instructions: TAKE ONE TABLET BY MOUTH EVERY DAY calcium polycarbophil [Fiber-Lax] 625 mg tablet 625 mg PO DAILY 30 Days Qty: 30 11RF olopatadine 0.2 % drops 1 drp ophthalmic (eye) DAILY@1900 fluticasone propionate 50 mcg/actuation spray,suspension 2 spray intranasal DAILY meloxicam 15 mg tablet 15 mg PO DAILY PRN (Reason: Pain) ondansetron 8 mg tablet,disintegrating 8 mg PO Q8H PRN (Reason: Nausea And Vomiting) Milk of Magnesia 400 mg/5 mL suspension 30 ml PO BID PRN (Reason: Indigestion) ondansetron 4 mg tablet,disintegrating 4 mg PO Q6H PRN (Reason: nausea and vomiting) Qty: 14 0RF Discharge Orders: Discharge ED (Routine); Ordered 06/20/24 Ordered By: Suhas Mcfarland Referrals: Tameka Saucedo FNP-C [Primary Care Provider] - 1 week Patient Instructions: Chest Pain (DC) Activity Restrictions/Additional Instructions: Your evaluation in the ER did not show any acute cardiac cause of your chest pain. Your c chest pain is felt to be noncardiac in nature. Please follow-up with your PCP within the next 7 days for further evaluation treatment. Coding Level of Care Code ED Corporate Pilot for Elder Luna
[2024-06-19 21:59] VITALS: BP 138/92; PULSE 74; O2SAT 98
[2024-06-19 22:02] LABS: Basophils # 0.1 10^3/uL (0.0-0.1); Basophils % 0.7 %; Eosinophils # 0.2 10^3/uL (0.0-0.8); Eosinophils % 2.6 %; Hematocrit 39.5 % (36-47); Lymphocytes # 1.8 10^3/uL (0.8-4.8); Mean Corpuscular HGB Conc 32.2 g/dL (30-55); Mean Corpuscular Hemoglobin 31.5 pg (27-33); Mean Platelet Volume 10.9 fL (7.4-10.4); Monocytes # 0.5 10^3/uL (0.2-0.9); Monocytes % 7.5 %; Neutrophils # 4.42 10^3/uL (1.8-7.7); Neutrophils % 62.8 %; Nucleated Red Blood Cells % 0 %; Platelet Count 220 10^3/cmm (157-399); Red Blood Count 4.03 10^6/uL (3.85-5.65); Red Cell Distribution Width 13.2 % (12.1-15.1); White Blood Count 7.04 10^3/uL (3.29-11.43)
[2024-06-19 22:23] LABS: Troponin(5th) Baseline < 6 ng/L (0-10)
[2024-06-19 22:25] LABS: Alanine Aminotransferase 81 U/L (0-33); Albumin Level 4.1 g/dL (3.5-5.2); Alkaline Phosphatase 64 U/L (35-105); Anion Gap 13.9 (5-19); Aspartate Amino Transferase 38 U/L (0-32); Blood Urea Nitrogen 14 mg/dL (6-20); Calcium 8.2 mg/dL (8.5-10.5); Carbon Dioxide 24 mmol/L (22-29); Chloride 106 mmol/L (98-107); Creatinine Clr Calc Pharmacy 77.1765; Globulin 2.5 g/dL (1.3-4.6); Glomerular Filtration Rate 65.8 mL/min (90-130); Glucose 120 mg/dL (65-115); Osmolality Calculated 292 mOsm/kg (285-295); Potassium 3.9 mmol/L (3.5-5.1); Sodium 140 mmol/L (136-145); Total Bilirubin 0.2 mg/dL (0.15-1.2); Total Protein 6.6 g/dL (6.6-8.7)
[2024-06-19 23:06] VITALS: BP 138/88; PULSE 75; RESP 21; O2SAT 98
--- NOTE | 2024-06-19 23:30 | ECG_ITS ---
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
[2024-06-20] VITALS: BP 128/91; PULSE 87; O2SAT 100
[2024-06-20 00:31] LABS: Troponin 5 2HR Delta 0.00001 ABS# (0-10)
[2024-06-20 01:08] VITALS: BP 143/91; PULSE 87; O2SAT 98
--- NOTE | 2024-06-20 01:11 | PC.NURSE ---
Pts guardian Radha Fuller was provided with an update on patients discharge.
== END 2024-06-20 01:00 | disposition home or self-care (01) ==
PROVIDERS: Emergency Provider Emergency Medicine; PCP Nurse Practitioner Family
DX: R07.9 Chest pain, unspecified (principal); I12.9 Hypertensive chronic kidney disease with stage 1 through stage 4 chronic kidney disease, or unspecified chronic kidney disease; N18.9 Chronic kidney disease, unspecified
CPT/HCPCS: 36415; 71045; 80053; 84484; 85025; 93005; 99285

== ENCOUNTER 2024-06-27 09:34 | Outpatient (CLI) | payer MEDICARE, MEDICAID, SELFPAY ==
--- NOTE | 2024-06-27 09:40 | MM_ITS ---
WS: [id number] BILATERAL 3D TOMOSYNTHESIS DIGITAL SCREENING MAMMOGRAPHY WITH CAD CLINICAL INFORMATION: SCREENING HISTORY: Screening mammogram. No current complaints. COMPARISON: 2022 TECHNIQUE: Bilateral CC and MLO views. FINDINGS: The breasts are composed of heterogeneous fibroglandular density tissue, which can limit the detectio n of small underlying mass lesions. No suspicious mass, asymmetry, calcifications, or architectural d istortion. No evidence of malignancy. MM/MM [facility] tomosynthesis [id number] IMPRESSION: DENSITY: The breasts are heterogeneously dense, which may obscure small masses. BI-RADS: 1 - Negative FOLLOW UP: 1 Year Follow-up Recommend return to annual screening mammography.
== END 2024-06-27 09:35 | disposition home or self-care (01) ==
PROVIDERS: PCP Nurse Practitioner Family; Visit Provider Nurse Practitioner Family
DX: Z12.31 Encounter for screening mammogram for malignant neoplasm of breast (principal); R92.333 Mammographic heterogeneous density, bilateral breasts
CPT/HCPCS: 77063; 77067

== ENCOUNTER → 2024-07-06 10:34 | Outpatient (BNVA) | payer MEDICARE, MEDICAID, SELFPAY | PROVIDERS: PCP Nurse Practitioner Family; Visit Provider Nurse Practitioner Family | DX: R39.9 Unspecified symptoms and signs involving the genitourinary system (principal) | CPT/HCPCS: 81000; 87086 ==

== ENCOUNTER → 2024-08-04 15:23 | Outpatient (BNVA) | payer MEDICARE, MEDICAID, OTHER, SELFPAY | PROVIDERS: PCP Nurse Practitioner Family; Visit Provider Clinical Nurse Specialist Adult Health | DX: J02.9 Acute pharyngitis, unspecified (principal) | CPT/HCPCS: 87880 ==

== ENCOUNTER 2024-09-10 11:16 | Emergency (ER) | payer MEDICARE, MEDICAID, SELFPAY ==
[2024-09-10 11:23] VITALS: BP 140/92; PULSE 88; RESP 16; TEMP 36.8; O2SAT 99; BMI 28.3
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
--- NOTE | 2024-09-10 12:45 | PC.PHAR ---
Pt is resident at [facility] [phone].
--- NOTE | 2024-09-10 13:06 | PC.NURSE ---
JOEL CHRISTIANSON RN CONTACTED FOR FORENSIC PHOTOS. AT BEDSIDE AT 1305.
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
[2024-09-10] MEDS: acetaminophen 325 mg Tablet 650 MG PO (14:21)
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
--- NOTE | 2024-09-10 15:28 | P.MISC_ITS ---
Miscellaneous Note 2 Purpose of Documentation: This is a continuation of the note from 09/10/2024 [id number].
--- NOTE | 2024-09-10 15:28 | PM.MISC ---
Miscellaneous Note Purpose of Documentation: This is a continuation of the note from 09/10/2024 [id number].
== END 2024-09-10 15:15 | disposition home or self-care (01) ==
PROVIDERS: Emergency Provider Emergency Medicine; PCP Nurse Practitioner Family
DX: S09.8XXA Other specified injuries of head, initial encounter (principal); S05.12XA Contusion of eyeball and orbital tissues, left eye, initial encounter; I12.9 Hypertensive chronic kidney disease with stage 1 through stage 4 chronic kidney disease, or unspecified chronic kidney disease; N18.9 Chronic kidney disease, unspecified; S40.022A Contusion of left upper arm, initial encounter; S40.021A Contusion of right upper arm, initial encounter; S90.32XA Contusion of left foot, initial encounter; S90.31XA Contusion of right foot, initial encounter; Y04.8XXA Assault by other bodily force, initial encounter
CPT/HCPCS: 70450; 70486; 72125; 99284; J9999

== ENCOUNTER → 2024-11-21 10:48 | Outpatient (BNVA) | payer MEDICARE, MEDICAID, OTHER, SELFPAY | PROVIDERS: PCP Nurse Practitioner Family; Visit Provider Nurse Practitioner Family | DX: J02.9 Acute pharyngitis, unspecified (principal) | CPT/HCPCS: 87071; 87880 ==

== ENCOUNTER → 2024-12-11 10:49 | Outpatient (BNVA) | payer MEDICARE, MEDICAID, SELFPAY | PROVIDERS: PCP Nurse Practitioner Family; Visit Provider Nurse Practitioner Family | DX: M79.641 Pain in right hand (principal); M54.50 Low back pain, unspecified; Z79.899 Other long term (current) drug therapy | CPT/HCPCS: 73130; 81000; 81003; 87086 ==

== ENCOUNTER 2025-01-08 13:39 | Emergency (ER) | payer MEDICARE, MEDICAID, SELFPAY ==
[2025-01-08 13:53] VITALS: BP 165/85; PULSE 74; TEMP 36.8; O2SAT 100; BMI 30.9
--- NOTE | 2025-01-08 14:35 | CTR_ITS ---
PROCEDURE INFORMATION: Exam: CT Head Without Contrast Exam date and time: 01/08/2025 3:01 PM Age: 54 years old Clinical indication: Pain; Headache not specified; Additional info: Headache HX of brain bleed TECHNIQUE: Imaging protocol: Computed tomography of the head without contrast. Radiation optimization: All CT scans at this facility use at least one of these dose optimization techniques: automated exposure control; mA and/or kV adjustment per patient size (includes targeted exams where dose is matched to clinical indication); or iterative reconstruction. 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 Nodularity seen along the post of the lateral ventricles may represent the presence of heterotopic ayon matter. No acute confluent lobar ischemic infarct. No acute intracranial hemorrhage. Cerebral ventricles: See Brain finding. Paranasal sinuses: No fluid levels. Mastoid air cells: Visualized mastoid air cells are well aerated. Bones: No acute calvarial fracture. Soft tissues: Visualized soft tissues are unremarkable. CT/CT head wo con* [id number] IMPRESSION: 1. No acute intracranial abnormality. If symptoms persist, consider further evaluation with MRI, if there are no contraindications to obtaining a MRI scan. 2. Congenital brain anomalies as described.
[2025-01-08 15:04] LABS: Basophils # 0.1 10^3/uL (0.0-0.1); Basophils % 0.6 %; Eosinophils # 0.2 10^3/uL (0.0-0.8); Hematocrit 39.3 % (36-47); Lymphocytes # 1.8 10^3/uL (0.8-4.8); Lymphocytes % 21.9 %; Mean Corpuscular HGB Conc 31.8 g/dL (30-55); Mean Corpuscular Hemoglobin 31.6 pg (27-33); Mean Corpuscular Volume 99.2 fl (85-98); Mean Platelet Volume 10.9 fL (7.4-10.4); Monocytes # 0.6 10^3/uL (0.2-0.9); Monocytes % 6.9 %; Neutrophils # 5.66 10^3/uL (1.8-7.7); Neutrophils % 68.2 %; Nucleated Red Blood Cells % 0 %; Platelet Count 226 10^3/cmm (157-399); Red Blood Count 3.96 10^6/uL (3.85-5.65); Red Cell Distribution Width 13.2 % (12.1-15.1)
[2025-01-08 15:31] LABS: Alanine Aminotransferase 18 U/L (0-33); Albumin Level 3.7 g/dL (3.5-5.2); Alkaline Phosphatase 59 U/L (35-105); Anion Gap 16.1 (5-19); Aspartate Amino Transferase 15 U/L (0-32); Blood Urea Nitrogen 16 mg/dL (6-20); Calcium 9.1 mg/dL (8.5-10.5); Carbon Dioxide 21 mmol/L (22-29); Chloride 106 mmol/L (98-107); Creatinine Clr Calc Pharmacy 70.5896; Globulin 3.2 g/dL (1.3-4.6); Glomerular Filtration Rate 58.2 mL/min (90-130); Glucose 83 mg/dL (65-115); NT Pro B Type Natriuretic Pept 332 pg/mL (0-125); Osmolality Calculated 288 mOsm/kg (285-295); Potassium 4.1 mmol/L (3.5-5.1); Sodium 139 mmol/L (136-145); Total Bilirubin 0.3 mg/dL (0.15-1.2); Total Protein 6.9 g/dL (6.6-8.7)
[2025-01-08 16:28] VITALS: BP 143/99; PULSE 71; O2SAT 99
[2025-01-08] MEDS: ketorolac 30 mg/mL INJ IM (16:57)
[2025-01-08 17:00] VITALS: BP 171/104; PULSE 83; O2SAT 99
[2025-01-08 17:30] VITALS: BP 141/99; PULSE 68; O2SAT 100
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
[2025-01-08 18:04] VITALS: BP 155/115; PULSE 94; O2SAT 100
== END 2025-01-08 18:05 | disposition home or self-care (01) ==
PROVIDERS: Emergency Provider Registered Nurse; PCP Nurse Practitioner Family
DX: R51.9 Headache, unspecified (principal); R60.9 Edema, unspecified
CPT/HCPCS: 36415; 70450; 80053; 83880; 85025; 96372; 99284; J1885

== ENCOUNTER → 2025-01-15 13:13 | Outpatient (BNVA) | payer MEDICARE, MEDICAID, SELFPAY | PROVIDERS: PCP Nurse Practitioner Family; Visit Provider Nurse Practitioner Family | DX: I10 Essential (primary) hypertension (principal); M79.89 Other specified soft tissue disorders | CPT/HCPCS: 80053; 81000; 83880; 85025 ==

== ENCOUNTER → 2025-01-24 14:53 | Outpatient (BNVA) | payer MEDICARE, MEDICAID, SELFPAY | PROVIDERS: PCP Nurse Practitioner Family; Visit Provider Psychiatry & Neurology Neurology | DX: R56.9 Unspecified convulsions (principal); R51.9 Headache, unspecified; E55.9 Vitamin D deficiency, unspecified; E53.8 Deficiency of other specified B group vitamins; S06.5XAA Traumatic subdural hemorrhage with loss of consciousness status unknown, initial encounter; R29.90 Unspecified symptoms and signs involving the nervous system; X58.XXXA Exposure to other specified factors, initial encounter | CPT/HCPCS: 99212 ==

== ENCOUNTER → 2025-01-25 07:59 | Outpatient (BNVA) | payer MEDICARE, MEDICAID, SELFPAY | PROVIDERS: PCP Nurse Practitioner Family; Visit Provider Psychiatry & Neurology Neurology | DX: E53.8 Deficiency of other specified B group vitamins (principal); R56.9 Unspecified convulsions; R51.9 Headache, unspecified; E55.9 Vitamin D deficiency, unspecified | CPT/HCPCS: 82306; 82607; 82746; 83921 ==

== ENCOUNTER → 2025-01-31 10:28 | Outpatient (BNVA) | payer MEDICARE, MEDICAID, SELFPAY | PROVIDERS: PCP Nurse Practitioner Family; Visit Provider Nurse Practitioner Family | DX: R39.9 Unspecified symptoms and signs involving the genitourinary system (principal) | CPT/HCPCS: 81000 ==

== ENCOUNTER → 2025-02-06 08:45 | Outpatient (BNVA) | payer MEDICARE, MEDICAID, OTHER, SELFPAY | PROVIDERS: PCP Nurse Practitioner Family; Visit Provider Clinical Nurse Specialist Adult Health | DX: Z79.899 Other long term (current) drug therapy (principal) | CPT/HCPCS: 80061; 83036 ==

== ENCOUNTER → 2025-04-09 10:26 | Outpatient (BNVA) | payer MEDICARE, MEDICAID, SELFPAY | PROVIDERS: PCP Nurse Practitioner Family; Visit Provider Clinical Nurse Specialist Adult Health | DX: N30.00 Acute cystitis without hematuria (principal) | CPT/HCPCS: 81000; 87086 ==

== ENCOUNTER → 2025-04-17 14:03 | Outpatient (BNVA) | payer MEDICARE, MEDICAID, SELFPAY | PROVIDERS: PCP Nurse Practitioner Family; Visit Provider Nurse Practitioner Family | DX: R39.9 Unspecified symptoms and signs involving the genitourinary system (principal) | CPT/HCPCS: 81000; 87086 ==

== ENCOUNTER → 2025-05-16 10:53 | Outpatient (BNVA) | payer MEDICARE, MEDICAID, OTHER, SELFPAY | PROVIDERS: PCP Nurse Practitioner Family; Visit Provider Nurse Practitioner Family | DX: R30.0 Dysuria (principal) | CPT/HCPCS: 81000 ==

== ENCOUNTER 2025-06-17 13:53 | Emergency (ER) | payer MEDICARE, MEDICAID, SELFPAY ==
[2025-06-17 13:54] VITALS: BP 156/89; PULSE 76; RESP 16; TEMP 37.2; O2SAT 97; BMI 29.9
--- OUTSIDE RECORDS SUMMARY | 2025-06-17 13:56 | XMS_ITS | Clinical Summary ---
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 Active CALCIUM POLYCARBOPHIL (FIBERCON ORAL) Take by mouth. Active QUEtiapine (SEROQUEL) 200 mg Oral tablet Take 200 mg by mouth 2 times daily. Active metoprolol tartrate (LOPRESSOR) 50 mg Oral tablet Take 50 mg by mouth 2 times daily. Active LORazepam (ATIVAN) 2 mg Oral tablet Take 2 mg by mouth every 6 hours as needed. Active Docusate Sodium 100 mg Oral Tab Take by mouth. Active zolpidem (AMBIEN) 5 mg Oral tablet Take 5 mg by mouth nightly as needed. Active medroxyPROGESTERo ne (DEPO-PROVERA) 150 mg/mL IM Susp Inject 150 mg by intramuscular injection one time only. Active CALCIUM CARBONATE/MAG HYDROX (MYLANTA ORAL) Take by mouth. Activ e LOPERAMIDE HCL (LOPERAMIDE ORAL) Take by mouth. Active acetaminophen (TYLENOL) 325 mg Oral tablet Take 325 mg by mouth every 4 hours as needed. Active sertraline (ZOLOFT) 50 mg Oral tablet Take 50 mg by mouth daily. 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 Gender Identity Not on file Sexual Orientation Not on file Occupation Industry Job Start Date Job End Date Not on file Not on file Not on file Not on file Last Filed Vital Signs Vital Sign Reading Time Taken Comments Blood Pressure 119/82 10/19/2012 2:17 PM INTERNET SALES REPRESENTATIVE Pulse 66 10/19/2012 2:17 PM INTERNET SALES REPRESENTATIVE Temperature - - Respiratory Rate - - Oxygen Saturation 100% 10/19/2012 2:17 PM INTERNET SALES REPRESENTATIVE Inhaled Oxygen Concentration - - Weight 64.4 kg (142 lb) 10/19/2012 2:17 PM INTERNET SALES REPRESENTATIVE Height 162.6 cm (5' 4 ) 10/19/2012 2:17 PM INTERNET SALES REPRESENTATIVE Body Mass Index 24.37 10/19/2012 2:17 PM INTERNET SALES REPRESENTATIVE Plan of Treatment Health Maintenance Due Date Last Done Comments DTAP/TDAP/TD VACCINES (1 - Tdap) 1991 HEPATITIS B VACCINES (1 of 3 - 19+ 3-dose series) 05/16 HPV/Cotest (21-29) 1993 CERVICAL CANCER SCREENING 2002 HPV/Cotest (30-65) 2002 PAP SMEAR 2002 BREAST CANCER SCREENING 2012 COLORECTAL SCREENING 2017 Colorectal Cancer Screening 2017 FIT-DNA Q 3 years 2017 FIT/FOBT Q 1 year 2017 Flex Sig/CT Colonography Q 5 years 2017 ZOSTER VACCINE (1 of 2) 2022 INFLUENZA VACCINE (#1) 2025 Insurance [facility] [place]ICAID [place] Member Subscriber Plan / Payer (Ef fective 2011-Present) Name:Catrina Whitney Relation to Subscriber:Self Name:Catrina Whitney Payer ID:[id number] Group ID:Not on file Type:Medicaid Address: [address] MEDICAID DENTAL
--- OUTSIDE RECORDS SUMMARY | 2025-06-17 13:56 | XMS_ITS | Encounter Summary ---
Author Organization [facility] Address [address] [place] [address] Care Team Providers Care Recordings Librarian Name Role Phone Unavailable Primary Care Provider Unavailabl e Encounter Details Date Type Department Care Team (Late st Contact Info) Description 10/19/[address] 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 Gender Identity Not on file Sexual Orientation Not on file Occupation Industry Job Start Date Job End Date Not on file Not on file Not on file Not on file documented as of this encounter Plan of Treatment Not on file documented as of this encounter Results * XR PANOREX (11/28/2012 8:50 AM CDT) Anatomical Region Laterality Modality Head Computed Radiogr aphy Narrative 12/11/2012 10:26 PM CDT In the notes Procedure Note Remy Love Jr., DMD - 12/11/2012 In the notes us Remy Love Jr., DMD DIAGNOSTIC IMAGING ORDERABLES Final Result documented in this encounter Visit Diagnoses Diagnosis Other disorders of bone and cartilage(733.99)- Primary Other disorders of bone and cartilage documented in this encounter
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
--- NOTE | 2025-06-17 14:00 | W.ED.SEIZURE ---
HPI - Seizure General: Chief Complaint: Seizure Stated Complaint: seizure Time Seen by Provider: 06/17/25 14:00 Source: patient and other (care staff) Mode of arrival: EMS Limitations: other (hx of TBI) History of Present Illness: HPI Narrative: Patient is a 55-year-old female presents to ED today via EMS from her residential facility for evaluation of a seizure. Two of her care staff arrived shortly to provide history. Patient has a history of a previous TBI and is overall a poor historian. Care staff states she is at her mental baseline. She has a history of epilepsy and takes 1000 mg of Keppra twice daily. She used to see Dr. Ortega but when he left she is now going to be seeing Dr. Cameron and has an appointment with her scheduled in August. She has not had any recent missed doses of Keppra. Care staff states her last seizure was over a year ago. Seizure was witnessed. There were no injuries noted. Vital signs are stable upon arrival. MD complaint: seizure Onset (ago): hour(s) Description of Episode: tonic-clonic movement -: minutes(s) Witnessed: Yes - by Other (care staff) Trauma: No Seizure History: Yes Place: Home Possible Precipitating Event: none Associated symptoms: Reports no associated symptoms Treatments prior to arrival: none Related Data Home Medications ?Medication ?Instructions ?Recorded ?Confirmed olopatadine 0.2 % eye drops 1 drp ophthalmic (eye) DAILY@1900 02/18/21 06/17/25 calcium 600 mg (as 1 tab PO .@8AM 06/17/25 06/17/25 carbonate)-vitamin D3 5 mcg (200 unit) tablet calcium polycarbophil 625 mg 625 mg PO DAILY PRN Constipation 06/17/25 06/17/25 tablet (Fiber-Lax) ketoconazole 2 % topical cream 1 applic topical BID PRN Skin 06/17/25 06/17/25 Irritation levetiracetam 1,000 mg tablet 1,000 mg PO BID 06/17/25 06/17/25 potassium chloride 10 mEq 10 meq PO .EVERY OTHER DAY only 06/17/25 06/17/25 tablet,extended release (Klor-Con) with lasix quetiapine 100 mg tablet 100 mg PO .@3PM 06/17/25 06/17/25 Previous Rx's ?Medication ?Instructions ?Recorded omega 2-whb-mae-fish oil 300 See Rx Instructions .Route 01/09/25 mg-1,000 mg capsule (Fish Oil) .COMPLEX #180 ea melatonin 10 mg tablet,extended 10 mg PO BEDTIME #30 tabs 01/11/25 release fluticasone propionate 50 2 spray intranasal DAILY #16 grams 03/13/25 mcg/actuation nasal spray,suspension metoprolol tartrate 25 mg tablet 25 mg PO BID #60 tabs 04/17/25 lorazepam 2 mg tablet 2 mg PO BID #60 tabs 05/03/25 mirtazapine 15 mg tablet 15 mg PO BEDTIME #30 tabs 05/03/25 quetiapine 300 mg tablet 300 mg PO BID agitation and mood 05/03/25 #60 tabs sertraline 100 mg tablet 100 mg PO BEDTIME #30 tabs 05/03/25 levocetirizine 5 mg tablet 5 mg PO DAILY allergy symptoms #60 05/10/25 tabs L norgest/E estradiol-E estrad 1 tab PO DAILY #182 ea 05/15/25 0.15 mg-30 mcg (84)/10 mcg(7) tabs,3mos (Daysee) acetaminophen 325 mg tablet 650 mg (2 x 325 mg) PO QID PRN 05/15/25 fever > 100.4F OR PAIN #60 tabs benzocaine 20 %-menthol 0.26 1 ea mucous membrane TID PRN mouth 05/15/25 %-zinc chloride 0.15 % mucosal gel sores #7 grams (Orajel 3X Toothache-Gum) pugzkbhedtylgxs-dpukmokwqeyoa-IE 1 20 ml PO Q4H PRN Cough #118 mL 05/15/25 mg-2.5 mg-5 mg/5 mL oral solution (Dimetapp DM Cold-Cough (PE)) chlorhexidine gluconate 0.12 % 15 ml buccal BID PRN mouth sores 05/15/25 mouthwash #1,893 mL docusate sodium 100 mg capsule 100 mg PO BID #60 caps 05/15/25 furosemide 20 mg tablet 20 mg PO .every other day #30 tabs 05/15/25 magnesium hydroxide 400 mg/5 mL 30 ml PO BID PRN Indigestion #355 05/15/25 oral suspension (Milk of Magnesia) mL ondansetron 4 mg disintegrating 4 mg PO Q6H PRN nausea and 05/15/25 tablet vomiting #14 tabs polyethylene glycol 3350 17 See Rx Instructions .Route 05/15/25 gram/dose oral powder .COMPLEX #510 grams Allergies Allergy/AdvReac Type Severity Reaction Status Date / Time nystatin Allergy Unknown Verified 05/03/25 09:58 Review of Systems General: Reports: ROS unobtainable due to medical condition, ROS unobtainable due to mental status and Other (hx of TBI-ROS felt to be unreliable) PFSH ED PFSH: Medical History Seizures Psychiatric care Bilateral renal cysts CKD (chronic kidney disease) Hypertension PTTD (posterior tibial tendon dysfunction) Drug induced akathisia Social History Smoking and tobacco/nicotine status: never used tobacco/nicotine Second hand smoke exposure: No Alcohol intake: never Substance/Drug Use: never Lives independently: No Housing: Other Details: residential Marital status: Single Current occupational status: disabled Current gender identity: Female Physical Exam Const: COMMON NORMALS: no acute distress, average body habitus, healthy appearing, alert and well nourished GENERAL APPEARANCE: cooperative OTHER: at mental baseline per care staff HENMT: COMMON NORMALS: normocephalic and atraumatic HEAD & SCALP: normal to inspection, normocephalic and atraumatic Neck/C-Spine: COMMON NORMALS: full ROM CERVICAL SPINE: No Cervical spine tenderness Resp: COMMON NORMALS: normal respiratory effort and clear to auscultation bilaterally AUSCULTATION: clear to auscultation bilaterally Cardio: COMMON NORMALS: regular rate and regular rhythm RATE: regular rate RHYTHM: regular rhythm Back/Pelvis: COMMON NORMALS: thoracic and lumbar spine normal to inspection and no thoracic nor lumbar tenderness Extremity: GENERAL: Yes normal exam except as noted Neuro: COMMON NORMALS: moves all extremities, no focal motor deficits and no sensory deficits noted SENSORIUM/ORIENTATION: Yes alert Skin: COMMON NORMALS: no rashes or lesions noted GENERAL SKIN EXAM: no rashes or lesions noted TRAUMA: no lacerations or abrasions Course Vital Signs: Vital signs: Vital Signs Temperature 99.0 F 06/17/25 13:54 Pulse Rate 76 06/17/25 15:30 Respiratory Rate 16 06/17/25 15:30 Blood Pressure 151/86 06/17/25 14:18 Pulse Oximetry 98 06/17/25 15:30 Oxygen Delivery Me thod Room Air 06/17/25 15:30 MDM - Seizure MDM Narrative Medical decision making narrative: Patient not had any further seizure activity while here. Her vital signs are stable. Care staff states she is at her mental baseline. Workup here overall is unremarkable. She did not have any injuries on her seizure today. It has been over a year since her last seizure therefore I do not feel we need to adjust her epileptic medications today. Continue plan to follow-up with neurology as scheduled in August. Recommend she does contact neurology or return to the emergency department for onset of further episodes of seizures and at that time we can determine whether we need to adjust her medications. Differential Diagnosis Seizure Differential Diagnosis: Likely intractable seizure disorder, focal seizure, generalized seizure and epileptic seizure Lab Data 06/17/25 14:09 06/17/25 14:09 Labs: Radiology Impressions Chest X-Ray 06/17/25 14:02 IMPRESSION: No acute cardiopulmonary process. Laboratory Results WBC 6.48 10^3/uL (3.29-11.43) 06/17/25 14:09 RBC 4.30 10^6/uL (3.85-5.65) 06/17/25 14:09 Hgb 13.80 g/dL (11.27-16.99) 06/17/25 14:09 Hct 41.9 % (36-47) 06/17/25 14:09 MCV 97.4 fl (85-98) 06/17/25 14:09 MCH 32.1 pg (27-33) 06/17/25 14:09 MCHC 32.9 g/dL (30-55) 06/17/25 14:09 RDW 13.0 % (12.1-15.1) 06/17/25 14:09 Plt Count 237 10^3/cmm (157-399) 06/17/25 14:09 MPV 10.8 fL (7.4-10.4) H 06/17/25 14:09 Neut % (Auto) 63.6 % 06/17/25 14:09 Lymph % (Auto) 26.2 % 06/17/25 14:09 [place] % (Auto) 7.3 % 06/17/25 14:09 Eos % (Auto) 2.0 % 06/17/25 14:09 Baso % (Auto) 0.6 % 06/17/25 14:09 Neut # (Auto) 4.12 10^3/uL (1.8-7.7) 06/17/25 14:09 Lymph # (Auto) 1.7 10^3/uL (0.8-4.8) 06/17/25 14:09 [place] # (Auto) 0.5 10^3/uL (0.2-0.9) 06/17/25 14:09 Eos # (Auto) 0.1 10^3/uL (0.0-0.8) 06/17/25 14:09 Baso # (Auto) 0.0 10^3/uL (0.0-0.1) 06/17/25 14:09 Nucleated RBC % (auto) 0 % 06/17/25 14:09 Nucleated RBCs # 0.0 /100WBC 06/17/25 14:09 Sodium 141 mmol/L (136-145) 06/17/25 14:09 Potassium 3.9 mmol/L (3.5-5.1) 06/17/25 14:09 Chloride 105 mmol/L (98-107) 06/17/25 14:09 Carbon Dioxide 25 mmol/L (22-29) 06/17/25 14:09 Anion Gap 14.9 (5-19) 06/17/25 14:09 BUN 13 mg/dL (6-20) 06/17/25 14:09 Creatinine 0.9 mg/dL (0.5-0.9) 06/17/25 14:09 GFR Calculation 65.5 mL/min (90-130) L 06/17/25 14:09 Glucose 138 mg/dL (65-115) H 06/17/25 14:09 Calculated Osmolality 294 mOsm/kg (285-295) 06/17/25 14:09 Calcium 9.6 mg/dL (8.5-10.5) 06/17/25 14:09 Total Bilirubin 0.2 mg/dL (0.15-1.2) 06/17/25 14:09 AST 18 U/L (0-32) 06/17/25 14:09 ALT 20 U/L (0-33) 06/17/25 14:09 Alkaline Phosphatase 71 U/L (35-105) 06/17/25 14:09 Total Protein 7.8 g/dL (6.6-8.7) 06/17/25 14:09 Albumin 4.4 g/dL (3.5-5.2) 06/17/25 14:09 Globulin 3.4 g/dL (1.3-4.6) 06/17/25 14:09 Urine Color Yellow (Yellow) 06/17/25 14:54 Urine Appearance Cloudy (CLEAR) A 06/17/25 14:54 Urine pH 7.0 (5-7) 06/17/25 14:54 Ur Specific [place] 1.006 (1.005-1.030) 06/17/25 14:54 Urine Protein Negative (Negative) 06/17/25 14:54 Urine Glucose (UA) Negative (Normal) 06/17/25 14:54 Urine Ketones Negative (Negative) 06/17/25 14:54 Urine Blood Non-haemolysed trace (Negative) 06/17/25 14:54 Urine Nitrate Negative (Negative) 06/17/25 14:54 Urine Bilirubin Negative (Negative) 06/17/25 14:54 Urine Urobilinogen 0.2 mg/dL (Negative) 06/17/25 14:54 Ur Leukocyte Esterase Trace (Negative) A 06/17/25 14:54 Urine RBC 11-20 /hpf (0-2) H 06/17/25 14:54 Urine WBC 11-20 /hpf (0-5) H 06/17/25 14:54 Ur Squamous Epith Cells 11-20 /hpf (0-5) H 06/17/25 14:54 Amorphous Sediment Not Reportable 06/17/25 14:54 Urine Bacteria 4+ /hpf (NONE) H 06/17/25 14:54 Hyaline Casts 3.71 /lpf 06/17/25 14:54 All radiology interpretation(s) finalized by discharge Discharge Plan Discharge Patient Disposition: Home Clinical Impression: Seizure Condition: Stable Prescriptions: No Action lorazepam 2 mg tablet 2 mg PO BID Qty: 60 5RF mirtazapine 15 mg tablet 15 mg PO BEDTIME Qty: 30 11RF quetiapine 300 mg tablet 300 mg PO BID Qty: 60 11RF sertraline 100 mg tablet 100 mg PO BEDTIME Qty: 30 11RF metoprolol tartrate 25 mg tablet 25 mg PO BID Qty: 60 2RF omega 5-ybj-yyh-fish oil [Fish Oil] 300-1,000 mg capsule See Rx Instructions .ROUTE .COMPLEX Qty: 180 4RF Dose Instruction: TAKE ONE CAPSULE BY MOUTH TWICE DAILY - 8:00AM AND 7:00PM Rx Instructions: TAKE ONE CAPSULE BY MOUTH TWICE DAILY - 8:00AM AND 7:00PM melatonin 10 mg tablet extended release 10 mg PO BEDTIME Qty: 30 11RF fluticasone propionate 50 mcg/actuation spray,suspension 2 spray intranasal DAILY Qty: 16 5RF levocetirizine 5 mg tablet 5 mg PO DAILY Qty: 60 5RF acetaminophen 325 mg tablet 650 mg PO QID PRN (Reason: fever > 100.4F OR PAIN) Qty: 60 11RF Orajel 3X Toothache-Gum 20-0.26-0.15 % gel 1 ea mucous membrane TID PRN (Reason: mouth sores) Qty: 7 11RF Dimetapp DM Cold-Cough (PE) 1-2.5-5 mg/5 mL solution 20 ml PO Q4H PRN (Reason: Cough) Qty: 118 11RF chlorhexidine gluconate 0.12 % mouthwash 15 ml buccal BID PRN (Reason: mouth sores) Qty: 1893 11RF docusate sodium 100 mg capsule 100 mg PO BID Qty: 60 11RF furosemide 20 mg tablet 20 mg PO .every other day Qty: 30 2RF L norgest/e.estradiol-e.estrad [Daysee] 0.15 mg-30 mcg (84)/10 mcg (7) tablets,dose pack,3 month 1 tab PO DAILY Qty: 182 3RF Rx Instructions: skip placebo week ondansetron 4 mg tablet,disintegrating 4 mg PO Q6H PRN (Reason: nausea and vomiting) Qty: 14 0RF polyethylene glycol 3350 17 gram/dose powder See Rx Instructions .ROUTE .COMPLEX Qty: 510 5RF Dose Instruction: MIX AND DRINK 17 GRAMS IN LIQUID DAILY NEEDED FOR CONSTIPATION Rx Instructions: MIX AND DRINK 17 GRAMS IN LIQUID DAILY NEEDED FOR CONSTIPATION magnesium hydroxide [Milk of Magnesia] 400 mg/5 mL suspension 30 ml PO BID PRN (Reason: Indigestion) Qty: 355 11RF olopatadine 0.2 % drops 1 drp ophthalmic (eye) DAILY@1900 potassium chloride [Klor-Con 10] 10 mEq tablet extended release 10 meq PO .EVERY OTHER DAY calcium carbonate-vitamin D3 600 mg-5 mcg (200 unit) tablet 1 tab PO .@8AM quetiapine 100 mg tablet 100 mg PO .@3PM calcium polycarbophil [Fiber-Lax] 625 mg tablet 625 mg PO DAILY PRN (Reason: Constipation) ketoconazole 2 % cream 1 applic topical BID PRN (Reason: Skin Irritation) levetiracetam 1,000 mg tablet 1,000 mg PO BID Discharge Orders: Discharge ED (Routine); Ordered 06/17/25 Ordered By: Susi James Referrals: Tameka Saucedo FNP-C [Primary Care Provider, Family Practice] Patient Instructions: Patient Portal & Maite Instructions Activity Restrictions/Additional Instructions: As we discussed please follow up with neurology as scheduled. We will not change her epilepsy medication at this time since it has been over a year since her last seizure. She may return to the ED at any point for any further concerns you may have. Print Language: French Coding Level of Care Code ED Geoint Analyst for Elder Luna
--- NOTE | 2025-06-17 14:02 | XRR_ITS ---
PROCEDURE INFORMATION: Exam: XR Chest Exam date and time: 06/17/2025 2:34 PM Age: 55 years old Clinical indication: Condition or disease; Other: Seizure TECHNIQUE: Imaging protocol: Radiologic exam of the chest. Views: 1 view. COMPARISON: CR XR chest 1V portable [id number] 06/19/2024 9:42 PM FINDINGS: Tubes, catheters and devices: EKG leads project over the chest and may obscure pathology. Lungs: Unremarkable. No consolidation. Pleural spaces: Unremarkable. No gross pleural effusion. No pneumothorax. Heart/Mediastinum: Unremarkable. No cardiomegaly. Bones/joints: There are costochondral calcifications. XR/XR chest 1V portable [id number] IMPRESSION: No acute cardiopulmonary process.
[2025-06-17 14:16] LABS: Hematocrit 41.9 % (36-47); Hemoglobin 13.80 g/dL (11.27-16.99); Mean Corpuscular HGB Conc 32.9 g/dL (30-55); Mean Corpuscular Hemoglobin 32.1 pg (27-33); Mean Corpuscular Volume 97.4 fl (85-98); Nucleated Red Blood Cells % 0 %; Platelet Count 237 10^3/cmm (157-399); Red Blood Count 4.30 10^6/uL (3.85-5.65); White Blood Count 6.48 10^3/uL (3.29-11.43)
[2025-06-17 14:18] VITALS: BP 151/86; PULSE 69; RESP 17; O2SAT 97
--- NOTE | 2025-06-17 14:33 | PC.PHAR ---
Addendum entered by Petty Dick 06/17/25 14:35: TNL phone [phone] Original Note: pt is from [facility] Supported living. Caregiver has a med list.
[2025-06-17 14:35] LABS: Alanine Aminotransferase 20 U/L (0-33); Albumin Level 4.4 g/dL (3.5-5.2); Alkaline Phosphatase 71 U/L (35-105); Anion Gap 14.9 (5-19); Aspartate Amino Transferase 18 U/L (0-32); Blood Urea Nitrogen 13 mg/dL (6-20); Calcium 9.6 mg/dL (8.5-10.5); Carbon Dioxide 25 mmol/L (22-29); Chloride 105 mmol/L (98-107); Creatinine Clr Calc Pharmacy 76.2995; Globulin 3.4 g/dL (1.3-4.6); Glucose 138 mg/dL (65-115); Osmolality Calculated 294 mOsm/kg (285-295); Potassium 3.9 mmol/L (3.5-5.1); Sodium 141 mmol/L (136-145); Total Protein 7.8 g/dL (6.6-8.7)
[2025-06-17 15:07] LABS: Glucose Urine UA Negative (Normal); Nitrate Urine Negative (Negative); Specific Gravity, Urine 1.006 (1.005-1.030)
[2025-06-17 15:12] LABS: Add Urine Microscopic? YES
[2025-06-17 15:30] VITALS: PULSE 76; RESP 16; O2SAT 98
[2025-06-17 15:33] LABS: UA Slide Review UA Slide Review Perf
[2025-06-17 16:06] VITALS: BP 146/91; PULSE 90; RESP 16; O2SAT 97
== END 2025-06-17 16:08 | disposition home or self-care (01) ==
PROVIDERS: Emergency Provider Physician Assistant; PCP Nurse Practitioner Family
DX: R56.9 Unspecified convulsions (principal); I12.9 Hypertensive chronic kidney disease with stage 1 through stage 4 chronic kidney disease, or unspecified chronic kidney disease; N18.9 Chronic kidney disease, unspecified
CPT/HCPCS: 71045; 80053; 81001; 85025; 99284

== ENCOUNTER 2025-07-07 02:58 | Emergency (ER) | payer MEDICARE, MEDICAID, SELFPAY ==
[2025-07-07 02:59] VITALS: BP 165/104; PULSE 85; RESP 18; TEMP 36.7; O2SAT 98; BMI 32.5
--- OUTSIDE RECORDS SUMMARY | 2025-07-07 03:01 | XMS_ITS | Encounter Summary ---
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
--- OUTSIDE RECORDS SUMMARY | 2025-07-07 03:01 | XMS_ITS | Clinical Summary ---
Author Organization [facility] Address [address] 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
--- OUTSIDE RECORDS SUMMARY | 2025-07-07 03:01 | XMS_ITS | Clinical Summary ---
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 Gender Identity Not on file Sexual Orientation Not on file Occupation Industry Job Start Date Job End Date Not on file Not on file Not on file Not on file Last Filed Vital Signs Vital Sign Reading Time Taken Comments Blood Pressure 119/82 10/19/2012 2:17 PM ROD BUSTER HELPER Pulse 66 10/19/2012 2:17 PM ROD BUSTER HELPER Temperature - - Respiratory Rate - - Oxygen Saturation 100% 10/19/2012 2:17 PM ROD BUSTER HELPER Inhaled Oxygen Concentration - - Weight 64.4 kg (142 lb) 10/19/2012 2:17 PM ROD BUSTER HELPER Height 162.6 cm (5' 4 ) 10/19/2012 2:17 PM ROD BUSTER HELPER Body Mass Index 24.37 10/19/2012 2:17 PM ROD BUSTER HELPER Plan of Treatment Health Maintenance Due Date [...] 2) 2022 INFLUENZA VACCINE (#1) 2025 Insurance [facility] MEDICAID [place] Member Subscriber Plan / Payer (Ef fective 2011-Present) Name:Catrina Whitney Relation to Subscriber:Self Name:Catrina Whitney Payer ID:[id number] Group ID:Not on file Type:Medicaid Address: [address] MEDICAID DENTAL
--- NOTE | 2025-07-07 03:14 | ECG_ITS ---
[facility] 2025-07-07 Pat Name: Catrina Whitney Department: Room: Gender: Female Lens Examiner: : 1970 Requested By: Sha Alejandro Order Number: [id number] Cardoza MD: Althea Henson M.D. Measurements Intervals [place] Rate: 69 P: 36 VT: 146 QRS: -23 QRSD: 84 T: 30 QT: 383 QTc: 411 Interpretive Statements SINUS RHYTHM possible old septal MN BORDERLINE LEFT AXIS DEVIATION [QRS AXIS < -20] MINIMAL VOLTAGE CRITERIA FOR LVH, CONSIDER NORMAL VARIANT [MEETS CRITERIA IN ONE OF: R(aVL), S(V1), R(V5), R(V5/V6)+S(V1)] Compared to ECG 06/19/2024 23:34:22 No significant changes Electronically Signed On 07-07-2025 13:49:36 PARKING TECHNICIAN by Althea Henson M.D. [email or web address]
[2025-07-07 03:26] LABS: Hematocrit 38.8 % (36-47); Hemoglobin 12.70 g/dL (11.27-16.99); Mean Corpuscular HGB Conc 32.7 g/dL (30-55); Mean Corpuscular Hemoglobin 32.0 pg (27-33); Mean Corpuscular Volume 97.7 fl (85-98); Nucleated Red Blood Cells % 0 %; Platelet Count 248 10^3/cmm (157-399); Red Blood Count 3.97 10^6/uL (3.85-5.65); White Blood Count 7.38 10^3/uL (3.29-11.43)
[2025-07-07 03:39] LABS: Lactic Sepsis W/Reflex 1.3 mmol/L (0.5-2.2)
[2025-07-07 03:40] LABS: Anion Gap 13.0 (5-19); Blood Urea Nitrogen 15 mg/dL (6-20); Calcium 8.9 mg/dL (8.5-10.5); Carbon Dioxide 25 mmol/L (22-29); Chloride 105 mmol/L (98-107); Glucose 123 mg/dL (65-115); Magnesium 2.1 mg/dL (1.7-2.3); Osmolality Calculated 290 mOsm/kg (285-295); Potassium 4.0 mmol/L (3.5-5.1); Sodium 139 mmol/L (136-145)
[2025-07-07] MEDS: levETIRAcetam 2,000 MG/200 ML PREMIX 400 MG IV (03:40)
[2025-07-07 04:06] LABS: CRP High Sensitivity Cardiac 1.280 mg/dL (0.0-0.3)
[2025-07-07 04:44] VITALS: BP 135/84; PULSE 69; RESP 16; O2SAT 97
--- NOTE | 2025-07-07 05:22 | W.ED.SEIZURE ---
HPI - Seizure General: Chief Complaint: Seizure Stated Complaint: seizure Time Seen by Provider: 07/07/25 02:59 History of Present Illness: HPI Narrative: Patient is a 55 developmentally delayed female residing in a supported housing facility who presents with a history of absence seizures, having experienced two witnessed episodes today?one in the afternoon and one in the evening. She has not been taking her prescribed medications, which reportedly include Keppra and Ativan. The patient also reports a headache for one day, which she does not typically experience with some right wrist pain to which she attributes to pushing off her right arm awkwardly. Feels overall well and denies recent FLS, syncope, NVD, abd pain. Seizure History: Yes Associated symptoms: Deny chest pain, chills or fever(s) Related Data Home Medications ?Medication ?Instructions ?Recorded ?Confirmed olopatadine 0.2 % eye drops 1 drp ophthalmic (eye) DAILY@1900 02/18/21 06/17/25 calcium 600 mg (as 1 tab PO .@8AM 06/17/25 06/17/25 carbonate)-vitamin D3 5 mcg (200 unit) tablet calcium polycarbophil 625 mg 625 mg PO DAILY PRN Constipation 06/17/25 06/17/25 tablet (Fiber-Lax) ketoconazole 2 % topical cream 1 applic topical BID PRN Skin 06/17/25 06/17/25 Irritation levetiracetam 1,000 mg tablet 1,000 mg PO BID 06/17/25 06/17/25 potassium chloride 10 mEq 10 meq PO .EVERY OTHER DAY only 06/17/25 06/17/25 tablet,extended release (Klor-Con) with lasix quetiapine 100 mg tablet 100 mg PO .@3PM 06/17/25 06/17/25 Previous Rx's ?Medication ?Instructions ?Recorded omega 8-xuo-mki-fish oil 300 See Rx Instructions .Route 01/09/25 mg-1,000 mg capsule (Fish Oil) .COMPLEX #180 ea melatonin 10 mg tablet,extended 10 mg PO BEDTIME #30 tabs 01/11/25 release fluticasone propionate 50 2 spray intranasal DAILY #16 grams 03/13/25 mcg/actuation nasal spray,suspension lorazepam 2 mg tablet 2 mg PO BID #60 tabs 05/03/25 mirtazapine 15 mg tablet 15 mg PO BEDTIME #30 tabs 05/03/25 quetiapine 300 mg tablet 300 mg PO BID agitation and mood 05/03/25 #60 tabs sertraline 100 mg tablet 100 mg PO BEDTIME #30 tabs 05/03/25 levocetirizine 5 mg tablet 5 mg PO DAILY allergy symptoms #60 05/10/25 tabs L norgest/E estradiol-E estrad 1 tab PO DAILY #182 ea 05/15/25 0.15 mg-30 mcg (84)/10 mcg(7) tabs,3mos (Daysee) acetaminophen 325 mg tablet 650 mg (2 x 325 mg) PO QID PRN 05/15/25 fever > 100.4F OR PAIN #60 tabs benzocaine 20 %-menthol 0.26 1 ea mucous membrane TID PRN mouth 05/15/25 %-zinc chloride 0.15 % mucosal gel sores #7 grams (Orajel 3X Toothache-Gum) otqzoucdysmpjkx-kdycgdrljdjcj-IF 1 20 ml PO Q4H PRN Cough #118 mL 05/15/25 mg-2.5 mg-5 mg/5 mL oral solution (Dimetapp DM Cold-Cough (PE)) chlorhexidine gluconate 0.12 % 15 ml buccal BID PRN mouth sores 05/15/25 mouthwash #1,893 mL docusate sodium 100 mg capsule 100 mg PO BID #60 caps 05/15/25 furosemide 20 mg tablet 20 mg PO .every other day #30 tabs 05/15/25 magnesium hydroxide 400 mg/5 mL 30 ml PO BID PRN Indigestion #355 05/15/25 oral suspension (Milk of Magnesia) mL ondansetron 4 mg disintegrating 4 mg PO Q6H PRN nausea and 05/15/25 tablet vomiting #14 tabs polyethylene glycol 3350 17 See Rx Instructions .Route 05/15/25 gram/dose oral powder .COMPLEX #510 grams metoprolol tartrate 25 mg tablet 25 mg PO BID #60 tabs 07/10/25 Allergies Allergy/AdvReac Type Severity Reaction Status Date / Time nystatin Allergy Unknown Verified 05/03/25 09:58 Review of Systems General: Reports: 10 or more systems reviewed and unremarkable except in HPI and below Const: Denies: fever(s) or chills Eyes: Denies: change in vision or eye discharge Card: Denies: chest pain, palpitations or swelling of feet/ankles Resp: Denies: dyspnea or productive cough GI: Denies: abdominal pain or diarrhea Musc: Reports: extremity pain; Denies: neck pain or back pain Skin/Breast: Denies: rash or jaundice Neuro: Reports: seizure-like activity; Denies: headache(s), numbness in extremities or weakness in extremities [place]/Lymph: Denies: easy bruising or easy bleeding PFSH ED PFSH: Medical History (Updated 07/07/25 @ 05:43 by Sha Alejandro DO) Seizures Psychiatric care Bilateral renal cysts CKD (chronic kidney disease) Hypertension PTTD (posterior tibial tendon dysfunction) Drug induced akathisia Social History Smoking and tobacco/nicotine status: never used tobacco/nicotine Second hand smoke exposure: No Alcohol intake: never Substance/Drug Use: never Lives independently: No Housing: Other Details: care home Marital status: Single Current occupational status: disabled Current gender identity: Female Physical Exam Narrative: EXAM NARRATIVE: well appearing, afebrile, VSS, NAD. developmentally delayed but GCS 15, able to answer questions and follow commands, PERRL, no nystagmus, doesnt appear post ictal. no signs of trauma. R wrist with no overlying swelling, erythema, full ROM but minor pain with extension. no tongue biting or intraoral bleeding. abd soft NT ND. breathing comfortably on RA, saturating well, clear and BL brath sounds. NSR with no murmurs, no leg sweling, good CR, 2+ pulses throughout. Course Vital Signs: Vital signs: Vital Signs Temperature 98.1 F 07/07/25 02:59 Pulse Rate 84 07/07/25 05:49 Respiratory Rate 18 07/07/25 05:49 Blood Pressure 151/81 07/07/25 05:49 Pulse Oximetry 98 07/07/25 05:49 Oxygen Delivery Me thod Room Air 07/07/25 04:44 MDM - Seizure MDM Narrative Medical decision making narrative: -ddx: seizure, anxiety, PNES, dehydration, right wrist sprain, tension MCALLISTER, migraine -patient overall well appearing, with 2 apparent short sustained episdoes of absecne like seizures, nothing GTC, apaprently in setting of refusing her nighttime meds, which she has a hx of doing. will give her IV dose of Keppra, eval for concerning other breakthrough seizure causes, treat her MCALLISTER with toradol and reassess. -patient with no further episodes of sz like activity after keppra given, was at baseline mentation per construction grip. labs not concerning for any worriseome secondary causes of breakthrough seizure. MCALLISTER was improved with toradol, right wrist clinically did not need XR to exclude fracture and so she was deemed stable for dc home and to fu with PCP in a few days for reevaluation, strict return precautions given. Lab Data 07/07/25 03:05 07/07/25 03:05 Labs: Laboratory Results WBC 7.38 10^3/uL (3.29-11.43) 07/07/25 03:05 RBC 3.97 10^6/uL (3.85-5.65) 07/07/25 03:05 Hgb 12.70 g/dL (11.27-16.99) 07/07/25 03:05 Hct 38.8 % (36-47) 07/07/25 03:05 MCV 97.7 fl (85-98) 07/07/25 03:05 MCH 32.0 pg (27-33) 07/07/25 03:05 MCHC 32.7 g/dL (30-55) 07/07/25 03:05 RDW 13.0 % (12.1-15.1) 07/07/25 03:05 Plt Count 248 10^3/cmm (157-399) 07/07/25 03:05 MPV 11.1 fL (7.4-10.4) H 07/07/25 03:05 Neut % (Auto) 58.9 % 07/07/25 03:05 Lymph % (Auto) 28.0 % 07/07/25 03:05 [place] % (Auto) 9.1 % 07/07/25 03:05 Eos % (Auto) 2.7 % 07/07/25 03:05 Baso % (Auto) 0.8 % 07/07/25 03:05 Neut # (Auto) 4.34 10^3/uL (1.8-7.7) 07/07/25 03:05 Lymph # (Auto) 2.1 10^3/uL (0.8-4.8) 07/07/25 03:05 [place] # (Auto) 0.7 10^3/uL (0.2-0.9) 07/07/25 03:05 Eos # (Auto) 0.2 10^3/uL (0.0-0.8) 07/07/25 03:05 Baso # (Auto) 0.1 10^3/uL (0.0-0.1) 07/07/25 03:05 Nucleated RBC % (auto) 0 % 07/07/25 03:05 Nucleated RBCs # 0.0 /100WBC 07/07/25 03:05 Sodium 139 mmol/L (136-145) 07/07/25 03:05 Potassium 4.0 mmol/L (3.5-5.1) 07/07/25 03:05 Chloride 105 mmol/L (98-107) 07/07/25 03:05 Carbon Dioxide 25 mmol/L (22-29) 07/07/25 03:05 Anion Gap 13.0 (5-19) 07/07/25 03:05 BUN 15 mg/dL (6-20) 07/07/25 03:05 Creatinine 1.1 mg/dL (0.5-0.9) H 07/07/25 03:05 GFR Calculation 52.0 mL/min (90-130) L 07/07/25 03:05 Glucose 123 mg/dL (65-115) H 07/07/25 03:05 Calculated Osmolality 290 mOsm/kg (285-295) 07/07/25 03:05 Lactic Acid 1.3 mmol/L (0.5-2.2) 07/07/25 03:05 Calcium 8.9 mg/dL (8.5-10.5) 07/07/25 03:05 Phosphorus 2.5 mg/dL (2.5-4.5) 07/07/25 03:05 Magnesium 2.1 mg/dL (1.7-2.3) 07/07/25 03:05 C-React Prot High Sens 1.280 mg/dL (0.0-0.3) H 07/07/25 03:05 No radiology studies performed this visit Discharge Plan Discharge Patient Disposition: Home Clinical Impression: Seizure Condition: Stable Prescriptions: No Action lorazepam 2 mg tablet 2 mg PO BID Qty: 60 5RF mirtazapine 15 mg tablet 15 mg PO BEDTIME Qty: 30 11RF quetiapine 300 mg tablet 300 mg PO BID Qty: 60 11RF sertraline 100 mg tablet 100 mg PO BEDTIME Qty: 30 11RF omega 2-uqb-tjf-fish oil [Fish Oil] 300-1,000 mg capsule See Rx Instructions .ROUTE .COMPLEX Qty: 180 4RF Dose Instruction: TAKE ONE CAPSULE BY MOUTH TWICE DAILY - 8:00AM AND 7:00PM Rx Instructions: TAKE ONE CAPSULE BY MOUTH TWICE DAILY - 8:00AM AND 7:00PM melatonin 10 mg tablet extended release 10 mg PO BEDTIME Qty: 30 11RF fluticasone propionate 50 mcg/actuation spray,suspension 2 spray intranasal DAILY Qty: 16 5RF levocetirizine 5 mg tablet 5 mg PO DAILY Qty: 60 5RF acetaminophen 325 mg tablet 650 mg PO QID PRN (Reason: fever > 100.4F OR PAIN) Qty: 60 11RF Orajel 3X Toothache-Gum 20-0.26-0.15 % gel 1 ea mucous membrane TID PRN (Reason: mouth sores) Qty: 7 11RF Dimetapp DM Cold-Cough (PE) 1-2.5-5 mg/5 mL solution 20 ml PO Q4H PRN (Reason: Cough) Qty: 118 11RF chlorhexidine gluconate 0.12 % mouthwash 15 ml buccal BID PRN (Reason: mouth sores) Qty: 1893 11RF docusate sodium 100 mg capsule 100 mg PO BID Qty: 60 11RF furosemide 20 mg tablet 20 mg PO .every other day Qty: 30 2RF L norgest/e.estradiol-e.estrad [Daysee] 0.15 mg-30 mcg (84)/10 mcg (7) tablets,dose pack,3 month 1 tab PO DAILY Qty: 182 3RF Rx Instructions: skip placebo week ondansetron 4 mg tablet,disintegrating 4 mg PO Q6H PRN (Reason: nausea and vomiting) Qty: 14 0RF polyethylene glycol 3350 17 gram/dose powder See Rx Instructions .ROUTE .COMPLEX Qty: 510 5RF Dose Instruction: MIX AND DRINK 17 GRAMS IN LIQUID DAILY NEEDED FOR CONSTIPATION Rx Instructions: MIX AND DRINK 17 GRAMS IN LIQUID DAILY NEEDED FOR CONSTIPATION magnesium hydroxide [Milk of Magnesia] 400 mg/5 mL suspension 30 ml PO BID PRN (Reason: Indigestion) Qty: 355 11RF metoprolol tartrate 25 mg tablet 25 mg PO BID Qty: 60 2RF olopatadine 0.2 % drops 1 drp ophthalmic (eye) DAILY@1900 potassium chloride [Klor-Con 10] 10 mEq tablet extended release 10 meq PO .EVERY OTHER DAY calcium carbonate-vitamin D3 600 mg-5 mcg (200 unit) tablet 1 tab PO .@8AM quetiapine 100 mg tablet 100 mg PO .@3PM calcium polycarbophil [Fiber-Lax] 625 mg tablet 625 mg PO DAILY PRN (Reason: Constipation) ketoconazole 2 % cream 1 applic topical BID PRN (Reason: Skin Irritation) levetiracetam 1,000 mg tablet 1,000 mg PO BID Discharge Orders: Discharge ED (Routine); Ordered 07/07/25 Ordered By: Sha Alejandro Referrals: Tameka Saucedo FNP-C [Primary Care Provider, Family Practice] Discharge Diet: Usual diet Discharge Activity: Resume usual activity Patient Instructions: Opioid Safety, Pain Management, Patient Portal & [place] Instructions Activity Restrictions/Additional Instructions: You were seen for your seizure-like activity, your evaluated with labs that were ultimately reassuring, you were given double your dose of nighttime seizure medication at home with no further seizure-like activity, you were deemed stable to be discharged home. Continue to take your seizure medication as originally prescribed and stay hydrated. Return to the ED with recurrent seizures, severe headaches, episodes of passing out, vomiting, fevers, any other emergent concerns. Print Language: Spanish Coding Level of Care Code ED Cart Driver for Elder Luna
[2025-07-07 05:49] VITALS: BP 151/81; PULSE 84; RESP 18; O2SAT 98
== END 2025-07-07 05:50 | disposition home or self-care (01) ==
PROVIDERS: Emergency Provider Student in an Organized Health Care Education/Training Program; PCP Nurse Practitioner Family
DX: R56.9 Unspecified convulsions (principal); I12.9 Hypertensive chronic kidney disease with stage 1 through stage 4 chronic kidney disease, or unspecified chronic kidney disease; N18.9 Chronic kidney disease, unspecified
CPT/HCPCS: 36415; 80048; 83605; 83735; 84100; 85025; 86141; 93005; 96374; 96375; 99284; J1885; J1953; J7030